=== PATIENT | female | born 1970 ===

== ENCOUNTER 2020-06-12 10:15 | Outpatient (REF) | payer OTHER, SELFPAY ==
--- NOTE | ~2020-06-12 | US_ITS ---
EXAMINATION: US VENOUS ULTRASOUND WITH DOPPLER LOWER EXTREMITY, LEFT CLINICAL INFORMATION: Acute embolism and thrombosis of unspecified deep veins COMPARISON: None TECHNIQUE: Ultrasound of the deep veins is performed from the hip to the calf with compression sonography and color and pulse Doppler assessment. Spectral analysis with color-flow imaging is performed. FINDINGS: There is normal venous compression and respiratory variation and augmented flow. The visualized common femoral vein, superficial femoral vein, profunda femoral vein, popliteal vein, and the trifurcation region shows no evidence of deep venous thrombosis. There is no significant popliteal fossa cyst. US/US venous duplex LE LT IMPRESSION: No DVT demonstrated in the left lower extremity.
== END 2020-06-12 10:16 | disposition home or self-care (01) ==
LOC: HO.HMGCX 10:15
PROVIDERS: PCP Internal Medicine; Visit Provider Nurse Practitioner Family
DX: I82.402 Acute embolism and thrombosis of unspecified deep veins of left lower extremity (principal)
CPT/HCPCS: 93971

== ENCOUNTER 2021-12-08 13:54 | Emergency (ER) | payer MEDICAID, SELFPAY ==
[2021-12-08 14:23] VITALS: BP 141/75; PULSE 91; RESP 18; TEMP 37.2; O2SAT 95; BMI 46.7
[2021-12-08 16:18] LABS: Appearance Urine Clear; Color Urine Yellow; Glucose Urine UA Negative (Negative); Leukocyte Esterase Urine Negative (Negative); Nitrite Urine Negative (Negative); Urine Blood Moderate (2+) (Negative); Urine Ketones Negative (Negative); Urine Protein Trace mg/dL (Neg-Trace)
[2021-12-08 16:23] LABS: Bacteria Urine 4+ (None Seen); Hyaline Casts Urine 0-2 /LPF (0-2); Squamous Epithelial Cell Urine 0-2 /HPF (0-2); WBC Urine 0-5 /HPF (0-5)
== END 2021-12-08 21:51 | disposition left against medical advice (07) ==
LOC: HO.ED 21:42
PROVIDERS: Emergency Provider Emergency Medicine; PCP Internal Medicine
DX: R10.9 Unspecified abdominal pain (principal); R11.2 Nausea with vomiting, unspecified
CPT/HCPCS: 81001; 99282

== ENCOUNTER 2023-02-15 05:46 | Inpatient (IN) | payer MEDICAID, SELFPAY ==
--- NOTE | ~2023-02-15 | US_ITS ---
EXAMINATION: US ABDOMEN LIMITED CLINICAL INFORMATION: Right upper quadrant pain. COMPARISON: None available. TECHNIQUE: Real-time imaging of the right upper quadrant abdominal viscera. FINDINGS: PANCREAS: Obscured. LIVER: The liver is normal in size. The liver contour is normal. There is diffuse increased liver parenchymal echogenicity, consistent with hepatic steatosis. No definite focal lesion is seen, but evaluation is limited due to poor sound beam penetration through the coarse echogenic liver parenchyma. There is no intrahepatic biliary duct dilatation seen. GALLBLADDER: Positive sonographic Wilks's sign. The gallbladder contains multiple stones and sludge with wall thickening/edema and pericholecystic fluid. COMMON BILE DUCT: Dilated in caliber measuring 1.3 cm in diameter. RIGHT KIDNEY: No hydronephrosis. No renal calculi or focal parenchymal lesions. The kidney measures 8.4 cm in maximum dimension. FREE FLUID: None. US/US abdomen limited IMPRESSION: Cholelithiasis with gallbladder wall thickening and pericholecystic fluid. Positive sonographic Wliks's sign. Findings likely represent cholecystitis. Advise clinical correlation and recommend surgical consultation. Dilated common duct at 1.3 cm. This may be further evaluated with MRCP. Hepatic steatosis.
--- NOTE | ~2023-02-15 | CT_ITS ---
EXAMINATION: CT ABDOMEN AND PELVIS WITH CONTRAST CLINICAL INFORMATION: Epigastric pain. COMPARISON: 02/15/2023 TECHNIQUE: Multidetector volumetric images were obtained from the superior aspect of the liver through the pubic symphysis following administration 85 mL of Omnipaque 350 intravenous contrast. Sagittal and coronal reformatted images were obtained on the technologist's workstation. Oral contrast: No This CT examination was performed using dose optimization techniques as appropriate, variously including the following: *Automated exposure control *Adjustment of mA and/or kV according to patient size (this includes techniques or standardized protocols for targeted exams where dose is matched to indication/reason for exam; i.e. extremities or head) *Use of iterative reconstruction technique DLP: 1497 mGy-cm FINDINGS: LUNG BASES: The visualized lung bases are unremarkable. LIVER, GALLBLADDER, AND BILIARY TREE: The liver is decreased in attenuation. The common duct measures 1.2 cm at the naatlie hepatis. Mild central intrahepatic biliary ductal dilatation is present. Distended gallbladder with gallstones. PANCREAS: Unremarkable. SPLEEN: Unremarkable. ADRENAL GLANDS: Unremarkable. KIDNEYS AND URETERS: The kidneys are normal in size, shape, and attenuation. 1.2 cm midpole left renal cyst. No further imaging follow-up is needed. No hydronephrosis or perinephric stranding. BLADDER: Unremarkable. GASTROINTESTINAL TRACT: The small and large bowel are unremarkable. The appendix is unremarkable. ABDOMINAL WALL: No significant hernia is appreciated. LYMPH NODES: No bulky lymphadenopathy. VASCULAR: Normal caliber abdominal aorta. PELVIC VISCERA: Unremarkable. OSSEOUS STRUCTURES: No destructive bone lesions. CT/CT abdomen pelvis w IV con IMPRESSION: Cholelithiasis with gallbladder distention. Please see results of right upper quadrant ultrasound performed concurrently. Intrahepatic and extrahepatic biliary ductal dilatation. MRCP may be performed for further evaluation.
[2023-02-15 05:47] VITALS: BP 156/73; PULSE 85; RESP 18; TEMP 36.8; O2SAT 98; BMI 41.8
[2023-02-15 06:06] VITALS: BP 156/97; PULSE 76; RESP 17; TEMP 37.3; O2SAT 97
--- NOTE | 2023-02-15 06:37 | ED_ITS ---
HPI - Abdominal Pain General Chief Complaint: Abdominal Pain Stated Complaint: gen med Time Seen by Provider: 02/15/23 06:34 Source: patient and RN notes reviewed Mode of arrival: ambulatory Limitations: no limitations History of Present Illness HPI narrative: This is a 52-year-old female, with a history of hypothyroidism and gastritis, presenting to emergency department with complaints of epigastric pain x2 days. Patient states that on Wednesday she had consumed chickpeas and salsa. She immediately started to feel acid in her throat. Patient states that she had 2 episodes of vomiting on wednesday and another episode of vomiting yesterday. She states that she did not take her omeprazole on Wednesday and believes that this had exacerbated her gastritis. She states that her current pain feels like her typical gastritis flares that she has had in the past. She denies any fevers, chills, chest pain, shortness of breath, current nausea, vomiting, diarrhea. She also reports that yesterday she had a bowel movement that relieved some of the pain. She had a D&C several years ago in [place], otherwise no other abdominal surgeries. She tried [id number] [place] for her symptoms which provided her with minimal relief. No other complaints or concerns at this time. MD elicited complaint: abdominal pain Pertinent past history: gastritis Onset (ago): day(s) Pain Consistency: constant Location: epigastric Severity: moderate Quality: cramping Radiation: none Migration to: no migration Exacerbating factors: eating Relieving factors: nothing Associated symptoms: denies other symptoms Related Data Home Medications Medication Instructions Recorded Confirmed albuterol sulfate 2.5 mg/3 mL mg inhalation TID 06/06/20 (0.083 %) solution for nebulization Previous Rx's Medication Instructions Recorded trazodone 100 mg tablet 100 mg PO DAILY #30 tabs 03/08/20 cyclobenzaprine 10 mg tablet 10 mg PO BEDTIME PRN muscle spasm 06/06/20 30 days #30 tabs ibuprofen 800 mg tablet 800 mg PO Q8H PRN pain 15 days #30 06/06/20 tabs albuterol sulfate 90 mcg/actuation 2 puff inhalation Q4H PRN 09/08/20 aerosol inhaler bronchospasm 30 days #6.7 grams levothyroxine 150 mcg tablet 150 mcg PO QAM #30 tabs 05/30/21 omeprazole 20 mg capsule,delayed 20 mg PO DAILY 90 days #90 caps 03/13/22 release Allergies Allergy/AdvReac Type Severity Reaction Status Date / Time No Known Allergies Allergy Verified 02/15/23 05:53 Review of Systems Review of Systems Yes all other systems are reviewed and are negative Constitutional: Reports as per HPI [facility] Past Medical History Medical History (Updated 02/15/23 @ 11:20 by TRUNG Sotelo) Breast pain Breast cancer screening, high risk patient Skin rash Hypothyroidism Left leg pain DVT of leg (deep venous thrombosis) Ectopic Family History Family History Father Diabetes mellitus Mother Unknown family medical history Paternal Grandmother Diabetes mellitus Hypertension Stroke Social History Social History (Updated 06/06/20 @ 11:10 by Kathy Quiñonez) Alcohol intake: never Cigarettes Per Day: 4 Smoked in Last 30 Days: Yes Use of substances other than those prescribed or required for medical reasons: No Advance Directives: No Advance Directives Information Provided: No Physical Exam ED Vital Signs: Vital Signs - 24 hr 02/15/23 05:47 02/15/23 06:06 02/15/23 09:30 Temperature 98.2 F 99.1 F 98.5 F Pulse Rate 85 76 74 Respiratory Rate 18 17 16 Blood Pressure 156/73 H 156/97 H 150/71 H Pulse Oximetry 98 97 96 Oxygen Delivery Method Room Air Room Air Room Air BMI result Body Mass Index 41.8 Const General: cooperative, comfortable and no acute distress Orientation/consciousness: patient oriented x3 Limitations: no limitations [facility] Head: Yes normal to inspection, Yes normocephalic and Yes atraumatic Ears: hearing grossly normal bilaterally General nose exam: Normal external nose present Face and sinus: Yes normal facial exam Mouth: Normal oral and palatal mucosa present, oropharynx normal and moist mucous membranes Throat: Yes posterior oropharynx normal Eyes General: appearance normal, both eyes and all related structures Eyelids: Yes eyelids normal Conjunctivae: conjunctivae normal Sclerae: sclerae normal Pupils: Equal, round and reactive pupils present EOM: EOMs intact bilaterally Neck Neck: Yes normal visual inspection, Yes full ROM and Yes no lymphadenopathy Lymphatic: no lymphadenopathy noted Chest Chest palpation & inspection: normal inspection of the chest Resp Effort & Inspection: normal respiratory effort and able to speak in complete sentences Auscultation: clear to auscultation bilaterally, no crackles, no rales, no rhonchi and no wheezes Cardio Rate: regular rate Rhythm: regular rhythm Heart sounds: S1 normal heart sound present and S2 normal heart sound present GI Other: Abdomen is soft, with mild tenderness to palpation in the epigastrium and right upper quadrant. No rebound or guarding. Inspection: Yes normal to inspection Skin General skin exam: no rashes or lesions noted Trauma: no lacerations or abrasions Wounds: no wounds Neuro General: patient oriented x3 and moves all extremities Cranial nerves: Yes Equal, round and reactive pupils present Extrem General: Yes normal to inspection Right upper extremity: normal to inspection Left upper extremity: normal to inspection Right lower extremity: normal to inspection Left lower extremity: normal to inspection Course Reevaluation(s) Reevaluation #1: Ultrasound returns, cholelithiasis with gallbladder wall thickening in pericholecystic fluid. Positive sonographic Wilks sign. Findings likely represent cholecystitis. The common bile duct is dilated at 1.3 cm. Patient re-evaluated, patient's pain improved to about a 7/10 after receiving GI cocktail. Discussed ultrasound findings with patient. Added lactic, cultures, and GGT. Discussed case with my attending physician, Dr. Yo. Will consult surgery for further evaluation. Time: 08:48 Reevaluation #2: Spoke to Dr. Myers who recommends CT with IV contrast. Time: 08:59 Reevaluation #3: CT with abdomen shows cholelithiasis with gallbladder distention. Intrahepatic and extrahepatic biliary ductal dilation. MRCP may be performed for further evaluation. Discussed case with Dr. Myers who will admit patient for further workup. Transfer care initiated Medical Decision Making Medical Decision Making MDM Narrative: This is a 52-year-old female, with a history of hypothyroidism and gastritis, presenting to the emergency department, with complaints of epigastric pain x2 days. On arrival, patient mildly hypertensive at 156/73, all vital signs within normal limits. Abdomen is soft, with tenderness palpation in the epigastrium and right upper quadrant. Plan: Labs, GI cocktail, reassess Differential Diagnosis Differential Diagnoses: The differential diagnosis associated with the presentation includes Gastritis, gastroenteritis, ACS-unlikely, cholelithiasis, cholangitis Admission/Observation Consideration of admission/observation: Escalation of care including admission/observation considered Patient would have been admitted to the hospital had her work up had any findings where hospital admission was appropriate and her clinical presentation warranted hospital admission. Lab Data MDM Lab Attestation statement: I reviewed the patient's lab results. Leukocytosis noted to be at 12.7, GGT elevated at 36, troponin negative. 02/15/23 06:55 02/15/23 06:55 Labs: Lab Results 02/15/23 02/15/23 02/15/23 Range/Units 06:55 07:18 08:52 WBC 12.7 H (4.8-10.8) X10*3/uL RBC 5.76 H (4.20-5.50) X10*6/uL Hgb 15.4 (12.0-16.0) g/dl Hct 46.7 (37.0-47.0) % MCV 81.1 (80.0-98.0) fL MCH 26.7 L (27.0-33.0) pg MCHC 33.0 (31.0-35.0) g/dl RDW 13.9 (11.0-16.0) % Plt Count 297 (160-400) X10*3/uL MPV 10.1 (9.4-12.3) fL Absolute Nucleated RBC 0.000 (0.0-0.012) X10*3/uL Nucleated RBC % (auto) 0.0 (0.0-0.2) /100WBC Sodium 138 (135-145) mmol/L Potassium 3.7 (3.3-5.1) mmol/L Chloride 103 (96-108) mmol/L Carbon Dioxide 26 (22-29) mmol/L Anion Gap 13 (12-20) BUN 6 L (9-16) mg/dL Creatinine 0.76 (0.5-1.4) mg/dL Estim Creat Clear Calc 103.8 Estimated GFR > 60 Random Glucose 130 H (60-115) mg/dL Lactic Acid 0.9 (0.5-2.0) mmol/L Calcium 9.5 (8.4-10.2) mg/dL Total Bilirubin 0.5 (0.0-1.0) mg/dL GGT (7-33) U/L AST 12 (5-31) U/L ALT 15 (0-31) U/L Alkaline Phosphatase 117 (39-117) U/L Troponin I High Sens < 2.7 (<3.5-17.0) ng/L Total Protein 7.5 (6.5-8.0) g/dL Albumin 4.2 (3.5-5.0) g/dL Lipase 23 (8-78) U/L Urine Color Yellow Urine Appearance Clear Urine pH 7.0 (5.0-9.0) Ur Specific [place] <= 1.005 (1.005-1.025) Urine Protein Negative (Neg-Trace) mg/dL Urine Glucose (UA) Negative (Negative) mg/dL Urine Ketones Negative (Negative) mg/dL Urine Blood Small (1+) H (Negative) Urine Nitrite Negative (Negative) Ur Leukocyte Esterase Negative (Negative) Urine RBC 6-10 H (0-2) /HPF Urine WBC 0-5 (0-5) /HPF Ur Squamous Epith Cells 0-2 (0-2) /HPF Urine Bacteria None Seen (None Seen) Hyaline Casts 0-2 (0-2) /LPF 02/15/23 Range/Units 09:05 WBC (4.8-10.8) X10*3/uL RBC (4.20-5.50) X10*6/uL Hgb (12.0-16.0) g/dl Hct (37.0-47.0) % MCV (80.0-98.0) fL MCH (27.0-33.0) pg MCHC (31.0-35.0) g/dl RDW (11.0-16.0) % Plt Count (160-400) X10*3/uL MPV (9.4-12.3) fL Absolute Nucleated RBC (0.0-0.012) X10*3/uL Nucleated RBC % (auto) (0.0-0.2) /100WBC Sodium (135-145) mmol/L Potassium (3.3-5.1) mmol/L Chloride (96-108) mmol/L Carbon Dioxide (22-29) mmol/L Anion Gap (12-20) BUN (9-16) mg/dL Creatinine (0.5-1.4) mg/dL Estim Creat Clear Calc Estimated GFR Random Glucose (60-115) mg/dL Lactic Acid (0.5-2.0) mmol/L Calcium (8.4-10.2) mg/dL Total Bilirubin (0.0-1.0) mg/dL GGT 36 H (7-33) U/L AST (5-31) U/L ALT (0-31) U/L Alkaline Phosphatase (39-117) U/L Troponin I High Sens (<3.5-17.0) ng/L Total Protein (6.5-8.0) g/dL Albumin (3.5-5.0) g/dL Lipase (8-78) U/L Urine Color Urine Appearance Urine pH (5.0-9.0) Ur Specific [place] (1.005-1.025) Urine Protein (Neg-Trace) mg/dL Urine Glucose (UA) (Negative) mg/dL Urine Ketones (Negative) mg/dL Urine Blood (Negative) Urine Nitrite (Negative) Ur Leukocyte Esterase (Negative) Urine RBC (0-2) /HPF Urine WBC (0-5) /HPF Ur Squamous Epith Cells (0-2) /HPF Urine Bacteria (None Seen) Hyaline Casts (0-2) /LPF Radiology Impression Discussion of test interpretation with radiology: I have reviewed the radiologist's reading. Radiologist Impression: EXAMINATION: CT ABDOMEN AND PELVIS WITH CONTRAST CLINICAL INFORMATION: Epigastric pain. COMPARISON: 02/15/2023 TECHNIQUE: Multidetector volumetric images were obtained from the superior aspect of the liver through the pubic symphysis following administration 85 mL of Omnipaque 350 intravenous contrast. Sagittal and coronal reformatted images were obtained on the technologist's workstation. Oral contrast: No This CT examination was performed using dose optimization techniques as appropriate, variously including the following: *Automated exposure control *Adjustment of mA and/or kV according to patient size (this includes techniques or standardized protocols for targeted exams where dose is matched to indication/reason for exam; i.e. extremities or head) *Use of iterative reconstruction technique DLP: 1497 mGy-cm FINDINGS: LUNG BASES: The visualized lung bases are unremarkable. LIVER, GALLBLADDER, AND BILIARY TREE: The liver is decreased in attenuation. The common duct measures 1.2 cm at the natalie hepatis. Mild central intrahepatic biliary ductal dilatation is present. Distended gallbladder with gallstones. PANCREAS: Unremarkable. SPLEEN: Unremarkable. ADRENAL GLANDS: Unremarkable. KIDNEYS AND URETERS: The kidneys are normal in size, shape, and attenuation. 1.2 cm midpole left renal cyst. No further imaging follow-up is needed. No hydronephrosis or perinephric stranding. BLADDER: Unremarkable. GASTROINTESTINAL TRACT: The small and large bowel are unremarkable. The appendix is unremarkable. ABDOMINAL WALL: No significant hernia is appreciated. LYMPH NODES: No bulky lymphadenopathy. VASCULAR: Normal caliber abdominal aorta. PELVIC VISCERA: Unremarkable. OSSEOUS STRUCTURES: No destructive bone lesions. CT/CT abdomen pelvis w IV con IMPRESSION: Cholelithiasis with gallbladder distention. Please see results of right upper quadrant ultrasound performed concurrently. Intrahepatic and extrahepatic biliary ductal dilatation. MRCP may be performed for further evaluation. Dictated By: Marlon Kat MD Signed By: <Electronically sign EXAMINATION: US ABDOMEN LIMITED CLINICAL INFORMATION: Right upper quadrant pain. COMPARISON: None available. TECHNIQUE: Real-time imaging of the right upper quadrant abdominal viscera. FINDINGS: PANCREAS: Obscured. LIVER: The liver is normal in size. The liver contour is normal. There is diffuse increased liver parenchymal echogenicity, consistent with hepatic steatosis. No definite focal lesion is seen, but evaluation is limited due to poor sound beam penetration through the coarse echogenic liver parenchyma. There is no intrahepatic biliary duct dilatation seen. GALLBLADDER: Positive sonographic Wilks's sign. The gallbladder contains multiple stones and sludge with wall thickening/edema and pericholecystic fluid. COMMON BILE DUCT: Dilated in caliber measuring 1.3 cm in diameter. RIGHT KIDNEY: No hydronephrosis. No renal calculi or focal parenchymal lesions. The kidney measures 8.4 cm in maximum dimension. FREE FLUID: None. US/US abdomen limited IMPRESSION: Cholelithiasis with gallbladder wall thickening and pericholecystic fluid. Positive sonographic Wilks's sign. Findings likely represent cholecystitis. Advise clinical correlation and recommend surgical consultation. Dilated common duct at 1.3 cm. This may be further evaluated with MRCP. Hepatic steatosis. Dictated By: Marlon Kat MD Medications Administered Generic Name Dose Route Start Last Admin Trade Name Freq PRN Reason Stop Dose Admin Lactated Ringer's 1,000 mls @ 80 mls/hr 02/15/23 12:15 02/15/23 12:22 Lr IVCONT 80 mls/hr .[id number] JUWAN Administration Morphine Sulfate 3 mg 02/15/23 12:06 02/15/23 12:22 Morphine Sulfate 4 Mg/Ml Cartridge IVPUSH 3 mg Q3H PRN Administration pain,severe Protocol Discontinued Medications Generic Name Dose Route Start Last Admin Trade Name Kamilla PRN Reason Stop Dose Admin Al Hydroxide/Mg Hydroxide 30 ml 02/15/23 06:48 02/15/23 07:16 Magnesium Hydrox/Alum Hydrox 30 Ml Oral.Susp PO 02/15/23 06:49 30 ml ONCE ONE Administration Sodium Chloride 1,000 mls @ 999 mls/hr 02/15/23 09:03 02/15/23 10:51 Ns IV 02/15/23 10:03 Infused .Q1H1M ONE Infusion Piperacillin Sod/Tazobactam 50 mls @ 100 mls/hr 02/15/23 09:02 02/15/23 10:51 Sod 3.375 gm/ Sodium Chloride IV 02/15/23 09:31 Infused ONCE ONE Infusion Iohexol 100 ml 02/15/23 09:48 02/15/23 09:48 Iohexol 350 Mg/Ml 100 Ml Infus..Btl IV 02/15/23 09:49 85 ml ONCE ONE Administration Lidocaine HCl 15 ml 02/15/23 06:48 02/15/23 07:16 Lidocaine Hcl Viscous 2 % 15 Ml Solution MUCOUS MEM 02/15/23 06:49 15 ml ONCE ONE Administration Morphine Sulfate 4 mg 02/15/23 10:21 02/15/23 10:30 Morphine Sulfate 4 Mg/Ml Cartridge IVPUSH 02/15/23 10:22 4 mg ONCE ONE Administration Protocol Critical Care Time Critical Care Time Critical Care Time: Yes Total Critical Care Time: 35 Attestation: I have personally provided critical care time exclusive of time spent on separately billable procedures. Time includes review of lab data, radiology results, discussion with consultants, and monitoring for potential decompensation. Intervention performed as documented. Discharge Plan Discharge Clinical Impression: Acute cholecystitis Patient Disposition: Admitted As Inpatient
[2023-02-15 07:02] LABS: Hematocrit 46.7 % (37.0-47.0); Hemoglobin 15.4 g/dl (12.0-16.0); Mean Corpuscular Hemoglobin 26.7 pg (27.0-33.0); Mean Corpuscular Volume 81.1 fL (80.0-98.0); Mean Platelet Volume 10.1 fL (9.4-12.3); Platelet Count 297 X10*3/uL (160-400); Red Blood Count 5.76 X10*6/uL (4.20-5.50); Red Cell Distribution Width 13.9 % (11.0-16.0); White Blood Count 12.7 X10*3/uL (4.8-10.8)
[2023-02-15] MEDS: Magnesium Hydrox/Alum Hydrox 30 ML ORAL.SUSP PO (07:16)
[2023-02-15] MEDS: Lidocaine HCl Viscous 2 % 15 ML SOLUTION MUCOUS MEM (07:16)
--- NOTE | 2023-02-15 07:17 | PC.NURSE ---
patient medicated per the MAR, ultrasound at bedside
[2023-02-15 07:21] LABS: Alanine Aminotransferase 15 U/L (0-31); Albumin Level 4.2 g/dL (3.5-5.0); Alkaline Phosphatase 117 U/L (39-117); Anion Gap 13 (12-20); Aspartate Amino Transferase 12 U/L (5-31); Bilirubin Total 0.5 mg/dL (0.0-1.0); Blood Urea Nitrogen 6 mg/dL (9-16); Calcium 9.5 mg/dL (8.4-10.2); Carbon Dioxide 26 mmol/L (22-29); Chloride 103 mmol/L (96-108); Creatinine Clr Calc Pharmacy 103.8; Estimated Glomerular Filt Rate > 60; Glucose Random 130 mg/dL (60-115); Lipase 23 U/L (8-78); Potassium 3.7 mmol/L (3.3-5.1); Sodium 138 mmol/L (135-145); Total Protein 7.5 g/dL (6.5-8.0)
[2023-02-15 07:25] LABS: Troponin-I High Sensitivity < 2.7 ng/L (<3.5-17.0)
[2023-02-15 07:27] LABS: Appearance Urine Clear; Color Urine Yellow; Glucose Urine UA Negative (Negative); Leukocyte Esterase Urine Negative (Negative); Nitrite Urine Negative (Negative); Specific Gravity - Urine <= 1.005 (1.005-1.025); UMIC TRIGGER UACC YES; Urine Blood Small (1+) (Negative); Urine Ketones Negative (Negative); Urine Protein Negative (Neg-Trace)
[2023-02-15 07:32] LABS: Bacteria Urine None Seen (None Seen); Hyaline Casts Urine 0-2 /LPF (0-2); Squamous Epithelial Cell Urine 0-2 /HPF (0-2); WBC Urine 0-5 /HPF (0-5)
[2023-02-15 09:12] LABS: Lactic Acid 0.9 mmol/L (0.5-2.0)
[2023-02-15] MEDS: 0.9 % Sodium Chloride 1,000 ML 999 ML IV (09:25)
[2023-02-15] MEDS: Piperacillin Sodium/Tazobactam 3.375 GM in 0.9 % Sodium Chloride 50 ML IV ×3 (09:26→19:52)
[2023-02-15 09:29] LABS: Gamma Glutamyl Transpeptidase 36 U/L (7-33)
[2023-02-15 09:30] VITALS: BP 150/71; PULSE 74; RESP 16; TEMP 36.9; O2SAT 96
--- NOTE | 2023-02-15 09:32 | PC.NURSE ---
iv established, labs and cultures obtained. iv fluids/antibiotics infusing at this time. family at bedside, call cobb within reach. awaiting CT scan.
[2023-02-15] MEDS: iohexoL 350 MG/ML 100 ML INFUS..BTL IV (09:48)
[2023-02-15] MEDS: Morphine Sulfate 4 MG/ML CARTRIDGE IVPUSH (10:30)
--- NOTE | 2023-02-15 10:33 | PC.NURSE ---
medicated per the [facility] for pain, call cobb remains within reach.
--- NOTE | 2023-02-15 12:08 | P.HPGS_ITS ---
History of Present Illness History of Present Illness Date of Service: 02/17/23 Chief complaint: Acute Cholecystitis Narrative: Elizabeth Ralph is a 52 year old female with morbid obesity, who came to the emergency room this morning because of epigastric pain/upper abdominal pain. She says that this started about 2 days ago. She denies any nausea or vomiting. She says she has had no similar episodes in the past. She denies other GI complaints. She does have a history of gastritis. She denies any fever or chills. She has a history of surgery for tubal in [place] many years ago. Review of Systems Constitutional: Constitutional: Denies chills and Denies fever(s) Cardiovascular: Cardiovascular: Denies chest pain, Denies dyspnea and Denies dyspnea on exertion Respiratory: Respiratory: Denies cough, Denies dyspnea and Denies dyspnea on exertion Gastrointestinal: Gastrointestinal: Denies hematochezia and Denies change in bowel habits Genitourinary: Genitourinary: Denies hematuria Musculoskeletal: Musculoskeletal: Denies back pain and Denies limited range of motion Neurologic: Denies focal weakness and Denies convulsions Psychiatric: Psychiatric: Denies depression and Denies mood swings PMFSH Past Medical History Medical History Tubal ectopic Breast pain Breast cancer screening, high risk patient Skin rash Hypothyroidism Left leg pain DVT of leg (deep venous thrombosis) Ectopic Family History Family History Father Diabetes mellitus Mother Unknown family medical history Paternal Grandmother Diabetes mellitus Hypertension Stroke Social History Social History Household Members: Spouse and Children Housing: House Do you presently have visiting nurse or other home services: No Alcohol intake: never Patient Tobacco Use Status: Former Tobacco user Tobacco use type: Cigarette Cigarette Packs Per Day: 1 Cigarettes Per Day: 1 Years Smoked: 15 Smoked in Last 30 Days: Yes e-Cigarette/Vaping Use: Never Used Patient Interested in Nicotine Replacement: Yes Use of substances other than those prescribed or required for medical reasons: No Currently Displaying Signs/Symptoms of Drug Intoxication Withdrawal: No Have you been hit, kicked, punched, or otherwise hurt by someone within the past year? If so, by whom?: No Do you feel safe in your current relationship?: Yes Is there a partner from a previous relationship who is making you feel unsafe now?: No Are you made to feel afraid or neglected: No Are you DNR?: No Advance Directives: No Advance Directives Information Provided: No Do you have thoughts of harming others: None Do you have a plan to hurt others: No Plan Recently lost weight without trying: No How much weight loss: Not applicable Eating poorly because of decreased appetite: No Nutrition screen score: 0 Nutrition Risks: No Nutritional Risk Patient : No : No Poor oral hygiene: No service: No Meds Allergies Allergy/AdvReac Type Severity Reaction Status Date / Time No Known Allergies Allergy Verified 02/16/23 07:23 Active Medications: Current Medications Heparin Sodium (Porcine) (Heparin Sodium,Porcine 5,000 Unit/Ml Vial) 5,000 unit SUBCUT Q8H JUWAN Lactated Ringer's (Lr) 1,000 mls @ 80 mls/hr IVCONT .[id number] JUWAN Piperacillin Sod/Tazobactam (Sod 3.375 gm/ Sodium Chloride) 50 mls @ 100 mls/hr IV Q6H JUWAN Morphine Sulfate (Morphine Sulfate 4 Mg/Ml Cartridge) 3 mg IVPUSH Q3H PRN; Protocol PRN Reason: pain,severe Ondansetron HCl (Ondansetron Hcl 4 Mg/2 Ml Vial) 4 mg IVPUSH Q6H PRN PRN Reason: nausea Sodium Chloride (0.9 % Sodium Chloride Flush 3 Ml Syringe) 3 ml IVFLUSH QSHIFT JUWAN Home Medications Medication Instructions Recorded Confirmed Last Taken Type fluticasone propionate 110 1 puff inhalation BID 02/15/23 02/15/23 Unknown History mcg/actuation HFA aerosol inhaler (Flovent HFA) Physical Exam Vital Signs: Vital Signs: Last Vital Signs Temp 98.5 F 02/15/23 09:30 Pulse 74 02/15/23 09:30 Resp 16 02/15/23 09:30 BP 150/71 H 02/15/23 09:30 Pulse Ox 96 02/15/23 09:30 O2 Del Method Room Air 02/15/23 09:30 BMI result Body Mass Index 41.8 Const: Other: Morbidly obese General: comfortable and no acute distress Orientation/consciousness: patient oriented x3 Neck: Neck: Yes no lymphadenopathy Resp: Auscultation: clear to auscultation bilaterally Cardio: Rhythm: regular rhythm GI: Other: Tender on the upper abdomen mostly on the right and epigastric area Palpation (GI): Soft to palpation, Tenderness to palpation present (GI) and no guarding Neuro: General: patient oriented x3 Results Results Labs: Short CBC 02/15/23 Range/Units 06:55 WBC 12.7 H (4.8-10.8) X10*3/uL Hgb 15.4 (12.0-16.0) g/dl Hct 46.7 (37.0-47.0) % Plt Count 297 (160-400) X10*3/uL BMP 02/15/23 06:55 Sodium 138 Potassium 3.7 Chloride 103 Carbon Dioxide 26 BUN 6 L Creatinine 0.76 Calcium 9.5 Liver Function 02/15/23 02/15/23 Range/Units 06:55 09:05 Total Bilirubin 0.5 (0.0-1.0) mg/dL GGT 36 H (7-33) U/L AST 12 (5-31) U/L ALT 15 (0-31) U/L Alkaline Phosphatase 117 (39-117) U/L Albumin 4.2 (3.5-5.0) g/dL Urine 02/15/23 Range/Units 07:18 Urine Color Yellow Urine Appearance Clear Urine pH 7.0 (5.0-9.0) Ur Specific [place] <= 1.005 (1.005-1.025) Urine Protein Negative (Neg-Trace) mg/dL Urine Glucose (UA) Negative (Negative) mg/dL Abdomen CT scan report/results: report reviewed and image reviewed Abdominal ultrasound report/results: report reviewed and image reviewed Additional studies: Laboratory Results WBC 12.7 X10*3/uL (4.8-10.8) H 02/15/23 06:55 RBC 5.76 X10*6/uL (4.20-5.50) H 02/15/23 06:55 Hgb 15.4 g/dl (12.0-16.0) 02/15/23 06:55 Hct 46.7 % (37.0-47.0) 02/15/23 06:55 MCV 81.1 fL (80.0-98.0) 02/15/23 06:55 MCH 26.7 pg (27.0-33.0) L 02/15/23 06:55 MCHC 33.0 g/dl (31.0-35.0) 02/15/23 06:55 RDW 13.9 % (11.0-16.0) 02/15/23 06:55 Plt Count 297 X10*3/uL (160-400) 02/15/23 06:55 MPV 10.1 fL (9.4-12.3) 02/15/23 06:55 Absolute Nucleated RBC 0.000 X10*3/uL (0.0-0.012) 02/15/23 06:55 Nucleated RBC % (auto) 0.0 /100WBC (0.0-0.2) 02/15/23 06:55 Sodium 138 mmol/L (135-145) 02/15/23 06:55 Potassium 3.7 mmol/L (3.3-5.1) 02/15/23 06:55 Chloride 103 mmol/L (96-108) 02/15/23 06:55 Carbon Dioxide 26 mmol/L (22-29) 02/15/23 06:55 Anion Gap 13 (12-20) 02/15/23 06:55 BUN 6 mg/dL (9-16) L 02/15/23 06:55 Creatinine 0.76 mg/dL (0.5-1.4) 02/15/23 06:55 Estim Creat Clear Calc 103.8 02/15/23 06:55 Estimated GFR > 60 02/15/23 06:55 Random Glucose 130 mg/dL (60-115) H 02/15/23 06:55 Lactic Acid 0.9 mmol/L (0.5-2.0) 02/15/23 08:52 Calcium 9.5 mg/dL (8.4-10.2) 02/15/23 06:55 Total Bilirubin 0.5 mg/dL (0.0-1.0) 02/15/23 06:55 GGT 36 U/L (7-33) H 02/15/23 09:05 AST 12 U/L (5-31) 02/15/23 06:55 ALT 15 U/L (0-31) 02/15/23 06:55 Alkaline Phosphatase 117 U/L (39-117) 02/15/23 06:55 Troponin I High Sens < 2.7 ng/L (<3.5-17.0) 02/15/23 06:55 Total Protein 7.5 g/dL (6.5-8.0) 02/15/23 06:55 Albumin 4.2 g/dL (3.5-5.0) 02/15/23 06:55 Lipase 23 U/L (8-78) 02/15/23 06:55 Urine Color Yellow 02/15/23 07:18 Urine Appearance Clear 02/15/23 07:18 Urine pH 7.0 (5.0-9.0) 02/15/23 07:18 Ur Specific [place] <= 1.005 (1.005-1.025) 02/15/23 07:18 Urine Protein Negative mg/dL (Neg-Trace) 02/15/23 07:18 Urine Glucose (UA) Negative mg/dL (Negative) 02/15/23 07:18 Urine Ketones Negative mg/dL (Negative) 02/15/23 07:18 Urine Blood Small (1+) (Negative) H 02/15/23 07:18 Urine Nitrite Negative (Negative) 02/15/23 07:18 Ur Leukocyte Esterase Negative (Negative) 02/15/23 07:18 Urine RBC 6-10 /HPF (0-2) H 02/15/23 07:18 Urine WBC 0-5 /HPF (0-5) 02/15/23 07:18 Ur Squamous Epith Cells 0-2 /HPF (0-2) 02/15/23 07:18 Urine Bacteria None Seen (None Seen) 02/15/23 07:18 Hyaline Casts 0-2 /LPF (0-2) 02/15/23 07:18 Impressions Abdomen Ultrasound 02/15/23 07:51 IMPRESSION: Cholelithiasis with gallbladder wall thickening and pericholecystic fluid. Positive sonographic Wilks's sign. Findings likely represent cholecystitis. Advise clinical correlation and recommend surgical consultation. Dilated common duct at 1.3 cm. This may be further evaluated with MRCP. Hepatic steatosis. Abdomen/Pelvis CT 02/15/23 09:49 IMPRESSION: Cholelithiasis with gallbladder distention. Please see results of right upper quadrant ultrasound performed concurrently. Intrahepatic and extrahepatic biliary ductal dilatation. MRCP may be performed for further evaluation. Assessment and Plan (1) Acute cholecystitis: Status: Acute She presented in the ER for upper abdominal pain for about 2 days. I have reviewed her ultrasound and CAT scan. This does show some distension of her gallbladder along with gallstones. She has some thickening as well as mild pericholecystic changes consistent with acute cholecystitis I did review with her the option of proceeding with cholecystectomy. I discussed the technique of laparoscopic cholecystectomy and possible open. I reviewed the risks including but not limited to bleeding, infections, injury to other organs including bowel, liver, bile duct, retained stones, bile leak, as well as the benefits and alternatives. She understands that her perioperative risks are higher than average in view of her morbid obesity with a BMI of 41. She is a little hesitant about surgery but I have put her on the schedule for tomorrow. I have ordered for an MRCP in view of dilated hepatobiliary ducts. There was no obvious CBD stones. Her LFTs are also normal. Quality Stroke Does the patient have a stroke diagnosis?: No VTE Prior VTE?: No VTE Risk Level:: Medical - moderate - high VTE Device Contraindication: N/A - Device Ordered VTE Drug Contraindication: N/A - Med Ordered Procedures Date of Service Date of Service: 02/17/23
[2023-02-15] MEDS: Morphine Sulfate 4 MG/ML CARTRIDGE 3 MG IVPUSH ×3 (12:22→23:17)
[2023-02-15] MEDS: Lactated Ringers 1,000 ML 80 ML IVCONT (12:22)
[2023-02-15 12:27] VITALS: BP 138/70; PULSE 84; RESP 16; O2SAT 98
--- NOTE | 2023-02-15 12:37 | PC.NURSE ---
LR infusing at this time, medicated per the MAR for pain. MRI requesting screening form for patient, will potentially take her in approx 1 hr
--- NOTE | 2023-02-15 12:41 | PHA.MEDREC ---
Pharmacy Consult ? Medication Reconciliation Pharmacy has completed the medication reconciliation. Spoke to patient and confirmed medication list.
[2023-02-15 16:00] VITALS: BP 177/75; PULSE 75; RESP 18; TEMP 36.8; O2SAT 95
--- NOTE | 2023-02-15 16:48 | PM.EVENT ---
Event Note Date of Service: 02/16/23 Event Note: seen on afternoon rounds says pain is a little better unable to tolerate MRI abd soft repeat labs in AM if bili elevated, may need ERCP otherwise , lap manuelito planned in AM reviewed technique of procedure as well as risks, benefits and alternatives significant other in room Time Spent With Patient Time: Total time managing care of this patient today ____ minutes.
[2023-02-15] MEDS: 0.9 % Sodium Chloride Flush 3 ML SYRINGE IVFLUSH (19:52)
[2023-02-15 20:00] VITALS: BP 149/68; PULSE 85; RESP 18; TEMP 36.9; O2SAT 95
[2023-02-16] VITALS (11 sets, daily range): BP systolic 123–162; BP diastolic 52–87; PULSE 80–96; RESP 16–18; TEMP 36.1–37.2; O2SAT 93–100; BMI 41.8
[2023-02-16] MEDS: Lactated Ringers 1,000 ML 80 ML IVCONT ×3 (02:19→12:01)
[2023-02-16] MEDS: Piperacillin Sodium/Tazobactam 3.375 GM in 0.9 % Sodium Chloride 50 ML IV ×3 (02:19→20:38)
[2023-02-16] MEDS: Morphine Sulfate 4 MG/ML CARTRIDGE 3 MG IVPUSH ×2 (02:20→06:01)
[2023-02-16] MEDS: ondansetron HCL 4 MG/2 ML VIAL IVPUSH (02:30)
[2023-02-16] MEDS: Omeprazole 20 MG CAPSULE.DR PO (06:01)
[2023-02-16] MEDS: Levothyroxine Sodium 150 MCG TABLET PO (06:01)
--- NOTE | 2023-02-16 07:23 | HO.ANESPROP2 ---
[facility] Active Problems Active Problems: All Active Problems (Updated 02/16/23 @ 00:55 by Thomas Myers MD) Tubal ectopic (Acute) Acute cholecystitis (Acute) Breast pain (Acute) Breast cancer screening, high risk patient (Acute) Skin rash (Acute) Hypothyroidism (Acute) Left leg pain (Acute) DVT of leg (deep venous thrombosis) (Acute) Past Medical History Medical History Tubal ectopic Breast pain Breast cancer screening, high risk patient Skin rash Hypothyroidism Left leg pain DVT of leg (deep venous thrombosis) Ectopic Family History Family History Father Diabetes mellitus Mother Unknown family medical history Paternal Grandmother Diabetes mellitus Hypertension Stroke Surgical History History of Problems with Anesthesia: No Social History Social History Household Members: Spouse and Children Housing: House Do you presently have visiting nurse or other home services: No Alcohol intake: never Patient Tobacco Use Status: Former Tobacco user Tobacco use type: Cigarette Cigarette Packs Per Day: 1 Cigarettes Per Day: 1 Years Smoked: 15 Smoked in Last 30 Days: Yes e-Cigarette/Vaping Use: Never Used Patient Interested in Nicotine Replacement: Yes Use of substances other than those prescribed or required for medical reasons: No Have you been hit, kicked, punched, or otherwise hurt by someone within the past year? If so, by whom?: No Do you feel safe in your current relationship?: Yes Is there a partner from a previous relationship who is making you feel unsafe now?: No Are you made to feel afraid or neglected: No Are you DNR?: No Advance Directives: No Advance Directives Information Provided: No Do you have thoughts of harming others: None Do you have a plan to hurt others: No Plan Recently lost weight without trying: No How much weight loss: Not applicable Eating poorly because of decreased appetite: No Nutrition screen score: 0 Nutrition Risks: No Nutritional Risk Patient : No : No Poor oral hygiene: No Meds Allergies Allergy/AdvReac Type Severity Reaction Status Date / Time No Known Allergies Allergy Verified 02/16/23 07:23 Active Medications: Current Medications Albuterol Sulfate (Albuterol Sulfate 90 Mcg 8 Gm Inhaler) 2 puff INHALE Q4H PRN PRN Reason: bronchospasm Fluticasone Propionate (Fluticasone Propionate 100 Mcg Blst.W.Dev) 1 puff INHALE RBID [facility] Last Admin: 02/15/23 19:17 Dose: Not Given Heparin Sodium (Porcine) (Heparin Sodium,Porcine 5,000 Unit/Ml Vial) 5,000 unit SUBCUT Q8H [facility] Lactated Ringer's (Lr) 1,000 mls @ 80 mls/hr IVCONT .[id number] [facility] Last Infusion: 02/16/23 07:20 Dose: 0 mls/hr Piperacillin Sod/Tazobactam (Sod 3.375 gm/ Sodium Chloride) 50 mls @ 100 mls/hr IV Q6H [facility] Last Infusion: 02/16/23 03:00 Dose: Infused Levothyroxine Sodium (Levothyroxine Sodium 150 Mcg Tablet) 150 mcg PO DAILY@0600 [facility] Last Admin: 02/16/23 06:01 Dose: 150 mcg Morphine Sulfate (Morphine Sulfate 4 Mg/Ml Cartridge) 3 mg IVPUSH Q3H PRN; Protocol PRN Reason: pain,severe Last Admin: 02/16/23 06:01 Dose: 3 mg Omeprazole (Omeprazole 20 Mg Capsule.Dr) 20 mg PO DAILY@0630 [facility] Last Admin: 02/16/23 06:01 Dose: 20 mg Ondansetron HCl (Ondansetron Hcl 4 Mg/2 Ml Vial) 4 mg IVPUSH Q6H PRN PRN Reason: nausea Last Admin: 02/16/23 02:30 Dose: 4 mg Sodium Chloride (0.9 % Sodium Chloride Flush 3 Ml Syringe) 3 ml IVFLUSH QSHIFT [facility] Last Admin: 02/15/23 19:52 Dose: 3 ml Home Medications Medication Instructions Recorded Confirmed Last Taken Type fluticasone propionate 110 1 puff inhalation BID 02/15/23 02/15/23 Unknown History mcg/actuation HFA aerosol inhaler (Flovent HFA) Exam Exam Date and Time: February 16, 2023722 Height,Weight and Vital Signs: Height 5 ft 3 in Weight 107 kg Last Vital Signs Temp 98.7 F 02/16/23 04:00 Pulse 85 02/16/23 04:00 Resp 16 02/16/23 04:00 BP 147/70 H 02/16/23 04:00 Pulse Ox 95 02/16/23 04:00 O2 Del Method Room Air 02/16/23 04:00 Pertinent Lab Results Pertinent Lab Results: Laboratory Tests 02/15/23 02/15/23 02/15/23 06:55 07:18 08:52 WBC 12.7 H RBC 5.76 H Hgb 15.4 Hct 46.7 MCV 81.1 MCH 26.7 L MCHC 33.0 RDW 13.9 Plt Count 297 MPV 10.1 Absolute Nucleated RBC 0.000 Nucleated RBC % (auto) 0.0 Sodium 138 Potassium 3.7 Chloride 103 Carbon Dioxide 26 Anion Gap 13 BUN 6 L Creatinine 0.76 Estim Creat Clear Calc 103.8 Estimated GFR > 60 Random Glucose 130 H Lactic Acid 0.9 Calcium 9.5 Total Bilirubin 0.5 GGT AST 12 ALT 15 Alkaline Phosphatase 117 Troponin I High Sens < 2.7 Total Protein 7.5 Albumin 4.2 Lipase 23 Urine Color Yellow Urine Appearance Clear Urine pH 7.0 Ur Specific [place] <= 1.005 Urine Protein Negative Urine Glucose (UA) Negative Urine Ketones Negative Urine Blood Small (1+) H Urine Nitrite Negative Ur Leukocyte Esterase Negative Urine RBC 6-10 H Urine WBC 0-5 Ur Squamous Epith Cells 0-2 Urine Bacteria None Seen Hyaline Casts 0-2 02/15/23 09:05 WBC RBC Hgb Hct MCV MCH MCHC RDW Plt Count MPV Absolute Nucleated RBC Nucleated RBC % (auto) Sodium Potassium Chloride Carbon Dioxide Anion Gap BUN Creatinine Estim Creat Clear Calc Estimated GFR Random Glucose Lactic Acid Calcium Total Bilirubin GGT 36 H AST ALT Alkaline Phosphatase Troponin I High Sens Total Protein Albumin Lipase Urine Color Urine Appearance Urine pH Ur Specific [place] Urine Protein Urine Glucose (UA) Urine Ketones Urine Blood Urine Nitrite Ur Leukocyte Esterase Urine RBC Urine WBC Ur Squamous Epith Cells Urine Bacteria Hyaline Casts Airway Mallampati Class: III TM Dist: >3cm Neck ROM: Full Loose/Missing/Broken Teeth: Yes, Upper and Lower Heart: RRR Lungs: CTA Assessment and Plan Assessment Anesthesia Assessment: Anesthesia Plan Discussed and Chart Reviewed Final Anesthetic Review History of Problems with Anesthesia: No NPO: Yes ASA Class: III Final Preanesthetic Review: Meds/Allgs Chart Reviewed, Consent Obtained/Reviewed and Anes Risks/Benef Reviewed Patient Risk: Intermediate Procedure Risk: Intermediate Anesthetic Plan Anesthetic Plan: GA Disposition: Standard PACU
[2023-02-16 07:51] LABS: Hematocrit 45.2 % (37.0-47.0); Hemoglobin 14.6 g/dl (12.0-16.0); Mean Corpuscular HGB Conc 32.3 g/dl (31.0-35.0); Mean Corpuscular Hemoglobin 26.8 pg (27.0-33.0); Mean Corpuscular Volume 82.9 fL (80.0-98.0); Platelet Count 269 X10*3/uL (160-400); Red Blood Count 5.45 X10*6/uL (4.20-5.50); Red Cell Distribution Width 14.1 % (11.0-16.0); White Blood Count 12.9 X10*3/uL (4.8-10.8)
[2023-02-16 08:03] LABS: Alanine Aminotransferase 70 U/L (0-31); Albumin Level 3.7 g/dL (3.5-5.0); Alkaline Phosphatase 124 U/L (39-117); Anion Gap 12 (12-20); Aspartate Amino Transferase 46 U/L (5-31); Bilirubin Direct 0.7 mg/dL (0.0-0.5); Bilirubin Total 1.3 mg/dL (0.0-1.0); Blood Urea Nitrogen 6 mg/dL (9-16); Calcium 8.7 mg/dL (8.4-10.2); Carbon Dioxide 28 mmol/L (22-29); Chloride 105 mmol/L (96-108); Creatinine Clr Calc Pharmacy 114.2; Estimated Glomerular Filt Rate > 60; Glucose Random 109 mg/dL (60-115); Potassium 3.9 mmol/L (3.3-5.1); Sodium 141 mmol/L (135-145); Total Protein 6.8 g/dL (6.5-8.0)
--- NOTE | 2023-02-16 08:09 | PM.EVENT ---
Event Note Date of Service: 02/17/23 Event Note: repeat LFTs mildly elevated - may be secondary to acute inflammation WBC still elevated some tenderness of epig area, RUQ will proceed with lap manuelito if anatomy favorable - may do cholangiogran pt also understands possibility of needing ERCP if she does have CBD stones Will continue to follow LFTs Time Spent With Patient Time: Total time managing care of this patient today ____ minutes.
--- NOTE | 2023-02-16 10:27 | P.OP_ITS ---
Operative Note Operative Note Date of Service: 02/16/23 Narrative: Prep diagnosis: Acute calculous cholecystitis Postop diagnosis: Acute calculous cholecystitis, with severe thickening and induration of the gallbladder wall Procedure: Laparoscopic cholecystectomy Surgeon: Thomas Myers MD guest services assistant: TRUNG Blanco The patient is a 52-year-old female with morbid obesity, admitted yesterday because of upper abdominal pain, with imaging studies including a CT scan and ultrasound showing thickened gallbladder wall, pericholecystic fluid, along with gallstones. There was note of some dilatation in the common bile duct but her LFTs were within normal. There was note of a small bump in her bilirubin this morning. However, her pain had subsided and over all clinical picture was not highly suggestive of CBD stones. She was unable to tolerate MRCP. I therefore decided to proceed with laparoscopic cholecystectomy. She was brought to the operating room. He was placed supine under general seizure via endotracheal tube. The abdomen was prepped and draped in this was sterile fashion. A surgical time-out was done. The patient was receiving scheduled IV antibiotics I made a short incision on the supraumbilical margin using blade 15. This carried down with blunt XX on all the way to the full-thickness of the skin and subcutaneous fat down to the fascia. It is noted the patient was morbidly obese and have very thick amount of subcutaneous fat. The fascia was incised. The peritoneum was entered. Through this incision a Ryan port was introduced. Pneumoperitoneum was introduced to a pressure of 15 mm hg. From here on the rest of the procedure was done under vision with a 10 mm degree scope. We laparoscopic visualization I inserted a 5/ 12 minutes port in the epigastric area below the subcostal margin . Two 5 mm ports were introduced through small incisions in the subcostal margin along the entire sellar and the midclavicular line. Graspers were placed through these working ports. The patient was placed in head-up and [id number] position. the gallbladder was distended and markedly indurated and the graspers therefore could not be applied. I had to therefore decompressed gallbladder using an aspirating needle. This allowed us to grasper in the fundus to retract the gallbladder cephalad. I was able to apply another grasper towards the pouch of the gallbladder to retract this laterally. There was note of a lot of indurated, fatty areolar and fibrous tissue surrounding the neck of the gallbladder all the way to the area the cystic duct. We had to do careful dissection using the [place] dissector. This part of the procedure took an extended period of time because of the dense adhesions and fibrotic inflammatory changes. We had to proceed slowly with the [place] dissector. We divided fine bands until I was able to eventually see what appeared to be thick artery medial to this area of induration. I applied clips and this was transected between clips using endo- scissors We continued to fully use the [place] dissector to keep dissecting the rest of the fibrous tissue off of this indurated area at the neck of the gallbladder. Again this part of the procedure took an extended period of time until was able to actually thin out the neck towards the cystic duct. By doing so, I was able to eventually achieve a critical view of the hepatocystic triangle. There was no other structure that resembled any duct within this area. A1c therefore, as able to applied a large clip across the cystic duct past the neck. The cystic duct was transected between clips with Endo scissors The continue to carefully dissect the indurated and inflamed tissue to at the hilum until was able to reach the interface of the gallbladder wall and the liver bed. I used the hook electrocautery to continue to thin out the wall of the gallbladder at this interface and allowed me to carefully separate the gallbladder wall from the liver bed. We proceeded slowly although the fundus until the entire gallbladder was completely from the liver bed The gallbladder was retrieved through an endobag through the umbilical incision. I reinserted all ports and re-insufflated. I applied Surgicel on the liver bed in view of brisk oozing from a small tear in the muscle. Eventually this achieved good hemostasis I copies irrigated the area. I positioned a LC 7. Drain hepatic space and this was brought out through 1 of the port sites and secured to the skin with nylon 3-0 sutures I observed all 4 quadrants. There was note of a lot of adhesions as well in the right lower quadrant from her previous surgery for tubal After irrigation and suctioning of the again fluid, observed from a stasis. Hemostasis was confirmed. I desufflated to the port sites. Moved all ports under vision with the laparoscope. The fascia of the umbilical incision was closed with the [id number] Polysorb 0 stitch All skin incisions were closed with some 4-0 subcuticular sutures All incisions were infiltrated with Marcaine 0.5% for postop NATACHA. Dressings were applied. The procedure was completed The patient tolerated procedure well. There were no immediate complications. Estimated blood loss was about 200 cc The patient was extubated without difficulty and transferred to the recovery room with stable vital signs.
--- NOTE | 2023-02-16 13:01 | MHC.CM.PN ---
pt lives her spouse ,she has a ride home and is independent home no services
--- NOTE | 2023-02-16 14:05 | PM.EVENT ---
Event Note Date of Service: 02/17/23 Event Note: Seen postop Underwent difficult laparoscopic cholecystectomy earlier Sitting up on recliner Appears to have good pain control LC drain with dark old blood Incisions dry Abdomen soft Continue pain management Follow LFTs Significant other updated at bedside Patient seems to be doing well postop Time Spent With Patient Time: Total time managing care of this patient today ____ minutes.
[2023-02-16] MEDS: Heparin Sodium,Porcine 5,000 UNIT/ML VIAL 5000 UNIT SUBCUT (14:57)
[2023-02-16] MEDS: 0.9 % Sodium Chloride Flush 3 ML SYRINGE IVFLUSH (15:04)
[2023-02-16] MEDS: oxyCODONE HCl Immed Release 5 MG TABLET PO (20:36)
[2023-02-17] MEDS: Heparin Sodium,Porcine 5,000 UNIT/ML VIAL 5000 UNIT SUBCUT ×2 (00:02→08:26)
[2023-02-17] MEDS: Lactated Ringers 1,000 ML 80 ML IVCONT (00:05)
[2023-02-17] MEDS: Piperacillin Sodium/Tazobactam 3.375 GM in 0.9 % Sodium Chloride 50 ML IV ×2 (03:18→08:26)
[2023-02-17] MEDS: Morphine Sulfate 4 MG/ML CARTRIDGE IVPUSH ×2 (03:28→10:13)
[2023-02-17 03:42] VITALS: BP 109/56; PULSE 78; RESP 18; TEMP 36.4; O2SAT 94
[2023-02-17] MEDS: Levothyroxine Sodium 150 MCG TABLET PO (06:10)
[2023-02-17] MEDS: Omeprazole 20 MG CAPSULE.DR PO (06:10)
[2023-02-17 06:59] LABS: Alanine Aminotransferase 75 U/L (0-31); Albumin Level 3.3 g/dL (3.5-5.0); Alkaline Phosphatase 96 U/L (39-117); Aspartate Amino Transferase 35 U/L (5-31); Bilirubin Direct 0.2 mg/dL (0.0-0.5); Bilirubin Total 0.4 mg/dL (0.0-1.0)
[2023-02-17 07:46] VITALS: BP 120/73; PULSE 78; RESP 18; TEMP 36.8; O2SAT 95
[2023-02-17] MEDS: Fluticasone Propionate 100 MCG BLST.W.DEV 1 PUFF INHALE (07:59)
[2023-02-17 08:00] VITALS: PULSE 84; RESP 18; O2SAT 95
--- NOTE | 2023-02-17 08:22 | P.PNGS_ITS ---
Subjective Subjective Date of Service: 02/17/23 <Christa Blnaco PA-C - Last Filed: 02/17/23 08:28> 02/17/23 <Thomas Myers MD - Last Filed: 02/17/23 11:06> Interval history: Feels overall better, mild soreness at drain site. Tolerating solid diet. OOB to bathroom. <Christa Blanco PA-C - Last Filed: 02/17/23 08:28> Physical Exam 2 Vital Signs: Vital Signs: Last Vital Signs Temp 98.2 F 02/17/23 07:46 Pulse 84 02/17/23 08:00 Resp 18 02/17/23 08:00 BP 120/73 02/17/23 07:46 Pulse Ox 95 02/17/23 07:46 O2 Del Method Room Air 02/17/23 07:46 O2 Flow Rate 2.0 02/16/23 12:01 BMI result Body Mass Index 41.8 <Christa Blanco PA-C - Last Filed: 02/17/23 08:28> Const: General: comfortable, no acute distress and alert <Christa Blanco PA-C - Last Filed: 02/17/23 08:28> Orientation/consciousness: patient oriented x3 <CHICHO Cramer Last Filed: 02/17/23 08:28> Resp: Effort & Inspection: normal respiratory effort <Christa Blanco PA-C - Last Filed: 02/17/23 08:28> GI: Other: LC output nonbilious, scant <Christa Blanco PA-C - Last Filed: 02/17/23 08:28> Inspection: No distended and Yes incision (dressings c/d/i) <CHICHO Cramer Last Filed: 02/17/23 08:28> Palpation (GI): Soft to palpation, Tenderness to palpation present (GI) (mild incisional), no guarding and not rigid <CHICHO Cramer Last Filed: 02/17/23 08:28> Skin: General skin exam: no rashes or lesions noted <CHICHO Cramer Last Filed: 02/17/23 08:28> Neuro: General: patient oriented x3 <Christa Blanco PA-C - Last Filed: 02/17/23 08:28> Objective Data Active Medications Acetaminophen (Acetaminophen 325 Mg Tablet) 650 mg PO Q6H PRN PRN Reason: fever, pain Albuterol Sulfate (Albuterol Sulfate 90 Mcg 8 Gm Inhaler) 2 puff INHALE Q4H PRN PRN Reason: bronchospasm Fluticasone Propionate (Fluticasone Propionate 100 Mcg Blst.W.Dev) 1 puff INHALE RBID [facility] Last Admin: 02/17/23 07:59 Dose: 1 puff Documented By: LINDA Heparin Sodium (Porcine) (Heparin Sodium,Porcine 5,000 Unit/Ml Vial) 5,000 unit SUBCUT Q8H [facility] Last Admin: 02/17/23 00:02 Dose: 5,000 unit Documented By: TING Lactated Ringer's (Lr) 1,000 mls @ 80 mls/hr IVCONT .[id number] [facility] Last Infusion: 02/17/23 03:50 Dose: 80 mls/hr Documented By: TING Piperacillin Sod/Tazobactam (Sod 3.375 gm/ Sodium Chloride) 50 mls @ 100 mls/hr IV Q6H [facility] Last Infusion: 02/17/23 03:49 Dose: Infused Documented By: TING Levothyroxine Sodium (Levothyroxine Sodium 150 Mcg Tablet) 150 mcg PO DAILY@0600 [facility] Last Admin: 02/17/23 06:10 Dose: 150 mcg Documented By: TING Morphine Sulfate (Morphine Sulfate 4 Mg/Ml Cartridge) 4 mg IVPUSH Q4H PRN; Protocol PRN Reason: Pain, Severe (Pain Scale 7-10) Last Admin: 02/17/23 03:28 Dose: 4 mg Documented By: TING Omeprazole (Omeprazole 20 Mg Capsule.) 20 mg PO DAILY@0630 [facility] Last Admin: 02/17/23 06:10 Dose: 20 mg Documented By: TING Ondansetron HCl (Ondansetron Hcl 4 Mg/2 Ml Vial) 4 mg IVPUSH Q6H PRN PRN Reason: nausea Last Admin: 02/16/23 02:30 Dose: 4 mg Documented By: ORALIA Oxycodone HCl (Oxycodone Hcl Immed Release 5 Mg Tablet) 5 mg PO Q4H PRN PRN Reason: Pain, Moderate(Pain Scale 4-6) Last Admin: 02/16/23 20:36 Dose: 5 mg Documented By: LINDA Oxycodone HCl (Oxycodone Hcl Immed Release 5 Mg Tablet) 10 mg PO Q4H PRN PRN Reason: Pain, Severe (Pain Scale 7-10) Sodium Chloride (0.9 % Sodium Chloride Flush 3 Ml Syringe) 3 ml IVFLUSH [facility] Last Admin: 02/17/23 00:07 Dose: Not Given Documented By: TING Non-Admin Reason: IV Running <Christa Blanco PA-C - Last Filed: 02/17/23 08:28> Labs CBC & Chem 7: 02/16/23 07:42 02/16/23 07:42 <Christa Blanco PA-C - Last Filed: 02/17/23 08:28> Labs: Laboratory Results - last 24 hr 02/16/23 02/17/23 02/17/23 07:42 06:06 06:35 Hold Purple Top SEE NOTE Total Bilirubin 0.4 Direct Bilirubin 0.2 AST 35 H ALT 75 H Alkaline Phosphatase 96 Total Protein 6.0 L Albumin 3.3 L Blood Type B Negative Antibody Screen NEGATIVE <Christa Blanco PA-C - Last Filed: 02/17/23 08:28> Microbiology Microbiology Results: Microbiology 02/15/23 09:05 Blood Culture - Preliminary Blood - Venous No growth after 24 hours. 02/15/23 08:52 Blood Culture - Preliminary Blood - Venous No growth after 24 hours. <Christa Blanco PA-C - Last Filed: 02/17/23 08:28> Procedures Date of Service Date of Service: 02/17/23 <Christa Blanco PA-C - Last Filed: 02/17/23 08:28> 02/17/23 <Thomas Myers MD - Last Filed: 02/17/23 11:06> Progress Note: A&P Assessment and plan (1) Acute cholecystitis: Status: Acute <Christa Blanco PA-C - Last Filed: 02/17/23 08:28> Assessment and Plan: feels much better no events reported tolerating diet LC drain with old blood, low output possible discharge home later today will removed LC prior to discharge LFTs within normal seen and examined independently <Thomas Myers MD - Last Filed: 02/17/23 11:06> (2) S/P laparoscopic cholecystectomy: Status: Acute <Christa Blanco PA-C - Last Filed: 02/17/23 08:28> Assessment and Plan: POD #1 s/p lap manuelito. Doing well post op- pain minimal and tolerating solid diet. Abd benign with appropriate post op tenderness. LC output nonbilious and scanty. LFTs improved this am and bilirubin normalized. Will reassess later today for dc to home. Will remove drain prior. Patient encouraged OOB/ambulation of halls. Patient comfortable with plan. <Christa Blanco PA-C - Last Filed: 02/17/23 08:28> Time Spent With Patient Time: Total time managing care of this patient today ____ minutes. <Christa Blanco PA-C - Last Filed: 02/17/23 08:28> Quality Stroke Does the patient have a stroke diagnosis?: No <Christa Blanco PA-C - Last Filed: 02/17/23 08:28> VTE Prior VTE?: No <Christa Blanco PA-C - Last Filed: 02/17/23 08:28> VTE Risk Level:: Medical - moderate - high <Christa Blanco PA-C - Last Filed: 02/17/23 08:28> VTE Device Contraindication: N/A - Device Ordered <Christa Blanco PA-C - Last Filed: 02/17/23 08:28> VTE Drug Contraindication: N/A - Med Ordered <Christa Blanco PA-C - Last Filed: 02/17/23 08:28>
[2023-02-17] MEDS: 0.9 % Sodium Chloride Flush 3 ML SYRINGE IVFLUSH (08:26)
[2023-02-17] MEDS: oxyCODONE HCl Immed Release 5 MG TABLET PO (08:29)
--- NOTE | 2023-02-17 10:47 | HO.POSTANES ---
Post Anesthesia Evaluation Post Anesthesia Evaluation Date of Service: 02/17/23 Vital Signs: Vital Signs Temp Pulse Resp BP Pulse Ox O2 Del Method 02/17/23 08:00 84 18 02/17/23 07:46 98.2 F 78 18 120/73 95 Room Air 02/17/23 03:42 97.5 F 78 18 109/56 L 94 Room Air Anesthesia: General Endotracheal-GETA Mental Status: Awake Pain Control: Satisfactory Nausea/Vomiting: None Hydration: Adequate Anesthesia-Related Issues: No Anes. Related Issues
--- NOTE | 2023-02-17 11:30 | PM.DS ---
DS: Providers Provider Date of Service: 02/17/23 Date of admission: 02/15/23 12:03 Primary care physician: Tommy Physician Attending physician on admission: Thomas Myers Attending physician on discharge: Thomas Myers DS: Diagnosis Discharge Diagnosis (1) Acute cholecystitis: Status: Acute (2) S/P laparoscopic cholecystectomy: Status: Acute DS: Summary Hospital Course Hospital Course: HPI AT ADMISSION: Elizabeth Ralph is a 52 year old female with morbid obesity, who came to the emergency room this morning because of epigastric pain/upper abdominal pain. She says that this started about 2 days ago. She denies any nausea or vomiting. She says she has had no similar episodes in the past. She denies other GI complaints. She does have a history of gastritis. She denies any fever or chills. She has a history of surgery for tubal in [place] many years ago. CT scan showed distension of her gallbladder along with gallstones. She has some thickening as well as mild pericholecystic changes consistent with acute cholecystitis HOSPITAL COURSE: She was admitted to the surgical service for further treatment of acute cholecystitis. It was recommended to proceed with laparoscopic cholecystectomy and possible open. She was added onto the OR schedule for the following day. There was no obvious CBD stones and her LFTs were normal but an MRCP was ordered in view of dilated hepatobiliary ducts. She however could not tolerate this and therefore her LFTs were trended. There was a small bump in her bilirubin however her pain had subsided and overall clinical picture was not highly suggestive of CBD stone. On 02/16/23, a laparoscopic cholecystectomy was performed by Dr. Myers without complication. The gallbladder wall was severely thickened and indurated. She tolerated the procedure well. A LC was placed intraoperatively. She had an uncomplicated recovery course. On POD #1, she felt well with minimal pain and was tolerating a solid diet. Her abdomen was benign with clean intact dressings and her LC had nonbilious scant output and was therefore removed. Her LFTs improved and bilirubin normalized. She felt ready for discharge to home. She was discharged to home on 02/17/23 in stable condition. She is to follow up in the office in 2 weeks. Status at Discharge Functional status at discharge: independent ambulation Overall status at discharge: patient is progressing back to baseline Time Attestation Discharge coordination time: Less than 30 minutes Quality: Safe Use of Opioids Does Pt have an Active Cancer Diagnosis on the Problem List?: No Quality: Stroke Does the patient have a stroke diagnosis?: No Physical Exam Vital Signs: Vital Signs: Last Vital Signs Temp 98.2 F 02/17/23 07:46 Pulse 84 02/17/23 08:00 Resp 18 02/17/23 08:00 BP 120/73 02/17/23 07:46 Pulse Ox 95 02/17/23 07:46 O2 Del Method Room Air 02/17/23 07:46 O2 Flow Rate 2.0 02/16/23 12:01 BMI result Body Mass Index 41.8 DS: Data Data Completed and Pending Pending studies at discharge: 02/16/23 10:08 Surgical [PTH] Routine Gallbladder, cholecystectomy: Acute on chronic cholecystitis with hemorrhage and necrosis, and cholelithiasis Labs on day of discharge: Laboratory Results - last 24 hr 02/17/23 02/17/23 06:06 06:35 Hold Purple Top SEE NOTE Total Bilirubin 0.4 Direct Bilirubin 0.2 AST 35 H ALT 75 H Alkaline Phosphatase 96 Total Protein 6.0 L Albumin 3.3 L Preliminary micro results at discharge 02/15/23 09:05 Blood Culture - Preliminary Blood - Venous No growth after 48 hours. 02/15/23 08:52 Blood Culture - Preliminary Blood - Venous No growth after 48 hours. Discharge Plan Discharge Anticipated Discharge Date/Time: 02/17/23 12:10 Patient Disposition: Home, Self-Care Discharge Diagnosis: acute cholecystitis s/p laparoscopic cholecystectomy Referrals: Thomas Myers MD [Physician] - 2 Weeks Physician,Unknown J [Primary Care Provider] - 1 Week Discharge Medications: New ibuprofen 600 mg tablet 600 mg PO Q6H PRN (Reason: pain) Qty: 30 0RF oxycodone 5 mg tablet 5 mg PO Q4H PRN (Reason: pain (scale score 7-10)) Qty: 24 0RF Rx Instructions: Partial Fill upon patient request. docusate sodium [Colace] 100 mg capsule 100 mg PO BID PRN (Reason: constipation) Qty: 180 0RF Continued albuterol sulfate 90 mcg/actuation HFA aerosol inhaler 2 puff inhalation Q4H PRN (Reason: bronchospasm) 30 Days Qty: 6.7 3RF levothyroxine 150 mcg tablet 150 mcg PO QAM Qty: 30 6RF omeprazole 20 mg capsule,delayed release(DR/EC) 20 mg PO DAILY 90 Days Qty: 90 1RF fluticasone propionate [Flovent HFA] 110 mcg/actuation HFA aerosol inhaler 1 puff INHALATION BID ibuprofen 800 mg tablet 800 mg PO Q8H PRN (Reason: pain) 15 Days Qty: 30 0RF Discharge Orders: Discharge Order (Routine); Ordered 02/17/23 Ordered By: Christa Blanco Diet: Advance to usual diet Activity on Discharge: No heavy lifting Stand Alone Forms: Patient Portal Discharge page, Work/School Release Activity Restrictions/Additional Instructions: If the incision area is tender, you may apply an ice pack for short intervals (No more than 20 minutes on, followed by at least 20 minutes off). Do not apply heat. Do not use creams, lotions, or topical antibiotics. These can cause infection or allergic reaction. Ok to shower 24 hours after your surgery. Remove bandaids in 2 days and replace. You have steri strips (small white cloth strips) covering your incision- these will fall off ~1 week. Follow up in office with Dr. Myers in 2 weeks. ([phone]) No heavy lifting (>10-20lbs) or strenuous activity! Call Your Doctor If: -Your temperature exceeds 101.5? F -You experience excessive pain or swelling -You have an unexpected reaction to medication -You have excessive bleeding -You experience continued vomiting/nausea -Your incision begins to separate -Your incision shows signs of infection such as increased redness, swelling, excessive pain, drainage (light blood or clear fluid is normal) or heat Care Plan Goals: Return to baseline health and resume normal activities following recovery period. Health Concerns: acute cholecystitis Plan of Treatment: s/p laparoscopic cholecystectomy LC drain removal f/u in office in 2 weeks Assessment: Doing well post op.
--- NOTE | 2023-02-17 12:10 | MHC.CM.PN ---
Patient discharged to home with family assist and transport.
[2023-02-17] MEDS: oxyCODONE HCl Immed Release 5 MG TABLET 10 MG PO (13:07)
--- NOTE | 2023-02-17 14:01 | PM.EVENT ---
Event Note Date of Service: 02/17/23 Event Note: Seen on afternoon she continues feel well tolerating diet well abdomen soft LC drain removed she looks well okay to DC home discharge instructions reviewed will see in the office for follow-up Time Spent With Patient Time: Total time managing care of this patient today ____ minutes.
== END 2023-02-17 13:58 | disposition home or self-care (01) | DRG 263 ==
LOC: HO.ED 11:20 → HO.EDOVER 12:09 → HO.S3 14:45
PROVIDERS: Emergency Medicine; Physician Assistant Medical; Physician Assistant Surgical; Admitting Provider Surgery; Emergency Provider Emergency Medicine; Visit Provider Surgery
PROC: 0FT44ZZ Resection of Gallbladder, Percutaneous Endoscopic Approach (ICD-10-PCS; CPT 47562; principal; 2023-02-16 07:30)
DX: K80.00 Calculus of gallbladder with acute cholecystitis without obstruction (principal); E66.01 Morbid (severe) obesity due to excess calories; Z79.51 Long term (current) use of inhaled steroids; Z68.41 Body mass index [BMI] 40.0-44.9, adult; Z87.891 Personal history of nicotine dependence; Z79.899 Other long term (current) drug therapy
CPT/HCPCS: 36415; 74177; 76705; 80048; 80053; 80076; 81001; 82977; 83605; 83690; 84484; 85027; 86850; 86900; 86901; 87040; 88304; 94640; 99285; J0665; J1100; J1170; J1643; J2250; J2270; J2371; J2405; J2543; J3010; Q9967

== ENCOUNTER → 2023-02-15 12:03 | Outpatient (BNV) | payer MEDICAID, SELFPAY | PROVIDERS: Admitting Provider Surgery; Emergency Provider Emergency Medicine; Visit Provider Surgery | DX: K80.00 Calculus of gallbladder with acute cholecystitis without obstruction (principal) | CPT/HCPCS: 47562; 99024; 99222; 99238; 99499 ==

== ENCOUNTER 2023-03-01 09:55 | Outpatient (AMB) | payer MEDICAID, SELFPAY ==
--- NOTE | 2023-03-01 10:20 | A.OFFVIS_ITS ---
Intake Vital Signs 03/01/23 10:32 Height 56 ft Weight 250 lb BMI 0.4 BP 142/69 H Blood Pressure Location Lt brachial Position Sitting Pulse 92 Intake Visit Reasons: post lap manuelito Intake Note: Patient is seen in office for post op assessment post laparoscopic cholecystectomy. Patient c/o: denies any concerns after surgery [employer] Regulatory Lead Required: No Allergies No Known Allergies Allergy (Verified 02/16/23 07:23) HPI post lap manuelito HPI Details 52-year-old female here for postop visit . She had undergone laparoscopic cholecystectomy as an inpatient for acute cholecystitis last 02/16/2023. She tolerated procedure well and was discharged on postop day 1. She feels well overall and denies any significant complaints. [facility] Medical History Tubal ectopic Breast pain Breast cancer screening, high risk patient Skin rash Hypothyroidism Left leg pain DVT of leg (deep venous thrombosis) Ectopic Surgical History History of laparoscopic cholecystectomy (02/16/23) Family History Father Diabetes mellitus Mother Unknown family medical history Paternal Grandmother Diabetes mellitus Hypertension Stroke Social History Household Members: Spouse and Children Housing: House Do you presently have visiting nurse or other home services: No Alcohol intake: never Patient Tobacco Use Status: Former Tobacco user Tobacco use type: Cigarette Cigarette Packs Per Day: 1 Cigarettes Per Day: 1 Years Smoked: 15 e-Cigarette/Vaping Use: Never Used service: No Review of Systems Const Denies chills and Denies fever(s) Card Denies chest pain, Denies dyspnea and Denies dyspnea on exertion Resp Denies cough, Denies dyspnea and Denies dyspnea on exertion GI Denies hematochezia and Denies change in bowel habits Denies hematuria Musc Denies back pain and Denies limited range of motion Neuro Denies focal weakness and Denies convulsions Psych Denies depression and Denies mood swings Physical Exam Vital Signs: Last Vital Signs Pulse 92 03/01/23 10:32 BP 142/69 H 03/01/23 10:32 BMI result Body Mass Index 0.4 Const Other: Morbidly obese General: comfortable and no acute distress Eyes Other: Nonicteric sclerae GI Other: Obese, soft, incisions well healed, no guarding, no rebound, no tenderness Assessment & Plan Assessment & Plan (1) S/P laparoscopic cholecystectomy: Code(s): Z90.49 - Acquired absence of other specified parts of digestive tract Plan: She is doing very well postoperatively. All incisions are well healed. She de nies GI complaints. She was advised to avoid any lifting more than 20 lb for at least 3 more weeks. She can follow up on a p.r.n. basis. Coding Level of Care Code Global (21653) Diagnoses S/P laparoscopic cholecystectomy Z90.49
[2023-03-01 10:32] VITALS: BP 142/69; PULSE 92
== END 2023-03-01 10:53 | disposition home or self-care (01) ==
PROVIDERS: Visit Provider Surgery
DX: Z90.49 Acquired absence of other specified parts of digestive tract (principal)
CPT/HCPCS: 99024

== ENCOUNTER → 2023-03-01 09:55 | Outpatient (BNVA) | payer MEDICAID, SELFPAY | PROVIDERS: Visit Provider Surgery ==

== ENCOUNTER 2023-11-19 09:21 | Outpatient (REF) | payer MEDICAID, SELFPAY ==
[2023-11-19 10:55] LABS: MANUAL DIFF FLAG NO
[2023-11-19 11:08] LABS: Basophils Absolute Auto 0.1 X10*3/uL (0.0-0.2); Basophils Percent Auto 0.7 % (0-2); Eosinophils Absolute Auto 0.2 X10*3/uL (0.0-0.4); Eosinophils Percent Auto 2.8 % (0-4); Hematocrit 42.8 % (37.0-47.0); Hemoglobin 13.8 g/dl (12.0-16.0); Imm Gran Abs Auto 0.02 X10*3/uL (0.00-0.03); Imm Gran Pct Auto 0.3 % (0.0-0.4); Lymphocytes Percent Auto 39.8 % (20-40); Mean Corpuscular HGB Conc 32.2 g/dl (31.0-35.0); Mean Corpuscular Volume 80.8 fL (80.0-98.0); Mean Platelet Volume 10.3 fL (9.4-12.3); Monocytes Absolute Auto 0.5 X10*3/uL (0.1-1.2); Monocytes Percent Auto 6.8 % (2-11); Neutrophils Absolute Auto 3.7 x10*3/uL (2.0-8.3); Neutrophils Percent Auto 49.6 % (45-73); Platelet Count 266 X10*3/uL (160-400); Red Cell Distribution Width 14.3 % (11.0-16.0); White Blood Count 7.5 X10*3/uL (4.8-10.8)
[2023-11-19 11:44] LABS: Alanine Aminotransferase 19 U/L (0-31); Albumin Level 3.8 g/dL (3.5-5.0); Alkaline Phosphatase 125 U/L (39-117); Anion Gap 12 (12-20); Aspartate Amino Transferase 16 U/L (5-31); Bilirubin Total 0.3 mg/dL (0.0-1.0); Blood Urea Nitrogen 10 mg/dL (9-16); Calcium 9.2 mg/dL (8.4-10.2); Carbon Dioxide 26 mmol/L (22-29); Chloride 107 mmol/L (96-108); Cholesterol 208 mg/dL (<200); Estimated Glomerular Filt Rate > 60; Glucose Random 109 mg/dL (60-115); HDL Cholesterol 35 mg/dL (>40); LDL Cholesterol Calculated 128 mg/dL (<100); Potassium 3.9 mmol/L (3.3-5.1); Sodium 141 mmol/L (135-145); Total Protein 6.9 g/dL (6.5-8.0); Triglycerides 229 mg/dL (<150)
[2023-11-19 11:46] LABS: TSH reflex Free T4 0.38 uIU/mL (0.32-4.0)
[2023-11-19 12:10] LABS: Estimated Average Glucose 131 mg/dL; Hemoglobin A1c % 6.2 % (<6.0)
== END 2023-11-19 09:22 | disposition home or self-care (01) ==
LOC: HO.HHCL 09:21
PROVIDERS: Visit Provider Internal Medicine Geriatric Medicine
DX: E66.01 Morbid (severe) obesity due to excess calories (principal)
CPT/HCPCS: 36415; 80053; 80061; 83036; 84443; 85025

== ENCOUNTER 2024-01-20 13:01 | Outpatient (REF) | payer MEDICAID, SELFPAY ==
--- NOTE | ~2024-01-20 | XR_ITS ---
EXAMINATION: XR KNEE, LEFT CLINICAL INFORMATION: Atraumatic left knee pain COMPARISON: None available. TECHNIQUE: Four views of the left knee. FINDINGS: No evidence for acute fracture or dislocation. Mild to moderate narrowing in the medial joint space compartment. Small femoral condylar and tibial plateau spurring. No erosive process or osteochondral lesions. There is a small suprapatellar effusion. Small spurring changes of the patella are observed. XR/XR knee LT 3V IMPRESSION: 1. No acute process. Degenerative changes. 2. Small suprapatellar effusion. Electronically signed by: Edmundo Dewitt MD 01/20/2024 04:15 PM EDT
== END 2024-01-20 13:02 | disposition home or self-care (01) ==
LOC: HO.HHCX 13:01
PROVIDERS: Visit Provider Emergency Medicine
DX: M25.562 Pain in left knee (principal)
CPT/HCPCS: 73562

== ENCOUNTER 2024-02-08 13:00 | Outpatient (AMB) | payer MEDICAID, SELFPAY ==
--- NOTE | 2024-02-08 13:17 | MHC.OFFVIS ---
Intake Visit Reasons: SPECIALTY TRIMMER VV Intake Note: SPECIALTY TRIMMER. VV bilateral LE with pain. Pt states left is worse than the right side. Government Service Executive Required: Yes Government Service Executive Name: homa/ Bhaskar You [id number] Accompanied by: Self / Same As Patient Allergies No Known Allergies Allergy (Verified 02/08/24 13:19) HPI HPI SPECIALTY TRIMMER VV: Details: Elizabeth is a pleasant 53-year-old female patient presenting today on referral from her PCP for concerns of varicose veins, for over a year. Complaints include pain over varicosities, swelling of lower extremities, cramping, fatigue, and heaviness of the lower extremities. It has been affecting their daily activities including walking, standing, and working. It is noted more so in left leg; however, she states the right leg is affected as well. She states the left leg gets more swollen and painful. She is a former smoker and is a nondiabetic. Patient denies any previous venous surgery or injections. Patient denies any history of DVT/ PE. Her medical hx states DVT; however, she denies any hx of it and there is no information from her PCP about a DVT. Patient denies any history of phlebitis. Trial of compression includes - elevation, which helps slightly. She has not tried compression stockings. They now present for vascular evaluation regarding their varicose veins. [facility] Medical History Tubal ectopic Breast pain Breast cancer screening, high risk patient Skin rash Hypothyroidism Left leg pain DVT of leg (deep venous thrombosis) Ectopic Surgical History History of laparoscopic cholecystectomy (02/16/23) Family History Father Diabetes mellitus Mother Unknown family medical history Paternal Grandmother Diabetes mellitus Hypertension Stroke Social History Household Members: Spouse and Children Housing: House Do you presently have visiting nurse or other home services: No Alcohol intake: never Comment: counts done and correct Patient Tobacco Use Status: Former Tobacco user Tobacco use type: Cigarette Cigarette Packs Per Day: 1 Cigarettes Per Day: 1 Years Smoked: 15 e-Cigarette/Vaping Use: Never Used service: No Review of Systems Const Denies chills, Denies daytime sleepiness, Denies fatigue, Denies fever(s), Denies poor appetite, Denies snoring, Denies stops breathing during sleep, Denies weakness, Denies weight gain and Denies weight loss Eyes Denies loss of vision ENT Reports Normal hearing present, Denies dizziness and Denies hearing loss Card Denies chest pain, Denies irregular heart rhythm, Denies claudication, Denies leg edema, Denies lightheadedness, Denies palpitations, Denies dyspnea on exertion and Denies orthopnea Resp Denies cough, Denies excessive phlegm production, Denies dyspnea on exertion, Denies snoring and Denies wheezing GI Denies abdominal pain, Denies hematochezia, Denies change in bowel habits, Denies nausea and Denies vomiting Denies urinary frequency and Denies dysuria Musc Denies arthralgias, Denies muscle weakness, Denies numbness and Denies other Skin/Breast Denies nail changes and Denies rash Neuro Reports Normal hearing present, Denies Abnormal speech present, Denies dizziness, Denies loss of vision, Denies memory loss, Denies numbness, Denies Sensory deficit (Neuro) and Denies weakness Psych Denies depression and Denies memory loss Endo Denies fatigue and Denies palpitations Doron/Lymph Denies easy bruising Aller/Immun Denies wheezing Physical Exam Const General: healthy appearing and no acute distress Orientation/consciousness: patient oriented x3 HEENT Head: Yes normal to inspection Ears: hearing grossly normal bilaterally Mouth: Normal oral and palatal mucosa present Resp Effort & Inspection: normal respiratory effort and able to speak in complete sentences Auscultation: clear to auscultation bilaterally Cardio Jugular venous distension: no JVD Rate: regular rate Rhythm: regular rhythm Heart sounds: S1 normal heart sound present and S2 normal heart sound present Bruits: no abdominal aortic bruits, no carotid bruits, no femoral bruits and no renal bruits Peripheral pulses: Peripheral pulses 2+ throughout GI Inspection: Yes normal to inspection Palpation (GI): No Abdominal aortic bruit present Skin General skin exam: no rashes or lesions noted Wounds: no wounds Hair: normal Neuro General: patient oriented x3 Cranial nerves: Yes Normal hearing present Cognition (Neuro): normal cognition Speech: No Abnormal speech present Gait exam (Neuro): Normal gait present Motor exam (neuro): 5/5 motor strength present throughout Sensory Exam: No Sensory deficit (Neuro) Extrem Other: Spider veins and telangiectases noted on the medial and lateral aspects of both knees. Left lower extremity: 1+ peripheral edema noted. Right lower extremity: trace peripheral edema noted CEAP: C - 3 E - primary A - superficial P - reflux General: Yes normal to inspection, Yes full ROM, Yes capillary refill normal and Yes normal gait Assessment & Plan Assessment & Plan (1) Varicose veins of both lower extremities with inflammation: Code(s): I83.11 - Varicose veins of right lower extremity with inflammation; I83.12 - Varicose veins of left lower extremity with inflammation Category: Medical Plan: Elizabeth is presenting today for history of varicose veins on referral from her PCP. She states he has used some elevation with some relief but has not tried any compression stockings. She states at nighttime it gets worse. In short, the patient has evidence of venous insufficiency. I have discussed the pathophysiology with the patient. In addition I have provided informational material regarding venous disease to the patient. We have discussed conservative measures including compression, elevation, and exercise. I have also provided a handout regarding appropriate use of compression stockings and where to purchase good compression stockings as well. I have taken the liberty of ordering venous insufficiency testing with the patient. They will follow up with me after testing. The patient had an opportunity to ask questions regarding the treatment plan. All questions were answered. No major barriers to understanding were identified. The patient expressed understanding and agreement with the above treatment plan. The patient is aware they should contact our office by phone for worsening of the current condition or the appearance of new symptoms. Thank you for allowing me to participate in the vascular care of this patient. If you have any questions or concerns regarding the treatment for the above condition please do not hesitate to contact me. The office telephone contact is [phone]. This note is constructed using voice recognition software. While every effort has been made to ensure accuracy, racetrack steward errors may have been included. Thank you for allowing me to participate in the care of your patient. Yours sincerely, TRUNG Call Orders: Orders US venous duplex LE BI 1 Week I83.11 - Varicose veins of right lower extremity with inflammation, I83.12 - Varicose veins of left lower extremity with inflammation Coding Level of Care Code New Pt New Pt Level 4 (38672) Patient Type New Diagnoses Varicose veins of both lower extremities with inflammation I83.11; I83.12
== END 2024-02-08 13:45 | disposition home or self-care (01) ==
LOC: HO.HVS 13:00
PROVIDERS: PCP Internal Medicine Geriatric Medicine; Visit Provider Physician Assistant Surgical
DX: I83.11 Varicose veins of right lower extremity with inflammation (principal); I83.12 Varicose veins of left lower extremity with inflammation
CPT/HCPCS: 99204

== ENCOUNTER → 2024-02-08 13:00 | Outpatient (BNVA) | payer MEDICAID, SELFPAY | PROVIDERS: PCP Internal Medicine Geriatric Medicine; Visit Provider Physician Assistant Surgical | DX: I83.11 Varicose veins of right lower extremity with inflammation (principal); I83.12 Varicose veins of left lower extremity with inflammation; I83.813 Varicose veins of bilateral lower extremities with pain; Z87.891 Personal history of nicotine dependence | CPT/HCPCS: 99212 ==

== ENCOUNTER 2024-02-16 11:39 | Outpatient (REF) | payer MEDICAID, SELFPAY | END 2024-02-16 11:40 | disposition home or self-care (01) | LOC: HO.HOSX 11:39 | PROVIDERS: Visit Provider Physician Assistant | DX: M25.562 Pain in left knee (principal); M17.12 Unilateral primary osteoarthritis, left knee | CPT/HCPCS: 20610; 73560; 99212; J1010; J2003 ==

== ENCOUNTER 2024-02-16 13:43 | Outpatient (AMB) | payer MEDICAID, SELFPAY ==
--- NOTE | 2024-02-16 14:14 | A.OFFVIS_ITS ---
Vital Signs 02/16/24 14:30 Height 5 ft 6 in Weight 250 lb BMI 40.3 Intake Visit Reasons: NUMEROLOGIST -left knee pain Intake Note: Elizabeth a 53 year old female who presents today for a new patient evaluation of left knee pain. Patient reports her pain has been present for about a year that has been getting worse. States pain is worse in her calf. Her knee feels warm to the touch and mentions having a lump at the lateral aspect of knee. Her pain is constant and radiates down her leg. States feeling a pulse sensation in the posterior aspect of knee. Denies injury. Hx of varicose veins. Finds little relief with taking naproxen and no relief with ibuprofen. Plant Protection Superintendent Name: Georgette [id number] Allergies No Known Allergies Allergy (Verified 02/16/24 14:30) Medication List - Last Reconciled 02/16/24 by Bernarda Nuno PA-C albuterol sulfate 90 mcg/actuation 2 puffs inhalation Q4H PRN 30 days docusate sodium (Colace) 100 mg PO BID PRN fluticasone propionate 110 mcg/actuation (Flovent HFA) 1 puff inhalation BID ibuprofen 600 mg PO Q6H PRN ibuprofen 800 mg PO Q8H PRN 15 days levothyroxine 150 mcg PO QAM omeprazole 20 mg PO DAILY 90 days oxycodone 5 mg PO Q4H PRN HPI HPI NUMEROLOGIST -left knee pain: Details: 53-year-old female who presents to the office today for an evaluation of left knee pain for about a year. She states she has constant pain in her knee that radiates down her leg. She also reports a lump at the lateral aspect of her knee and her knee is warm to touch. Her pain is aggravated with walking and stairs use. She experiences a pulse sensation at the posterior aspect of her knee. She has not had any treatment in the past. She finds mild relief with naproxen and no relief with ibuprofen. She has a history of varicose veins. [facility] Medical History Tubal ectopic Breast pain Breast cancer screening, high risk patient Skin rash Hypothyroidism Left leg pain DVT of leg (deep venous thrombosis) Ectopic Surgical History History of laparoscopic cholecystectomy (02/16/23) Family History Father Diabetes mellitus Mother Unknown family medical history Paternal Grandmother Diabetes mellitus Hypertension Stroke Social History (Updated 02/16/24 @ 14:19 by Zuri Castro [facility]) Household Members: Spouse and Children Housing: House Do you presently have visiting nurse or other home services: No Alcohol intake: never Comment: counts done and correct Patient Tobacco Use Status: Former Tobacco user Tobacco use type: Cigarette Cigarette Packs Per Day: 1 Cigarettes Per Day: 1 Years Smoked: 15 e-Cigarette/Vaping Use: Never Used service: No 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 Review of Systems Const All systems reviewed & are unremarkable except as noted in HPI and below Physical Exam Vital Signs: BMI result Body Mass Index 40.3 Const General: cooperative, healthy appearing, comfortable, no acute distress, well developed and alert Orientation/consciousness: patient oriented x3 HEENT Head: Yes normal to inspection, Yes normocephalic and Yes atraumatic Eyes General: appearance normal, both eyes and all related structures Resp Effort & Inspection: normal respiratory effort and able to speak in complete sentences Cardio Rate: regular rate Peripheral pulses: Peripheral pulses 2+ throughout GI Palpation (GI): Soft to palpation Skin Lesions: no lesions Rashes: no rashes Neuro General: patient oriented x3 Extrem Other: Left knee: Skin intact, no erythema or joint effusion. Tenderness along the medial and lateral joint line. Full ROM with crepitus. Negative Cristi?s. No ligamentous laxity. NVI. Office Procedures AMB Joint Injection/Aspiration Joint Injection/Aspiration Primary Site: left knee Prep: site was prepped using aseptic technique, ethochloride spray was applied and injection warnings given Injected: 80 mg of, DepoMedrol, with 8 mL of, 1% plain lidocaine and in the joint Approach Used: anterolateral Procedure: The patient tolerated the procedure well and there was some relief with the local anesthesia Coding 52390 - Glenohumeral/Tronchanteric Bursa/Intraarticular Procedure code (CPT) selection complete Results Reviewed Results Reviewed: Xrays were obtained in the office today and personally reviewed by me of the left knee show PF oa Assessment & Plan Assessment & Plan (1) Osteoarthritis of left knee: Code(s): M17.12 - Unilateral primary osteoarthritis, left knee Category: Medical Plan We discussed options today, which include steroid injection. The patient did consent to move forward with the left knee injection, which was tolerated well. I recommended rest, ice, and elevation and OTC anti-inflammatories as needed for discomfort. She was also given a prescription of Celebrex to her pharmacy. If symptoms persist or worsens over the next 6-8 weeks, patient will contact the office, otherwise follow-up as needed. Orders: Orders XR knee LT 1V Today M25.562 - Pain in left knee PT Evaluation and Treatment Today M17.12 - Unilateral primary osteoarthritis, left knee Medications: New celecoxib (Celebrex) 200 mg PO BID 60 caps 3RF 30 days Discontinued oxycodone Partial Fill upon patient request. Discontinued Reason: No Longer Medically Relevant 5 mg PO Q4H PRN 24 tabs 0RF pain (scale score 7-10) Patient Instructions: Scribed for Bernarda Nuno PA-C, by Mu Bolanos medical writer, on 02/16/2024 at 2:15 PM EST.? I, Bernarda Nuno PA-C, have personally reviewed and agree with the information entered by the scribe. Coding Level of Care Code New Pt Level 3 (46486) Complex EM visit Add On G2211 Diagnoses Osteoarthritis of left knee M17.12 CPT Codes Coding - Joint 7: 24541 - Glenohumeral/Tronchanteric Bursa/Intraarticular ([id number])
[2024-02-16 14:30] VITALS: BMI 40.3
== END 2024-02-16 15:06 | disposition home or self-care (01) ==
LOC: HO.HOS 13:44
PROVIDERS: PCP Internal Medicine Geriatric Medicine; Visit Provider Physician Assistant
DX: M17.12 Unilateral primary osteoarthritis, left knee (principal)
CPT/HCPCS: 20610; 99203

== ENCOUNTER 2024-02-25 10:01 | Outpatient (REF) | payer MEDICAID, SELFPAY ==
--- NOTE | ~2024-02-25 | US_ITS ---
EXAMINATION: US LOWER EXTREMITY VENOUS (REFLUX EXAM), BILATERAL CLINICAL INDICATION: Varicose veins of right lower extremity with inflammation COMPARISON: Venous duplex ultrasound of the left lower extremity dated 06/12/2020 TECHNIQUE: Color flow triplex imaging and compression Doppler was performed to evaluate both the deep and the superficial systems bilaterally. To evaluate the superficial system, the examination was performed in the upright position. Color-flow Doppler ultrasound and compression ultrasound were utilized. In addition, maneuvers were utilized to demonstrate reflux. FINDINGS: 1. DEEP VENOUS ULTRASOUND OF THE RIGHT LOWER EXTREMITY: Common Femoral Vein: Compressible, normal respiratory variation and augmented flow. Femoral Vein: Compressible, normal color flow and augmentation. Popliteal Vein: Compressible, normal augmentation. Deep Reflux: There is no evidence of reflux in the deep system in either the common femoral vein, superficial femoral or the popliteal vein. There is no evidence of a Girard's cyst. 2. SUPERFICIAL ULTRASOUND WITH DOPPLER OF RIGHT LOWER EXTREMITY: GREAT SAPHENOUS VEIN: Saphenofemoral Junction: 0.4 cm; Reflux: 0 ms Proximal Thigh: 0.4 cm; Reflux: 0 ms Mid Thigh: 0.2 cm; Reflux: 0 ms Above Knee: 0.2 cm; Reflux: 0 ms At Knee: 0.2 cm; Reflux: 0 ms Below Knee: 0.1 cm; Reflux: 0 ms Mid Calf: 0.1 cm; Reflux: 0 ms Ankle: 0.1 cm; Reflux: 0 ms DUPLICATED LATERAL GREAT SAPHENOUS VEIN: Saphenofemoral Junction: 0.2 cm; Reflux: 0 ms Mid Thigh: 0.2 cm; Reflux: 0 ms SMALL SAPHENOUS VEIN: Saphenopopliteal Junction: 0.1 cm; Reflux: 0 ms Proximal: 0.1 cm; Reflux: 0 ms Distal: 0.2 cm; Reflux: 0 ms PERFORATORS: Location: Proximal calf Size: 0.2; Reflux: 0 ms Location: Mid thigh Size: 0.2; Reflux: 0 ms Location: Mid calf Size: 0.2; Reflux: 0 ms VARICOSITIES: Location: Proximal thigh Size: 0.3; Reflux: 0 ms 3. DEEP VENOUS ULTRASOUND OF THE LEFT LOWER EXTREMITY: Common Femoral Vein: Compressible, normal respiratory variation and augmented flow. Femoral Vein: Compressible, normal color flow and augmentation. Popliteal Vein: Compressible, normal augmentation. Deep Reflux: There is no evidence of reflux in the deep system in either the common femoral vein, superficial femoral or the popliteal vein. There is no evidence of a Girard's cyst. 4. SUPERFICIAL ULTRASOUND WITH DOPPLER OF LEFT LOWER EXTREMITY: GREAT SAPHENOUS VEIN: Saphenofemoral Junction: 0.6 cm; Reflux: 0 ms Proximal Thigh: 0.5 cm; Reflux: 0 ms Mid Thigh: 0.3 cm; Reflux: 0 ms Above Knee: 0.2 cm; Reflux: 0 ms At Knee: 0.2 cm; Reflux: 0 ms Below Knee: 0.2 cm; Reflux: 0 ms Mid Calf: 0.2 cm; Reflux: 0 ms Ankle: 0.2 cm; Reflux: 0 ms DUPLICATED LATERAL GREAT SAPHENOUS VEIN: Saphenofemoral Junction: 0.2 cm; Reflux: 0 ms Mid Thigh: 0.2 cm; Reflux: 0 ms SMALL SAPHENOUS VEIN: Saphenopopliteal Junction: 0.1 cm; Reflux: 0 ms Proximal: 0.1 cm; Reflux: 0 ms Distal: 0.2 cm; Reflux: 0 ms PERFORATORS: Location: Mid thigh Size: 0.2; Reflux: 0 ms Location: Proximal calf Size: 0.2; Reflux: 0 ms Location: Mid calf Size: 0.2; Reflux: 0 ms VARICOSITIES: Location: None Imaged Size: NA; Reflux: 0 ms US/US venous duplex LE BI IMPRESSION: 1. No evidence of deep venous thrombosis or deep venous reflux. 2. No evidence of superficial venous reflux. 3. A few perforators visualized bilaterally, which do not demonstrate reflux. 4. One 3 mm varicose vein visualized in the right proximal thigh, without reflux. Electronically signed by: Honey Hernandez MD 03/22/2024 05:04 PM TIA
== END 2024-02-25 10:02 | disposition home or self-care (01) ==
LOC: HO.US 10:01
PROVIDERS: PCP Internal Medicine Geriatric Medicine; Visit Provider Physician Assistant Surgical
DX: I83.11 Varicose veins of right lower extremity with inflammation (principal); I83.12 Varicose veins of left lower extremity with inflammation
CPT/HCPCS: 93970

== ENCOUNTER → 2024-03-31 09:59 | Outpatient (AMB) | payer MEDICAID, SELFPAY ==
--- NOTE | 2024-03-31 09:59 | A.OFFVIS_ITS ---
Intake Visit Reasons: follow up s/p US 02/25/24 Intake Note: Patient presents for US follow up performed on 02/25/24. Patient states her left leg hurts. Accompanied by: Significant Other Allergies No Known Allergies Allergy (Verified 03/31/24 10:01) HPI HPI follow up s/p US 02/25/24: Details: Elizabeth is presenting today for a follow up to a US performed on 02/24. She is Emir[place] speaking only and we utilized Araceli as an batch and furnace operator. She continues to endorse L>R lower extremity and swelling. It has not worsened. She has no other concerns this morning. [facility] Medical History Tubal ectopic Breast pain Breast cancer screening, high risk patient Skin rash Hypothyroidism Left leg pain DVT of leg (deep venous thrombosis) Ectopic Surgical History History of laparoscopic cholecystectomy (02/16/23) Family History Father Diabetes mellitus Mother Unknown family medical history Paternal Grandmother Diabetes mellitus Hypertension Stroke Social History Household Members: Spouse and Children Housing: House Do you presently have visiting nurse or other home services: No Alcohol intake: never Comment: counts done and correct Patient Tobacco Use Status: Former Tobacco user Tobacco use type: Cigarette Cigarette Packs Per Day: 1 Cigarettes Per Day: 1 Years Smoked: 15 e-Cigarette/Vaping Use: Never Used service: No 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 Review of Systems Const Reports as per HPI and Denies weakness ENT Reports Normal hearing present and Denies dizziness Card Reports as per HPI, Denies chest pain, Denies chest pain at rest, Denies chest pain with activity, Denies dyspnea and Denies dyspnea on exertion Resp Reports as per HPI, Denies cough, Denies dyspnea and Denies dyspnea on exertion GI Reports as per HPI, Denies abdominal pain, Denies nausea and Denies vomiting Musc Denies numbness Skin/Breast Reports as per HPI, Denies erythema and Denies wounds Neuro Reports Normal hearing present, Denies dizziness, Denies numbness, Denies Sensory deficit (Neuro) and Denies weakness Psych Reports no additional complaints Endo Reports no additional complaints Physical Exam Const General: healthy appearing and no acute distress Orientation/consciousness: patient oriented x3 HEENT Head: Yes normal to inspection Ears: hearing grossly normal bilaterally Mouth: Normal oral and palatal mucosa present Resp Effort & Inspection: normal respiratory effort and able to speak in complete sentences Auscultation: clear to auscultation bilaterally Cardio Jugular venous distension: no JVD Rate: regular rate Rhythm: regular rhythm Heart sounds: S1 normal heart sound present and S2 normal heart sound present Bruits: no abdominal aortic bruits, no carotid bruits, no femoral bruits and no renal bruits Peripheral pulses: Peripheral pulses 2+ throughout GI Inspection: Yes normal to inspection Palpation (GI): No Abdominal aortic bruit present Skin General skin exam: no rashes or lesions noted Wounds: no wounds Hair: normal Neuro General: patient oriented x3 Cranial nerves: Yes Normal hearing present Cognition (Neuro): normal cognition Gait exam (Neuro): Normal gait present Motor exam (neuro): 5/5 motor strength present throughout Sensory Exam: No Sensory deficit (Neuro) Extrem Other: Spider veins and telangiectases noted on the medial and lateral aspects of both knees. Left lower extremity: 1+ peripheral edema noted. Right lower extremity: trace peripheral edema noted General: Yes normal to inspection, Yes full ROM, Yes capillary refill normal and Yes normal gait Results Reviewed Results Reviewed: Brief summary of venous insufficiency testing is as follows: right great saphenous vein: negative right small saphenous vein: negative right accessory vein: none present left great saphenous vein: negative left small saphenous vein: negative left accessory vein: none present Please note there is no evidence of any venous aneurysms or significant tortuosity Assessment & Plan Assessment & Plan (1) Varicose veins of both lower extremities with inflammation: Code(s): I83.11 - Varicose veins of right lower extremity with inflammation; I83.12 - Varicose veins of left lower extremity with inflammation Category: Medical Plan: Elizabeth is presenting today for a follow up to US, performed on 02/24. The US was negative for any venous insufficiency. She continues to endorse swelling and pain, worse on the left. We discussed that there are no vascular explanations for the swelling and pain and she will need to reach back out to her PCP for further follow up/evaluation. She did mention that she has not been able to obtain Celebrex, which had been prescribed to her last month. We discussed that she will need to reach out to the provider that prescribed it. We discussed to continue with elevation, compression stockings, and physical activity/walking. We were able to provide her with compression stockings. We discussed to wear them daily but not at night. If there are any questions or concerns, please do not hesitate to reach out to us. We will follow up only as needed. Coding Level of Care Code Est Pt Level 4 (77338) Diagnoses Varicose veins of both lower extremities with inflammation I83.11; I83.12 Comment Review of US
== END ==
PROVIDERS: PCP Internal Medicine Geriatric Medicine; Visit Provider Physician Assistant Surgical
DX: I83.11 Varicose veins of right lower extremity with inflammation (principal); I83.12 Varicose veins of left lower extremity with inflammation
CPT/HCPCS: 99214

== ENCOUNTER → 2024-03-31 09:59 | Outpatient (BNVA) | payer MEDICAID, SELFPAY | PROVIDERS: PCP Internal Medicine Geriatric Medicine; Visit Provider Physician Assistant Surgical | DX: I83.11 Varicose veins of right lower extremity with inflammation (principal); I83.12 Varicose veins of left lower extremity with inflammation | CPT/HCPCS: 99212 ==

== ENCOUNTER 2024-06-28 08:04 | Outpatient (AMB) | payer MEDICAID, SELFPAY ==
--- NOTE | 2024-06-28 08:09 | MHC.OFFVIS ---
Vital Signs 06/28/24 08:12 Height 5 ft 6 in Weight 269 lb BMI 43.4 BP 146/70 H Blood Pressure Location Lt brachial Position Sitting Pulse 100 Intake Visit Reasons: EIC~ Rt ant chest Intake Note: Patient referred by Dr. Jorge Tomas for evaluation of cyst on Rt ant chest. Present for ? Patient c/o: denies any pain, only itchy sensation on her chest cyst Belt Loop Maker Required: Yes Belt Loop Maker Name: Christina Myers/ KIMBERLY Allergies No Known Allergies Allergy (Verified 03/31/24 10:01) HPI Comments Details: Patient presents with a symptomatic cyst involving anterior upper chest. It is increasing in size and become more symptomatic. She would like to have removed. She has no such lesions elsewhere. Chart was reviewed and patient evaluated [facility] Medical History Tubal ectopic Breast pain Breast cancer screening, high risk patient Skin rash Hypothyroidism Left leg pain DVT of leg (deep venous thrombosis) Ectopic Surgical History History of laparoscopic cholecystectomy (02/16/23) Family History Father Diabetes mellitus Mother Unknown family medical history Paternal Grandmother Diabetes mellitus Hypertension Stroke Social History Household Members: Spouse and Children Housing: House Do you presently have visiting nurse or other home services: No Alcohol intake: never Comment: counts done and correct Patient Tobacco Use Status: Former Tobacco user Tobacco use type: Cigarette Cigarette Packs Per Day: 1 Cigarettes Per Day: 1 Years Smoked: 15 e-Cigarette/Vaping Use: Never Used service: No 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 Physical Exam Vital Signs: Last Vital Signs Pulse 100 06/28/24 08:12 BP 146/70 H 06/28/24 08:12 BMI result Body Mass Index 43.4 Chest Other: Patient was a roughly 3 x 2 cm upper right chest sebaceous cyst with punctum. Assessment & Plan Assessment & Plan (1) Epidermal inclusion cyst: Code(s): L72.0 - Epidermal cyst Category: Surgical Plan Patient was like to have this excised but is unavailable to have this done today because of other obligations. She will reschedule and cyst excision will be undertaken in the office. All questions answered. Coding Level of Care Code New Pt Level 4 (67805) Diagnoses Epidermal inclusion cyst L72.0
--- OUTSIDE RECORDS SUMMARY | 2024-06-28 08:10 | XMS_ITS | Encounter Summary ---
Author Organization [facility] Address [address] 7t [place] [address] Care Team Providers Care Behavioral Consultant Name Role Phone Name, Jorge BEASLEY Primary Care Provider Encounter Details Date Type Department Care Team (Latest Contact Info) Description 06/14/2024 Travel Social History Tobacco Use Types Packs/Day Years Used Date Smoking Tobacco: Every Day Cigarettes Last attempted to quit: 04/13/2022 Passive Smoke Exposure: Past Smokeless Tobacco: Former Alcohol Use Standard Drinks/Week Comments Never 0 (1 standard drink = 0.6 oz pur e alcohol) Depression Answer Date Recorded Patient Health Questionnaire-9 Score 15 06/14/2024 Patient Health Questionnaire-9 Score 15 06/14/2024 Last PHQ-9: Questionnaire Data Not on file 0 06/14/2024 Housing Stability Answer Date Recorded What is your housing situation today? I have porter williamson 11/02/[address] you li ve. Do you have problems with any of the following? None of the above 11/02/2023 Food Insecurity Answer Date Recorded Within the past 12 months, y ou worried that your food would run out before you got money to buy more: Never True 11/02/2023 Within the past 12 months,th e food you bought just didn't last and you didn't have enough money to get more: Never True Transportation Answer Date Recorded In the past 12 months, has l ack of transportation kept you from medical appts, meetings, work or from getting things needed for daily living? No 11/02/2023 Utilities Answer Date Recorded In the past 12 months, has t he electric, gas, oil or water company threatened to shut off services in your home? No 11/02/2023 Depression Answer Date Recorded Patient Health Questionnaire-2 Score 2 06/14/2024 Internet Access Answer Date Recorded Internet Access Q1 Yes 12/13/2023 Internet Access Q2 Not on file 12/13/2023 Comments Unknown Sex and Gender Information Value Date Recorded Sex Assigned at Female 02/09/2022 10:29 AM EDT Legal Sex Female 10:29 AM EDT Gender Identity Female 02/09/2022 10:29 AM EDT Sexual Orientation Straight 02/09/2022 10 :29 AM EDT documented as of this encounter Plan of Treatment Upcoming Encounters Date Type Department Care Team (Late st Contact Info) Description 07/04/2024 2:00 PM EDT Nutrition [facility] DIABETES/NUTRITION [address] [place] [address] Alexa Louis, KAYLA [address] [place] [address] 07/18/2024 3:30 PM EDT Medication Management [facility] MEDICINE [address] [place] [address] Kina Soria, PharmD [address] [place] [address] documented as of this encounter Visit Diagnoses Not on filedocumented in this encounter Additional Health Concerns Assessment Noted Time PHQ-9 Depression Total Score: 15 025 3:56 PM EST documented as of this encounter Care Teams Behavioral Consultant Relationship Specialty Start Date End Date Name, MD Jorge [address] [place] [id number] PCP - General Internal Medicine 03/10/22 documented as of this encounter
--- OUTSIDE RECORDS SUMMARY | 2024-06-28 08:10 | XMS_ITS | Encounter Summary ---
Author Organization [facility] Address [address] [facility] 7t [place] [address] Care Team Providers Care Glue Line Operator Name Role Phone Name, Jorge BEASLEY Primary Care Provider [phone] Encounter Details Date Type Department Care Team ([facility] st Contact Info) Description 06/23/2024 Population Health Risk Score [facility] (C3) Department [address] [place] [phone] Provider, Population Health Generic Social History Tobacco Use Types Packs/Day Years [...] Info) Description 07/04/2024 2:00 PM EDT Nutrition [facility] DIABETES/NUTRITION [address] [place] [address] Alxea Louis, KAYLA [address] [place] [address] 07/18/2024 3:30 PM EDT Medication Management [facility] MEDICINE [address] [place] [address] Kina Soria, PharmD [address] [place] [address] documented as of this encounter Visit Diagnoses Not on filedocumented in this encounter Additional Health Concerns Assessment Noted Time PHQ-9 Depression Total Score: 15 025 3:56 PM EST documented as of this encounter Care Teams Glue Line Operator Relationship Specialty Start Date End Date Name, MD Jorge [address] [place] [address] PCP - General Internal Medicine 03/10/22 documented as of this encounter
--- OUTSIDE RECORDS SUMMARY | 2024-06-28 08:10 | XMS_ITS | Clinical Summary ---
Author Organization [facility] Address [address] [place] [address] 7t [place] [address] Care Team Providers Care Water Softener Service Supervisor Name Role Phone Name, Jorge BEASLEY Primary Care Provider [phone] Allergies No known active allergies Medications * This document contains information received from the source organization and may not represent a complete record from that organization. levothyroxine (Synthroid, Levoxyl) 150 MCG tablet TAKE 1 TABLET BY MOUTH EVERY DAY 90 tablet 3 4 Active omeprazole (PriLOSEC) [address] capsule TAKE 1 CAPSULE BY MOUTH EVERY DAY IN THE MORNING DO NOT BREAK, CRUSH, DISSOLVE OR CHEW 90 capsule 3 4 Active albuterol 108 (90 Base) MCG/ACT inhaler Inhale 1 puff every 6 (six) hours if needed for wheezing. 18 g 11 4 Active fluticasone furoate (Arnuity Ellipta) 100 MCG/ACT inhaler Inhale 1 puff Once per day. Rinse mouth with water after use to reduce aftertaste and incidence of candidiasis. Do not swallow. 1 each 11 4 11/09/19 25 Active nicotine (Nicoderm CQ) 14 MG/24HR patch Place 1 patch on the skin 1 (one) time each day at the same time for 14 days. 14 patch 1 4 Active nicotine (Nicoderm CQ) 21 MG/24HR patch Place 1 patch on the skin 1 (one) time each day at the same time. 42 patch 1 4 Active nicotine (Nicoderm CQ) 7 MG/24HR patch Place 1 patch on the skin 1 (one) time each day at the same time. 14 patch 1 4 Active nicotine polacrilex (Commit) 4 MG lozenge Dissolve 1 lozenge (4 mg) in the mouth every 2 (two) hours if needed for smoking cessation. 100 lozenge 4 Active Spacer/Aero-Hol ding Chambers (OptiChamber Nikole) misc 1 each every 4 (four) hours if needed (asthma). 1 each 4 Active lidocaine (Lidoderm) 5 % patch Apply 1 patch topically Once per day. Remove & discard patch within 12 hours or as directed by MD. May use 2 patches at a time. 60 patch 2 4 01/20/20 25 Active acetaminophen (Tylenol) 500 MG tablet Take 2 tablets (1,000 mg) by mouth every 6 (six) hours if needed for moderate pain or fever for up to 25 doses. 30 tablet 4 Active dextran 70-hypromellose (artificial tears) 0.1-0.3 % ophthalmic solutionIndicat ions:Dry eyes, bilateral Administer 1 drop into both eyes if needed in the morning, at noon, and at bedtime for dry eyes. 15 mL 6 4 02/21/20 25 Active latanoprost (Xalatan) 0.005 % ophthalmic solution Administer 1 drop into both eyes at bedtime. 4 Active Artificial Tear Solution (GenTeal Tears) 0.1-0.2-0.3 % solution Administer 1 inch into both eyes at bedtime. 4 Active Tirzepatide-Meng ght Management (Zepbound) 2.5 MG/0.5ML solution auto-injectorIn dications:Morbi d obesity (CMS/HCC) Inject 0.5 mL (2.5 mg) under the skin 1 (one) time per week. 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 Date Type Department Care Team Description 06/23/2024 Population Health Risk Score [facility] (C3) Department [address] [phone] Provider, Population Health Generic 06/15/2024 Travel 06/14/2024 3:30 PM EST Office Visit [facility] [address] [place] [address] NameJorge MD Morbid obesity (CMS/HCC) (Primary Dx); Tobacco use disorder; Grief; Depression, unspecified depression type; Skin cyst 06/14/2024 Travel 06/13/2024 Telephone [facility] [address] [place] [address] NameJorge MD telephone call 05/23/2024 2:30 PM EST Office Visit [facility] [address] [place], [place] [phone] Deya Owens, OD Ocular hypertension, bilateral (Primary Dx); Aphakia of left eye 05/23/2024 Travel 04/13/2024 Telephone [facility] [address] [place] [address] ReddyElizabeth garcia [place] lina recalls 04/04/2024 10:45 AM EST Office Visit [facility] [address] [place], [place] [phone] VitalyAmauryn, OD Presbyopia (Primary Dx) from Last 3 Months Immunizations Name Administration Dates Next Due TD (adult), 2 Lf tetanus tox oid, preservative free, adsorbed 11/11/2012 Td (adult), 5 Lf tetanus tox oid, preservative free, adsorbed 11/11/2012 Tdap 11/10/2012 Social History Tobacco Use Types Packs/Day Years Used Date Smoking Tobacco: Every Day Cigarettes Last attempted to quit: 04/13/2022 Passive Smoke Exposure: Past Smokeless Tobacco: Former Tobacco Cessation:Ready to Q uit: Not Asked; Counseling Given: Not Answered Alcohol Use Standard Drinks/Week Comments Never 0 [...] Orientation Straight 02/09/2022 10 :29 AM EDT Last Filed Vital Signs Vital Sign Reading Time Taken Comments Blood Pressure 101/72 06/14/2024 3:41 PM EST Pulse 99 06/14/2024 3:41 PM EST Temperature 36.3 ??C (97.4 ??F) 06/14/2024 3:41 PM ES T Respiratory Rate 21 06/14/2024 3:41 PM EST Oxygen Saturation 98% 06/14/2024 3:41 PM EST Inhaled Oxygen Concentration - - Weight 123 kg (271 lb 12.8 oz) 06/14/2024 3:41 P M EST Height 160 cm (5' 3 ) 06/14/2024 3:41 PM EST Body Mass Index 48.15 06/14/2024 3:41 PM EST Plan of Treatment Upcoming Encounters Date Type Department Care Team (Late st Contact Info) Description 07/04/2024 2:00 PM EDT Nutrition [facility] DIABETES/NUTRITION [address] [place] [address] Alexa Louis, RD [address] [place] [address] 07/18/2024 3:30 PM EDT Medication Management [facility] [address] [place] [address] IvaniaKina, PharmD [address] [place] [address] Health Maintenance Due Date Last Done Comments CT Colonography 1972 Colonoscopy 1972 Colorectal Cancer Screening 1972 FIT DNA/Cologuard 1972 FIT 1972 FOBT 1972 HIV Screening 1972 Sigmoidoscopy 1972 Alcohol/Substance Use Screening 1984 Family Planning (PISQ) 10/25/1987 Hepatitis C Screening 1990 Hepatitis B Vaccines (1 of 3 - 19+ 3-dose series) 10/25/1991 Pneumococcal Vaccine: 50+ Years (1 of 2 - PCV) 10/25/1991 Pap Smear 1993 Cervical Cancer Screening 2002 HPV/Cotest 2002 Mammogram 2012 Zoster Vaccines (1 of 2) 2022 DTaP/Tdap/Td Vaccines (4 - T d or Tdap) 11/11/2022 11/11/2012, 11/11/2012, 11/10/2012 COVID-19 Vaccine ( - 2023-2 5 season) 2023 Influenza Vaccine (#1) 2023 Diabetes: Hemoglobin A1C 11/18/2024 11/19/2023 Depression Monitoring (PHQ-9) 12/15/2024, 06/14/2024 Depression Screening 06/14/2025 06/14/2024, 06/14/2024 SDOH Screening 06/14/2025 06/14/2024 Tobacco Screening 06/14/2025 06/14/2024 Lipid Panel 11/18/2028 11/19/2023 RSV Patients and Patients Aged 60 years or older (1 - 1-dose 75+ series) 10/25/2047 HIB Vaccines Aged Out No longer eligi ble based on patient's age to complete this topic HPV Vaccines Aged Out No longer eligi ble based on patient's age to complete this topic Hepatitis A Vaccines Aged Out No long er eligible based on patient's age to complete this topic IPV Vaccines Aged Out No longer eligi ble based on patient's age to complete this topic Meningococcal Vaccine Aged Out No kathryn sarah eligible based on patient's age to complete this topic RSV under 20 months Aged Out No longe r eligible based on patient's age to complete this topic Rotavirus Vaccines Aged Out No longer eligible based on patient's age to complete this topic Procedures Procedure Name Priority Date/Time Associated Diagnosis Comments HEMOGLOBIN A1C Routine 11/19/2023 9:30 AM EDT Morbid obesity (CMS/HCC) LIPID PANEL, STANDARD Routine 11/19/2023 9:30 AM EDT Morbid obesity (CMS/HCC) from Last 3 Months or Most Recently Relevant to Health Maintenance Results * (ABNORMAL) Hemoglobin A1c (11/19/2023 9:30 AM EDT) Hemoglobin A1c 6.2(H) <6.0 % [facility] Comment:Hemoglobin A1C Refer ence Range Adults: 4.8 - 6.0 % Non diabetic: < 6.0 % Goal: < 7.0 %Additional Action Suggested: > 8.0 %Note: Hemoglobin A1c results are invalid for patients with abnormal amounts of HbF. Blood transfusions may impact the HbA1c concentration in the patient sample. Estimated Average Glucose 131 mg/dL [facility] Comment:eAG = Estimated ave rage glucose which is %A1C expressed asaverage glucose, using the formula of the G4F-[id number] Glucose study (ADAG), Diabetes Care, Vol.31,#8,Nov. 2007 Blood Venous blood specimen / Unknown 11/19/2023 9:30 AM EDT 11/19/2023 10:51 AM EDT Jorge Tomas MD LAB BLOOD ORDERABLES Final Resul t Performing Organization Address [facility]/ZIP Co de Phone Number [facility] [address] [place] [address] [phone] * (ABNORMAL) Lipid Panel, Standard (11/19/2023 9:30 AM EDT) Triglycerides 229(H) <150 mg/dL [facility] Comment:Desirable Triglyceri de: less than 150 mg/dLBorderline High Triglyceride 150-199 mg/dLHigh Triglyceride: 200-499 mg/dLVery High Triglyceride: greater than or equal to 5OO mg/dL Cholesterol 208(H) <200 mg/dL [facility] Comment:Desirable Cholestero l: less than 200 mg/dLBorderline High Cholesterol: 200-239 mg/dLHigh Cholesterol: greater than 239 mg/dL LDL Cholesterol Calculated 128(H) <100 mg/dL [facility] Comment:Desirable LDL: less than 100 mg/dLNear Optimal/Above Optimal LDL: 110- 129 mg/dLBorderline High LDL: 130-159 mg/dLHigh LDL: 160-189 mg/dLVery High LDL: greater than or equal to 190 mg/dL HDL Cholesterol 35(L) >40 mg/dL [facility] Comment:Desirable HDL: great er than 40 mg/dL Note: This HDL assay may give artificially low results in patients with liver disease. Blood Venous blood specimen / Unknown 11/19/2023 9:30 AM EDT 11/19/2023 10:51 AM EDT Jorge Tomas MD LAB BLOOD ORDERABLES Final Resul t Performing Organization Address [facility]/ZIP Co de Phone Number [facility] [address] [place] [address] [phone] from Last 3 Months or Most Recently Relevant to Health Maintenance Insurance [employer] [facility] [employer] Care Teams Water Softener Service Supervisor Relationship Specialty Start Date End Date Name, MD Jorge [address] [place] [id number] PCP - General Internal Medicine 03/10/22
--- OUTSIDE RECORDS SUMMARY | 2024-06-28 08:10 | XMS_ITS | Clinical Summary ---
Author Organization [facility] Address [address] [place] [address] Care Team Providers Care Supervisor Kosher Dietary Service Name Role Phone Unavailable Primary Care Provider Unavailabl e Social History Tobacco Use Types Packs/Day Years Used Date Smoking Tobacco: Never Assessed Comments Unknown Sex and Gender Information Value Date Recorded Sex Assigned at Not on file Legal Sex Female 4:50 AM EST Gender Identity Not on file Sexual Orientation Not on file Plan of Treatment Health Maintenance Due Date Last Done Comments Breast Cancer Screening 1972 DTaP,Tdap,and Td Vaccines (1 - Tdap) 10/25/1991 Hepatitis B Vaccines (1 of 3 - 19+ 3-dose series) 10/25/1991 Cervical Cancer Screening: P ap Smear 1993 Colorectal Cancer Screening: Colonoscopy 03/15/2022 Depression Screening 03/15/2022 HIV Screening 03/15/2022 Hepatitis C Screening 03/15/2022 Social Influencers of Health Screening 03/15/2022 Pneumococcal Vaccine: 50+ Ye ars (1 of 1 - PCV) 2022 Zoster Vaccines (1 of 2) 2022 COVID-19 Vaccine ( - 2023-2 5 season) 2023 Influenza Vaccine (#1) 2023 HIB Vaccines Aged Out No longer eligi [...] on patient's age to complete this topic MMR Vaccines Aged Out No longer eligi ble based on patient's age to complete this topic Meningococcal ACWY Vaccine Aged Out N o longer eligible based on patient's age to complete this topic Meningococcal B Vacine Aged Out No lo nger eligible based on patient's age to complete this topic Pneumococcal Vaccine: Pediat rics (0 to 5 Years) and At-Risk Patients (6 to 64 Years) Aged Out No longer eligible b ased on patient's age to complete this topic RSV Immunization Patients Un frank 20 months Aged Out No longer eligible b ased on patient's age to complete this topic Varicella Vaccines Aged Out No longer eligible based on patient's age to complete this topic
--- OUTSIDE RECORDS SUMMARY | 2024-06-28 08:10 | XMS_ITS | Encounter Summary ---
Author Organization [facility] Address [address] [facility] 7t [place] [address] Care Team Providers Care Levi Maker Name Role Phone Name, Jorge BEASLEY Primary Care Provider [phone] Encounter Details Date Type Department Care Team (Latest Contact Info) Description 06/15/2024 Travel Social History Tobacco Use Types Packs/Day [...] Info) Description 07/04/2024 2:00 PM EDT Nutrition [facility] DIABETES/NUTRITION [address] [place] [address] Alexa Louis, KAYLA [address] [place] [address] 07/18/2024 3:30 PM EDT Medication Management [facility] MEDICINE [address] [place] [address] Kina Soria, PharmD [address] [place] [address] documented as of this encounter Visit Diagnoses Not on filedocumented in this encounter Additional Health Concerns Assessment Noted Time PHQ-9 Depression Total Score: 15 025 3:56 PM EST documented as of this encounter Care Teams Levi Maker Relationship Specialty Start Date End Date Name, MD Jorge [address] [place] [address] PCP - General Internal Medicine 03/10/22 documented as of this encounter
--- OUTSIDE RECORDS SUMMARY | 2024-06-28 08:11 | XMS_ITS | Encounter Summary ---
Author Organization [facility] Address [address] [facility] 7t [place] [address] Care Team Providers Care Investment Manager Name Role Phone Name, Jorge BEASLEY Primary Care Provider [phone] Reason for Visit * Reason Onset Date Comments telephone call 06/13/2024 Encounter Details Date Type Department Care Team ([facility] st Contact Info) Description 06/13/2024 Telephone [facility] [address] [place], [place] [phone] Name, MD Jorge [address] [place] [address] telephone call Social History Tobacco Use Types Packs/Day Years [...] AM EDT documented as of this encounter Miscellaneous Notes * Telephone Encounter - Soheila Julian - 06/13/2024 6:32 PM EST Tc to patient due to eligibility, patient was aware that her insurance is inactive. Advised patientto walk in to insurance enrollment to fix insurance. Patient agreed with the outcome. documented in this encounter Plan of Treatment Upcoming Encounters Date Type Department Care Team (Late st Contact Info) Description 07/04/2024 2:00 PM EDT Nutrition [facility] DIABETES/NUTRITION [address] [place] [address] Alexa Louis, RD [address] [place] [address] 07/18/2024 3:30 PM EDT Medication Management [facility] MEDICINE [address] [place] [address] PuiaKina, PharmD [address] [place] [address] documented as of this encounter Visit Diagnoses Not on filedocumented in this encounter Additional Health Concerns Assessment Noted Time PHQ-9 Depression Total Score: 10 024 2:00 PM EDT documented as of this encounter Care Teams Investment Manager Relationship Specialty Start Date End Date Name, MD Jorge [address] [place] [address] PCP - General Internal Medicine 03/10/22 documented as of this encounter
--- OUTSIDE RECORDS SUMMARY | 2024-06-28 08:11 | XMS_ITS | Encounter Summary ---
Author Organization [facility] Address [address] [place] [address] 7[address] [place] [address] Care Team Providers Care Home Designer Name Role Phone Jorge Tomas MD Primary Care Provider [phone] Reason for Referral * Consultation (Routine) - Pending Review Specialty Diagnoses / Procedures Referred By Alejandro jacobson Referred To Contact Nutrition Diagnoses Morbid obesity (CMS/HCC) Jorge Tomas MD [address] [place] [address] Phone: tel: fax: Referral ID Status Reason Start Date Expiration Date Visits Requested Visits Authorized [id number] Pending Review Consult and Treat 06/14/2024 06/14/2025 1 1 * Consultation (Routine) - Pending Review Specialty Diagnoses / Procedures Referred By Alejandro jacobson Referred To Contact Pharmacy Diagnoses Tobacco user Jorge Tomas MD [address] [place] [address] Phone: tel: fax: Referral ID Status Reason Start Date Expiration Date Visits Requested Visits Authorized [id number] Pending Review Consult and Treat 06/14/2024 06/14/2025 6 6 * Consultation (Urgent) - Closed Specialty Diagnoses / Procedures Referred By Alejandro jacobson Referred To Contact Behavioral Health Diagnoses Grief Depression, unspecified depression type Jorge Tomas MD [address] [place] [address] Phone: tel: fax: Referral ID Status Reason Start Date Expiration Date V isits Requested Visits Authorized [id number] Closed Specialty Services Required 06/14/2024 06/14/2025 1 1 * Consultation (Routine) - Authorized Specialty Diagnoses / Procedures Referred By Alejandro t Referred To Contact General Surgery Diagnoses Skin cyst Jorge Tomas MD [address] [place] [address] Phone: tel: fax: [facility] General Surgeons [address] Floor [place], [place] Phone: tel: fax: Referral ID Status Reason Start Date Expiration Date Visits Requested Visits Authorized [id number] Authorized Specialty Services Required 06/14/2024 06/14/2025 12 12 Reason for Visit * Reason Comments Follow-up Encounter Details Date Type Department Care Team (Late st Contact Info) Description 06/14/2024 3:30 PM EST Office Visit [facility] [address] [place] [address] Jorge Tomas MD [address] [place] [address] Morbid obesity (CMS/HCC) (Primary Dx); Tobacco use disorder; Grief; Depression, unspecified depression type; Skin cyst Social History Tobacco Use Types Packs/Day Years [...] AM EDT documented as of this encounter Last Filed Vital Signs Vital Sign Reading [...] Mass Index 48.15 06/14/2024 3:41 PM EST documented in this encounter Progress Notes * Jorge Tomas MD - 06/14/2024 3:30 PM EST Subjective Patient ID: Elizabeth Ralph is a 53 y.o. female who presents for Follow-up. Patient comes for a follow-up visit. She is morbidly obese. She was started on treatment with Wegovy to help her with weight loss last year in January. The patient used the medication for 2 weeks only. She noted significant decreased appetite but at the time she traveled to [place], her mother passed, she became quite depressed and stopped using the medication. She tells me that she started overeating because of her depression. She has gained weight compared to her last visit. She denies any suicidal or homicidal ideation. She is not drinking alcohol or using illicit drugs. She is smoking cigarettes daily. She is interested in referral to behavioral health. She is interested in restarting treatment for weight loss. She does not have any personal or familyhistory of thyroid cancer. No history of pancreatitis. Review of Systems Constitutional: Negative for chills and fever. HENT: Negative for sore throat. Respiratory: Negative for cough, shortness of breath and wheezing. Cardiovascular: Negative for chest pain, palpitations and leg swelling. Gastrointestinal: Negative for abdominal pain. Psychiatric/Behavioral: Negative for suicidal ideas. Visit Vitals BP 101/72 (BP Location: Left arm, Patient Position: Sitting, BP Cuff Size: Large adult) Pulse 99 Temp 97.4 ??F (36.3 ??C) (Temporal) Resp 21 Ht 5' 3 (1.6 m) Wt 271 lb 12.8 oz (123 kg) SpO2 98% BMI 48.15 kg/m?? Smoking Status Every Day BSA 2.34 m?? Objective Physical Exam Constitutional: Appearance: Normal appearance. She is obese. Cardiovascular: Rate and Rhythm: Normal rate and regular rhythm. Heart sounds: No murmur heard. No gallop. Pulmonary: Effort: Pulmonary effort is normal. No respiratory distress. Breath sounds: Normal breath sounds. No wheezing. Musculoskeletal: Right lower leg: No edema. Left lower leg: No edema. Skin: Comments: She has a small skin cyst on the right upper chest that she would like removed. Neurological: Mental Status: She is alert. Assessment/Plan Diagnoses and all orders for this visit: Morbid obesity (CMS/HCC) Comments: I will restart treatment for morbid obesity with comorbidities including pre- diabetes. She was prescribed Zepbound. I recommended to avoid sweets, soda, sweetened drinks, processed foods. She is recommended to walk daily. Referral to relocation commissioner. Follow-up in 2 to 3 months. We discussed the GI side effects of the medication. My plan is to increase her dose to 5 mg next month. Orders: - Tirzepatide-Weight Management (Zepbound) 2.5 MG/0.5ML solution auto-injector; Inject 0.5 mL (2.5mg) under the skin 1 (one) time per week. Tobacco use disorder Comments: I will refer the patient to smoking cessation program Orders: - Referral to Pharmacy CDTM Grief Comments: Patient is not suicidal. She agreed with referral to behavioral health. Orders: - Referral to Behavioral Health; Future Depression, unspecified depression type Comments: See above. Orders: - Referral to Behavioral Health; Future Skin cyst Comments: Most likely benign inclusion cyst. I referred the patient to surgery as requested. Orders: - Referral to General Surgery; Future documented in this encounter Plan of Treatment Upcoming Encounters Date Type Department Care Team (Late st Contact Info) Description 07/04/2024 2:00 PM EDT Nutrition [facility] [address] [place] [address] Alexa Louis, RD [address] [place] [address] 07/18/2024 3:30 PM EDT Medication Management [facility] [address] [place] [address] Kina Soria, AgathaD [address] [place] [address] Scheduled Referrals Name Type Priority Associated Diagnoses Orde r Schedule Referral to General Surgery Outpatient Referral Routine Skin cyst Expected: 06/14/2024 (Approximate), Expires: 06/14/2025 Referral to Behavioral Health Outpatient Referral Routine Grief Depression, unspecified depression type Expected: 06/14/2024 (Approximate), Expires: 06/14/2025 Referral to Pharmacy CDTM Outpatient Referral Routine Tobacco use disorder Ordered: 06/14/2024 Referral to Nutrition Therapy Outpatient Referral Routine Morbid obesity ([facility]/HCC) Expected: 06/14/2024 (Approximate), Expires: 06/14/2025 documented as of this encounter Visit Diagnoses Diagnosis Morbid obesity (CMS/HCC)- Primary Morbid obesity Tobacco use disorder Grief Adjustment disorder with depressed mood Depression, unspecified depression type Skin cyst Sebaceous cyst documented in this encounter Additional Health Concerns Assessment Noted Time PHQ-9 Depression Total Score: 15 025 3:56 PM EST documented as of this encounter Care Teams Home Designer Relationship Specialty Start Date End Date Name, MD Jorge [address] [place] [address] PCP - General Internal Medicine 03/10/22 documented as of this encounter
[2024-06-28 08:12] VITALS: BP 146/70; PULSE 100; BMI 43.4
== END 2024-06-28 08:33 | disposition home or self-care (01) ==
LOC: HO.HGS 08:05
PROVIDERS: PCP Internal Medicine Geriatric Medicine; Visit Provider Surgery
DX: L72.0 Epidermal cyst (principal)
CPT/HCPCS: 99204

== ENCOUNTER → 2024-06-28 08:04 | Outpatient (BNVA) | payer MEDICAID, SELFPAY | PROVIDERS: PCP Internal Medicine Geriatric Medicine; Visit Provider Surgery | DX: L72.0 Epidermal cyst (principal) | CPT/HCPCS: 99202 ==

== ENCOUNTER 2024-07-04 12:57 | Outpatient (REF) | payer MEDICAID, SELFPAY | END 2024-07-04 12:58 | disposition home or self-care (01) | LOC: HO.LNP 12:57 | PROVIDERS: PCP Internal Medicine Geriatric Medicine; Visit Provider Surgery | DX: N60.89 Other benign mammary dysplasias of unspecified breast (principal) | CPT/HCPCS: 11402; 88304; J2004 ==

== ENCOUNTER 2024-07-04 12:57 | Outpatient (AMB) | payer MEDICAID, SELFPAY ==
--- NOTE | 2024-07-04 13:07 | A.OFFVIS_ITS ---
Vital Signs 07/04/24 13:08 Height 5 ft 6 in Weight 266 lb 12.149 oz BMI 43.1 Intake Visit Reasons: Excision EIC~ Rt ant chest Allergies No Known Allergies Allergy (Verified 07/04/24 13:08) Medication List - Last Reconciled 07/04/24 by Kenan Sorto MD albuterol sulfate 90 mcg/actuation 2 puffs inhalation Q4H PRN 30 days celecoxib (Celebrex) 200 mg PO BID 30 days docusate sodium (Colace) 100 mg PO BID PRN fluticasone propionate 110 mcg/actuation (Flovent HFA) 1 puff inhalation BID ibuprofen 600 mg PO Q6H PRN ibuprofen 800 mg PO Q8H PRN 15 days levothyroxine 150 mcg PO QAM omeprazole 20 mg PO DAILY 90 days HPI Comments Details: Patient presents for excision of her anterior chest wall sebaceous cyst. Risks, benefits, alternatives of procedure reviewed with the patient included but not limited to bleeding, infection, recurrence, numbness, pain, scarring the patient wished to proceed. All questions answered. [facility] Medical History Tubal ectopic Breast pain Breast cancer screening, high risk patient Skin rash Hypothyroidism Left leg pain DVT of leg (deep venous thrombosis) Ectopic Surgical History History of laparoscopic cholecystectomy (02/16/23) Family History Father Diabetes mellitus Mother Unknown family medical history Paternal Grandmother Diabetes mellitus Hypertension Stroke Social History Household Members: Spouse and Children Housing: House Do you presently have visiting nurse or other home services: No Alcohol intake: never Comment: counts done and correct Patient Tobacco Use Status: Former Tobacco user Tobacco use type: Cigarette Cigarette Packs Per Day: 1 Cigarettes Per Day: 1 Years Smoked: 15 e-Cigarette/Vaping Use: Never Used service: No 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 Physical Exam Vital Signs: BMI result Body Mass Index 43.1 Office Procedures Excision Details: After appropriate positioning, patient underwent 1% lidocaine Betadine prepped and an oblique by elliptical incision was made around the cyst in question with dimensions as described earlier. Specimen sent to pathology. Wound was irrigated, secured hemostasis, and closed using running subcuticular 3-0 Vicryl suture followed by Steri-Strips and sterile dressings. Patient tolerated procedure well. 00412-euizt/arms/legs 2.1-3cm Procedure code (CPT) selection complete Office Meds lidocaine 1 %-epinephrine 1:100,000 injection solution Performing Provider: Kenan Sorto MD Performing Location: [facility] General Surgeons Administered by: Kenan Sorto MD on 07/04/24 13:52 Dose Route Admin Location Dispensed Lot Number Expiration Date [facility] Skin Carver 20 mL Infiltration 20 mL Assessment & Plan Assessment & Plan (1) Sebaceous cyst of breast: Code(s): N60.89 - Other benign mammary dysplasias of unspecified breast Category: Surgical Plan: Patient and her significant other were given local wound instructions including showering in 2 days removing only outside dressing leaving Steri-Strips intact, Tylenol Motrin for pain, ice periodically and no strenuous activities. They will see me as directed or p.r.n.. All questions answered. Orders: Orders AMB Excision Today N6 - Other benign mammary dysplasias of unspecified breast Medications: New lidocaine-epinephrine 1 %-1:100,000 20 mL Infiltration ONCE 30 mL 0RF N6.89 - Other benign mammary dysplasias of unspecified breast Coding Level of Care Code Est Pt Level 5 (43133) Diagnoses Sebaceous cyst of breast . CPT Codes Trunk/Arms/Legs - CPT: 68663-qbzvs/arms/legs 2.1-3cm ([id number])
[2024-07-04 13:08] VITALS: BMI 43.1
== END 2024-07-04 13:38 | disposition home or self-care (01) ==
LOC: HO.HGS 12:57
PROVIDERS: PCP Internal Medicine Geriatric Medicine; Visit Provider Surgery
DX: L72.0 Epidermal cyst (principal)
CPT/HCPCS: 11402

== ENCOUNTER 2024-07-11 11:57 | Outpatient (AMB) | payer MEDICAID, SELFPAY ==
[2024-07-11 12:04] VITALS: BP 133/58; PULSE 97; O2SAT 100; BMI 43.0
--- NOTE | 2024-07-11 12:04 | A.OFFVIS_ITS ---
Vital Signs 07/11/24 12:04 Height 5 ft 6 in Weight 266 lb 5.094 oz BMI 43.0 BP 133/58 L Blood Pressure Location Lt brachial Position Sitting Pulse 97 Pulse Source Pulse Oximeter Pulse Oximetry (%) 100 Oxygen Delivery Method Room Air Intake Visit Reasons: 1 week s/p Excision EIC~ Rt ant chest Intake Note: Patient here s/p excision on Rt ant chest. Reports incision healing well. WLE: 07-04-2024 Allergies adhesive tape Allergy (Mild, Verified 07/11/24 12:19) Blister HPI Comments Details: Patient presents with her significant other. Status post excision anterior chest wall mass. Pathology was benign. Patient had developed a rash from the Steri-Strips. [facility] Medical History Tubal ectopic Breast pain Breast cancer screening, high risk patient Skin rash Hypothyroidism Left leg pain DVT of leg (deep venous thrombosis) Ectopic Surgical History History of laparoscopic cholecystectomy (02/16/23) Family History Father Diabetes mellitus Mother Unknown family medical history Paternal Grandmother Diabetes mellitus Hypertension Stroke Social History Household Members: Spouse and Children Housing: House Do you presently have visiting nurse or other home services: No Alcohol intake: never Comment: counts done and correct Patient Tobacco Use Status: Former Tobacco user Tobacco use type: Cigarette Cigarette Packs Per Day: 1 Cigarettes Per Day: 1 Years Smoked: 15 e-Cigarette/Vaping Use: Never Used service: No 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 On either side, there was significant dermatitis from the Steri-Strips which have been removed. Assessment & Plan Assessment & Plan (1) Encounter for postoperative wound check: Code(s): Z48.89 - Encounter for other specified surgical aftercare Category: Surgical Plan Patient was been given local instructions as well as to avoid adhesive tape in her future. All questions answered. Patient will otherwise follow-up p.r.n.. Coding Level of Care Code Global (01617) Diagnoses Encounter for postoperative wound check Z48.89
--- OUTSIDE RECORDS SUMMARY | 2024-07-11 14:16 | XMS_ITS | Clinical Summary ---
Author Organization [facility] Address [address] [place] [address] [address]t [place] [address] Care Team Providers Care Separations Scientist Name Role Phone Name, Jorge BEASLEY Primary Care Provider [phone] Allergies No known active allergies Medications * [...] organization. Date Type Department Care Team Description 07/10/2024 Telephone [facility] [address] [place] [address] Elizabeth Reddy MA october recalls 06/23/2024 Population Health Risk Score Community [facility] ([facility]) Department [address] [address] Provider, Population Health Generic 06/15/2024 Travel 06/14/2024 3:30 PM EST Office Visit [facility] [address] [place] [address] Jorge Tomas MD Morbid obesity (CMS/HCC) (Primary Dx); Tobacco use disorder; Grief; Depression, unspecified depression type; Skin cyst 06/14/2024 Travel 06/13/2024 Telephone [facility] [address] [place] [address] Jorge Tomas MD telephone call 05/23/2024 2:30 PM EST Office Visit [facility] [address] [place] [address] Tarka, Deya, OD Ocular hypertension, bilateral (Primary Dx); Aphakia of left eye 05/23/2024 Travel 04/13/2024 Telephone [facility] [address] [place] [address] Elizabeth Reddy MA apr recalls from Last 3 Months Immunizations Name Administration [...] Care Team (Late st Contact Info) Description 07/18/2024 3:30 PM EDT Medication Management [facility] [address] [place] [phone] Kina Soria, PharmD [address] [place], [place] [phone] 3:30 PM EDT Office Visit [facility] [address] [place] [phone] Name, MD Jorge [address] [place], [place] [phone] Health Maintenance Due Date Last Done Comments [...] AM EDT) Hemoglobin A1c 6.2(H) <6.0 % [facility] Comment:Hemoglobin A1C Refer ence Range Adults: 4.8 - 6.0 % Non diabetic: < 6.0 % Goal: < 7.0 %Additional Action Suggested: > 8.0 %Note: Hemoglobin A1c results are invalid for patients with abnormal amounts of HbF. Blood transfusions may impact the HbA1c concentration in the patient sample. Estimated Average Glucose 131 mg/dL [facility] Comment:eAG = Estimated ave rage glucose which is %A1C expressed asaverage glucose, using the formula of the F6E-MljfuicGrsnvhy Glucose study (ADAG), Diabetes Care, Vol.31,#8,Nov. 2007 Blood Venous blood specimen / Unknown 11/19/2023 9:30 AM EDT 11/19/2023 10:51 AM EDT Jorge Tomas MD LAB BLOOD ORDERABLES Final Resul t Performing Organization Address [facility]/ZIP Co de Phone Number [facility] [address] [place] [address] [phone] * (ABNORMAL) Lipid Panel, Standard (11/19/2023 9:30 AM EDT) Triglycerides 229(H) <150 mg/dL [facility] Comment:Desirable Triglyceri de: less than 150 mg/dLBorderline High Triglyceride 150-199 mg/dLHigh Triglyceride: 200-499 mg/dLVery High Triglyceride: greater than or equal to 5OO mg/dL Cholesterol 208(H) <200 mg/dL [facility] Comment:Desirable Cholestero l: less than 200 mg/dLBorderline High Cholesterol: 200-239 mg/dLHigh Cholesterol: greater than 239 mg/dL LDL Cholesterol Calculated 128(H) <100 mg/dL [facility] Comment:Desirable LDL: less than 100 mg/dLNear Optimal/Above Optimal LDL: 110- 129 mg/dLBorderline High LDL: 130-159 mg/dLHigh LDL: 160-189 mg/dLVery High LDL: greater than or equal to 190 mg/dL HDL Cholesterol 35(L) >40 mg/dL [facility] Comment:Desirable HDL: great er than 40 mg/dL Note: This HDL assay may give artificially low results in patients with liver disease. Blood Venous blood specimen / Unknown 11/19/2023 9:30 AM EDT 11/19/2023 10:51 AM EDT us Jorge Tomas MD LAB BLOOD ORDERABLES Final Resul t Performing Organization Address City/[facility]/ZIP Co de Phone Number [facility] [address] [place] [address] [phone] from Last 3 Months or Most Recently Relevant to Health Maintenance Insurance [employer] [facility] [employer] Care Teams Separations Scientist Relationship Specialty Start Date End Date Name, MD Jorge [address] [place] [phone] PCP - General Internal Medicine 03/10/22
--- OUTSIDE RECORDS SUMMARY | 2024-07-11 14:16 | XMS_ITS | Clinical Summary ---
Author Organization [facility] Address [address] [place] [address] Care Team Providers Care Stain Wiper Name Role Phone Unavailable Primary Care Provider [...]
--- OUTSIDE RECORDS SUMMARY | 2024-07-11 14:16 | XMS_ITS | Encounter Summary ---
Author Organization [employer] Address [address] [facility] 7[address] [place] [address] Care Team Providers Care Valet Runner Name Role Phone Name, Jorge BEASLEY Primary Care Provider Reason for Visit * Reason Onset Date Comments october recalls 07/10/2024 Encounter Details Date Type Department Care Team ([facility] st Contact Info) Description 07/10/[address] [facility] [address] [facility] [place] [address] Elizabeth Reddy MA october recalls Social History Tobacco Use Types Packs/Day Years [...] encounter Miscellaneous Notes * Telephone Encounter - Elizabeth Reddy MA - 07/10/2024 1:54 PM EDT Telephone call to patient to schedule the following recall: Visit type: Follow up Appointment notes: pre-Dm Patient agree to appointment on 10/24/24 at 3;30 PM with Name. documented in this encounter Plan of Treatment Upcoming Encounters Date Type Department Care Team (Late st Contact Info) Description 07/18/2024 3:30 PM EDT Medication Management [facility] [address] [place] [phone] Kina Soria, PharmD [address] [place] [phone] 3:30 PM EDT Office Visit [facility] [address] [place] [phone] Jorge Tomas MD [address] [place] [phone] documented as of this encounter Visit Diagnoses Not on filedocumented in this encounter Additional Health Concerns Assessment Noted Time PHQ-9 Depression Total Score: 15 025 3:56 PM EST documented as of this encounter Care Teams Valet Runner Relationship Specialty Start Date End Date Jorge Toams MD [address] [place] [phone] PCP - General Internal Medicine 03/10/22 documented as of this encounter
== END 2024-07-11 12:26 | disposition home or self-care (01) ==
PROVIDERS: PCP Internal Medicine Geriatric Medicine; Visit Provider Surgery
DX: Z48.89 Encounter for other specified surgical aftercare (principal)
CPT/HCPCS: 99024

== ENCOUNTER → 2024-07-11 11:57 | Outpatient (BNVA) | payer MEDICAID, SELFPAY | PROVIDERS: PCP Internal Medicine Geriatric Medicine; Visit Provider Surgery | DX: Z09 Encounter for follow-up examination after completed treatment for conditions other than malignant neoplasm (principal); Z87.2 Personal history of diseases of the skin and subcutaneous tissue; Z98.890 Other specified postprocedural states | CPT/HCPCS: 99212 ==

== ENCOUNTER 2024-07-22 12:24 | Inpatient (IN) | payer MEDICAID, SELFPAY ==
[2024-07-22] VITALS (10 sets, daily range): BP systolic 104–160; BP diastolic 38–83; PULSE 107–128; RESP 18–26; TEMP 37–39.6; O2SAT 89–99; BMI 42.9
--- NOTE | ~2024-07-22 | XR_ITS ---
CLINICAL HISTORY: cough 1 week Two views of the chest. COMPARISON: None FINDINGS: Normal heart and mediastinal contours. Consolidation along the lung base seen best on lateral imaging, likely within the left lower lobe. No definite pleural effusion. No pneumothorax. No fracture identified. IMPRESSION: 1. Probable left lower lobe pneumonia. This document has been electronically signed by: Tonny Sanches MD on 07/22/2024 14:05:42
--- NOTE | 2024-07-22 12:31 | ED_ITS ---
HPI - General Adult General Chief complaint: Dyspnea Stated complaint: Difficulty breathing Time Seen by Provider: 07/22/24 12:30 Source: patient Mode of arrival: ambulatory Limitations: language barrier (Qatari-speaking interpreter deaf utilized) History of Present Illness ED Provider: alyssa gutiérrez np HPI narrative: patient is a 53-year-old female who presents emergency department for evaluation. She reports flu-like symptoms over the past week. Nasal congestion, productive cough with white/green phlegm, shortness of breath, difficulty breathing, fevers, chest pain during periods of coughing. About 5 days ago she developed a sore throat. Four days ago she went to [facility] urgent Care, states she was given acetaminophen and benzonatate neither of which helped her symptoms. She states that she had COVID-19 testing performed which was negative. Had no chest x-ray. She has been using inhalers and nebulizer machine at home without any improvement. Her shortness of breath was far worse today than it has been previously. She is a cigarette smoker, has refrain from smoking cigarettes over the past week since she became ill Related Data Home Medications ?Medication ?Instructions ?Recorded ?Confirmed fluticasone propionate 110 1 puff inhalation BID 02/15/23 07/11/24 mcg/actuation HFA aerosol inhaler (Flovent HFA) Previous Rx's ?Medication ?Instructions ?Recorded ibuprofen 800 mg tablet 800 mg PO Q8H PRN pain 15 days #30 06/06/20 tabs albuterol sulfate 90 mcg/actuation 2 puff inhalation Q4H PRN 09/08/20 aerosol inhaler bronchospasm 30 days #6.7 grams levothyroxine 150 mcg tablet 150 mcg PO QAM #30 tabs 05/30/21 omeprazole 20 mg capsule,delayed 20 mg PO DAILY 90 days #90 caps 03/13/22 release docusate sodium 100 mg capsule 100 mg PO BID PRN constipation 02/17/23 (Colace) #180 caps ibuprofen 600 mg tablet 600 mg PO Q6H PRN pain #30 tabs 02/17/23 celecoxib 200 mg capsule (Celebrex) 200 mg PO BID 30 days #60 caps 02/16/24 Allergies Allergy/AdvReac Type Severity Reaction Status Date / Time adhesive tape Allergy Mild Blister Verified 07/22/24 12:29 Review of Systems 2 Review of Systems: Yes all other systems are reviewed and are negative [facility] Past Medical History Attestation statement: The following information was validated with the patient. Source: old records reviewed Medical History Tubal ectopic Breast pain Breast cancer screening, high risk patient Skin rash Hypothyroidism Left leg pain DVT of leg (deep venous thrombosis) Ectopic Surgical History History of laparoscopic cholecystectomy (02/16/23) Family History Family History Father Diabetes mellitus Mother Unknown family medical history Paternal Grandmother Diabetes mellitus Hypertension Stroke Social History Social History Household Members: Spouse and Children Housing: House Do you presently have visiting nurse or other home services: No Alcohol intake: never Comment: counts done and correct Patient Tobacco Use Status: Former Tobacco user Tobacco use type: Cigarette Cigarette Packs Per Day: 1 Cigarettes Per Day: 1 Years Smoked: 15 Smoked in Last 30 Days: No e-Cigarette/Vaping Use: Never Used Use of substances other than those prescribed or required for medical reasons: No Advance Directives: No Advance Directives Information Provided: No Do you have a plan to hurt others: No Plan service: No Current occupation: [employer] Physical Exam ED Vital Signs: Vital Signs - 24 hr 07/22/24 12:25 07/22/24 12:39 07/22/24 13:05 Temperature 98.7 F 101.1 F H 103.2 F H Pulse Rate 112 H 125 H 121 H Respiratory Rate 22 H 26 H 24 H Blood Pressure 106/66 160/83 H Pulse Oximetry 94 98 95 Oxygen Delivery Method Room Air Room Air Room Air 07/22/24 13:16 07/22/24 14:01 07/22/24 14:43 Temperature 100.5 F H Pulse Rate 116 H 128 H 120 H Respiratory Rate 23 H 18 24 H Blood Pressure 135/68 116/38 L Pulse Oximetry 99 98 Oxygen Delivery Method Room Air Room Air 07/22/24 15:15 07/22/24 16:35 Temperature 99.7 F Pulse Rate 114 H 126 H Respiratory Rate 25 H 26 H Blood Pressure 120/60 Pulse Oximetry 96 89 L Oxygen Delivery Method Room Air Room Air BMI result Body Mass Index 42.9 Appearance: Alert.?Oriented to person, place and time. No acute distress.?Normal affect. Eyes: Pupils equal, round and reactive to light.? ENT: Pharynx normal.?? Neck: Normal inspection.? Neck supple.?? CVS: Heart sounds normal. Normal heart rate and rhythm.? Pulses normal.?? Respiratory: No respiratory distress.? Lung sounds clear to auscultation bilaterally?? Abdomen: Soft and non-tender. Normoactive bowel sounds. Skin: Skin warm and dry.? Normal skin color.? Extremities: No lower extremity edema.? No calf ttp? Neuro: Moves all extremities spontaneously. Sensation intact bilaterally. No focal neuro deficits. Ambulates with normal steady gait. Course Course Course Narrative: This is a rapid medical exam performed by Iona Aceves NP: Additional HPI, ROS, PE not included below will be deferred to primary provider. 07/22/24 12:31 Patient is a 53-year-old Qatari speaking female presenting with complaint of dry nose last Wednesday, Wednesday developed sore throat, shortness of breath. Went to [facility] urgent care, was given two medications but is feeling worse. Plan: EKG, labs, viral panel, CXR Reevaluation(s) Reevaluation #1: Influenza B positive, Group a strep positive. CXR concerning for left lower lobe pneumonia. Lactic acid of 2.1. CBC is without leukocytosis anemia or thrombocytopenia. No electrolyte derangement. No MICK. Elevated LFTs as seen on prior. High sensitive troponin below detectable limits. BNP not elevated not consistent with CHF, clinically without signs of volume overload. Reevaluation #2: At rest she reports improvement in her shortness of breath after being medicated in the emergency department, with ambulation trial she remains notably dyspneic, tachycardic and tachypneic, with O2 saturation down to 89% despite receiving Solu-Medrol, albuterol nebulizer, magnesium. At this point feel that she is appropriate for admission, will speak with hospitalist, Dr. Pereira Time: 17:00 Medications Administered Generic Name Dose Route Start Last Admin Trade Name Freq PRN Reason Stop Dose Admin Doxycycline Monohydrate 100 mg 07/22/24 20:00 07/22/24 20:28 Doxycycline Monohydrate 100 Mg Capsule PO 100 mg Q12H JUWAN Administration Enoxaparin Sodium 40 mg 07/22/24 20:00 07/22/24 20:29 Enoxaparin Sodium 40 Mg/0.4 Ml Syringe SUBCUT 40 mg Q24H JUWAN Administration Methylprednisolone Sodium Succinate 40 mg 07/22/24 21:00 07/22/24 20:28 Methylprednisolone Sod Succ 40 Mg/Ml Vial IVPUSH 40 mg Q8H JUWAN Administration Oseltamivir Phosphate 75 mg 07/22/24 20:00 07/22/24 20:28 Oseltamivir Phosphate 75 Mg Capsule PO 07/27/24 08:01 75 mg Q12H JUWAN Administration Discontinued Medications Generic Name Dose Route Start Last Admin Trade Name Freq PRN Reason Stop Dose Admin Acetaminophen 975 mg 07/22/24 12:49 07/22/24 13:31 Acetaminophen 325 Mg Tablet PO 07/22/24 12:50 975 mg ONCE ONE Administration Ceftriaxone Sodium 1 gm 07/22/24 12:46 07/22/24 13:19 Ceftriaxone Sodium 1 Gm Vial IVPUSH 07/22/24 12:47 1 gm ONCE ONE Administration Albuterol Sulfate 2.5 mg/ 0 mg 07/22/24 13:16 07/22/24 13:21 Albuterol/Ipratropium 3 ml INHALE 07/22/24 13:17 5 dose ONCE ONE Administration Sodium Chloride 1,641 mls @ 1,641 mls/hr 07/22/24 12:49 07/22/24 14:20 Ns IV 07/22/24 13:48 Infused .Q1H STA Infusion Sodium Chloride 1,000 mls @ 999 mls/hr 07/22/24 14:30 07/22/24 15:55 Ns IV 07/22/24 15:30 Infused .Q1H1M JUWAN Infusion Magnesium Sulfate 2 gm in 50 mls @ 150 mls/hr 07/22/24 14:25 07/22/24 15:06 Magnesium Sulfate/H2o IV 07/22/24 14:44 Infused ONCE ONE Infusion Methylprednisolone Sodium Succinate 125 mg 07/22/24 12:46 07/22/24 13:20 Methylprednisolone Sod Succ 125 Mg/2 Ml Vial IVPUSH 07/22/24 12:47 125 mg ONCE ONE Administration Medical Decision Making Medical Decision Making MDM Narrative: Patient is a 53-year-old female past medical history of asthma, hypothyroidism, GERD who presents emergency department for evaluation of shortness a breath and difficulty breathing in the setting of illness over the past week with a associated productive cough, sore throat, and diffuse anterior chest pain during episodes of cough. She arrives tachypneic, tachycardic, and febrile reading sepsis criteria. Sepsis alert was called. Initial sepsis fluid bolus was ordered based on ideal body weight secondary to obesity. Will obtain CBC to evaluate for leukocytosis/ anemia, CMP and lipase to evaluate for abnormal electrolytes /abnormal renal function/ abnormal hepatic/biliary function, EKG and troponin to evaluate for ischemia/ACS. Chest x-ray to evaluate for consolidation/ infiltrate/ mass/ pulmonary congestion, viral serologies, urinalysis, venous blood gas in addition to the blood cultures and lactic acid. She will be covered with Rocephin 1 g IV, she will additionally receive Solu- Medrol 125 mg IV, and have placed orders for ED bronchodilator protocol. 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 No rash or lesions, urticaria, or evidence of angioedema to suggest allergic reaction/anaphylaxis. No swallowing difficulties to suggest aspiration. No recent trauma or injury, no tracheal deviation, unlikely tension pneumothorax. No history of diabetes, unlikely DKA. No acute bleeding or known anemia, no associated dizziness fatigue or chest pain to suggest acute anemia. Differential Diagnosis Differential Diagnoses: The differential diagnosis associated with the presentation includes (See narrative above) Admission/Observation Consideration of admission/observation: Escalation of care including admission/observation considered (See narrative above and course narrative for further detail) Lab Data MDM Lab Attestation statement: I reviewed the patient's lab results. (See course narrative) 07/22/24 13:14 07/22/24 13:14 Labs: Lab Results 07/22/24 07/22/24 07/22/24 Range/Units 13:04 13:14 13:15 WBC 9.6 (4.8-10.8) X10*3/uL RBC 5.45 (4.20-5.50) X10*6/uL Hgb 14.8 (12.0-16.0) g/dl Hct 45.2 (37.0-47.0) % MCV 82.9 (80.0-98.0) fL MCH 27.2 (27.0-33.0) pg MCHC 32.7 (31.0-35.0) g/dl RDW 13.7 (11.0-16.0) % Plt Count 181 D (160-400) X10*3/uL MPV 10.5 (9.4-12.3) fL Immature Gran % (Auto) 0.4 (0.0-0.4) % Neut % (Auto) 64.1 (45-73) % Lymph % (Auto) 33.1 (20-40) % [place] % (Auto) 2.2 (2-11) % Eos % (Auto) 0.1 (0-4) % Baso % (Auto) 0.1 (0-2) % Lymph # (Auto) 3.2 (1.2-4.9) X10*3/uL [place] # (Auto) 0.2 (0.1-1.2) X10*3/uL Eos # (Auto) 0.0 (0.0-0.4) X10*3/uL Baso # (Auto) 0.0 (0.0-0.2) X10*3/uL Abs Immat Gran (auto) 0.04 H (0.00-0.03) X10*3/uL Absolute Neuts (auto) 6.2 (2.0-8.3) x10*3/uL Absolute Nucleated RBC 0.000 (0.0-0.012) X10*3/uL Nucleated RBC % (auto) 0.0 (0.0-0.2) /100WBC PT 10.9 (10.9-12.4) SEC INR 0.9 (0.9-1.1) D-Dimer High Sensitivty 249 NG/ML VBG pH (7.32-7.43) VBG pCO2 mmHg VBG pO2 mmHg VBG HCO3 (22-26) mmol/L VBG O2 Saturation % VBG Base Excess mmol/L Sodium 140 (135-145) mmol/L Potassium 3.8 (3.3-5.1) mmol/L Chloride 104 (96-108) mmol/L Carbon Dioxide 25 (22-29) mmol/L Anion Gap 15 (12-20) BUN 8 L (9-16) mg/dL Creatinine 0.75 (0.5-1.4) mg/dL Estim Creat Clear Calc 109.5 Estimated GFR > 60 Random Glucose 114 (60-115) mg/dL Lactic Acid 2.1 H* (0.5-2.0) mmol/L Lactic Acid F/U @ 2Hr (0.5-2.0) mmol/L Calcium 8.9 (8.4-10.2) mg/dL Magnesium 1.8 (1.6-2.6) mg/dL Total Bilirubin 0.3 (0.0-1.0) mg/dL AST 64 H (5-31) U/L ALT 49 H (0-31) U/L Alkaline Phosphatase 123 H (39-117) U/L Troponin I High Sens < 2.7 (<3.5-17.0) ng/L B-Natriuretic Peptide < 10 (<100) pg/mL Total Protein 7.6 (6.5-8.0) g/dL Albumin 4.3 (3.5-5.0) g/dL Urine Color Urine Appearance Urine pH (5.0-9.0) Ur Specific [place] (1.005-1.025) Urine Protein (Neg-Trace) mg/dL Urine Glucose (UA) (Negative) mg/dL Urine Ketones (Negative) mg/dL Urine Blood (Negative) Urine Nitrite (Negative) Ur Leukocyte Esterase (Negative) Urine RBC (0-2) /HPF Urine WBC (0-5) /HPF Ur Squamous Epith Cells (0-2) /HPF Urine Bacteria (None Seen) Hyaline Casts (0-2) /LPF Influenza Type A (PCR) NEGATIVE (Negative) Influenza Type B (PCR) POSITIVE A (Negative) RSV RNA Qual (PCR) NEGATIVE (Negative) SARS-CoV-2 RNA (RT-PCR) NEGATIVE (Negative) S. pyogenes GrpA YAMEL Positive A (Negative) 07/22/24 07/22/24 07/22/24 Range/Units 13:27 14:40 15:44 WBC (4.8-10.8) X10*3/uL RBC (4.20-5.50) X10*6/uL Hgb (12.0-16.0) g/dl Hct (37.0-47.0) % MCV (80.0-98.0) fL MCH (27.0-33.0) pg MCHC (31.0-35.0) g/dl RDW (11.0-16.0) % Plt Count (160-400) X10*3/uL MPV (9.4-12.3) fL Immature Gran % (Auto) (0.0-0.4) % Neut % (Auto) (45-73) % Lymph % (Auto) (20-40) % [place] % (Auto) (2-11) % Eos % (Auto) (0-4) % Baso % (Auto) (0-2) % Lymph # (Auto) (1.2-4.9) X10*3/uL [place] # (Auto) (0.1-1.2) X10*3/uL Eos # (Auto) (0.0-0.4) X10*3/uL Baso # (Auto) (0.0-0.2) X10*3/uL Abs Immat Gran (auto) (0.00-0.03) X10*3/uL Absolute Neuts (auto) (2.0-8.3) x10*3/uL Absolute Nucleated RBC (0.0-0.012) X10*3/uL Nucleated RBC % (auto) (0.0-0.2) /100WBC PT (10.9-12.4) SEC INR (0.9-1.1) D-Dimer High Sensitivty NG/ML VBG pH 7.48 H (7.32-7.43) VBG pCO2 43 mmHg VBG pO2 42 mmHg VBG HCO3 32 H (22-26) mmol/L VBG O2 Saturation 73.0 % VBG Base Excess 8.3 mmol/L Sodium (135-145) mmol/L Potassium (3.3-5.1) mmol/L Chloride (96-108) mmol/L Carbon Dioxide (22-29) mmol/L Anion Gap (12-20) BUN (9-16) mg/dL Creatinine (0.5-1.4) mg/dL Estim Creat Clear Calc Estimated GFR Random Glucose (60-115) mg/dL Lactic Acid (0.5-2.0) mmol/L Lactic Acid F/U @ 2Hr 1.3 (0.5-2.0) mmol/L Calcium (8.4-10.2) mg/dL Magnesium (1.6-2.6) mg/dL Total Bilirubin (0.0-1.0) mg/dL AST (5-31) U/L ALT (0-31) U/L Alkaline Phosphatase (39-117) U/L Troponin I High Sens (<3.5-17.0) ng/L B-Natriuretic Peptide (<100) pg/mL Total Protein (6.5-8.0) g/dL Albumin (3.5-5.0) g/dL Urine Color Yellow Urine Appearance Clear Urine pH 8.0 (5.0-9.0) Ur Specific [place] 1.010 (1.005-1.025) Urine Protein Negative (Neg-Trace) mg/dL Urine Glucose (UA) Negative (Negative) mg/dL Urine Ketones Negative (Negative) mg/dL Urine Blood Trace H (Negative) Urine Nitrite Negative (Negative) Ur Leukocyte Esterase Negative (Negative) Urine RBC 6-10 H (0-2) /HPF Urine WBC 0-5 (0-5) /HPF Ur Squamous Epith Cells 0-2 (0-2) /HPF Urine Bacteria None Seen (None Seen) Hyaline Casts 0-2 (0-2) /LPF Influenza Type A (PCR) (Negative) Influenza Type B (PCR) (Negative) RSV RNA Qual (PCR) (Negative) SARS-CoV-2 RNA (RT-PCR) (Negative) S. pyogenes GrpA YAMEL (Negative) Independent Interpretation I performed an independent interpretation of an: EKG (Sinus tachycardia with ventricular rate of 123, QTC 452, no ST elevation) and Plain X-Ray Radiology Impression Discussion of test interpretation with radiology: I have reviewed the radiologist's reading. Radiologist Impression: Two views of the chest. COMPARISON: None FINDINGS: Normal heart and mediastinal contours. Consolidation along the lung base seen best on lateral imaging, likely within the left lower lobe. No definite pleural effusion. No pneumothorax. No fracture identified. IMPRESSION: 1. Probable left lower lobe pneumonia. Independent Historian Clinical information obtained from an independent historian. History obtained from or confirmed by: Spouse External Record Review External record reviewed: Outpatient record Chronic Conditions Patient?s care impacted by: Other (see above) Discharge Plan Discharge Clinical Impression: Acute hypoxemic respiratory failure, Acute streptococcal pharyngitis, Influenza, Pneumonia Patient Disposition: Admitted As Inpatient
--- NOTE | 2024-07-22 12:32 | ECG_ITS ---
Test Reason : chest pain Blood Pressure : */* mmHG Vent. Rate : 123 BPM Atrial Rate : 123 BPM P-R Int : 158 ms QRS Dur : 80 ms QT Int : 316 ms P-R-T Axes : 53 33 33 degrees QTcB Int : 452 ms Sinus tachycardia Cannot rule out Anterior infarct , age undetermined Abnormal ECG No previous ECGs available Referred By: Maude Aceves Electronically Signed By: Sam Manuel
--- NOTE | 2024-07-22 13:06 | PC.NURSE ---
Pt is a difficult sick. THis RN was 2nd attempt for IV access and failed.
[2024-07-22] MEDS: cefTRIAXone sodium 1 GM VIAL IVPUSH (13:19)
[2024-07-22] MEDS: methylPREDNISolone Sod Succ 125 MG/2 ML VIAL IVPUSH (13:20)
[2024-07-22] MEDS: Albuterol Sulfate 2.5 MG, Albuterol/Iprat 2.5/0.5MG 3 ML 3 ML INHALE (13:21)
--- NOTE | 2024-07-22 13:24 | PC.NURSE ---
pt difficult stick. 3 RNs attempted. delay in abx due to this.
[2024-07-22 13:25] LABS: MANUAL DIFF FLAG NO
[2024-07-22 13:26] LABS: Basophils Percent Auto 0.1 % (0-2); Eosinophils Percent Auto 0.1 % (0-4); Hematocrit 45.2 % (37.0-47.0); Hemoglobin 14.8 g/dl (12.0-16.0); Imm Gran Abs Auto 0.04 X10*3/uL (0.00-0.03); Imm Gran Pct Auto 0.4 % (0.0-0.4); Lymphocytes Absolute Auto 3.2 X10*3/uL (1.2-4.9); Lymphocytes Percent Auto 33.1 % (20-40); Mean Corpuscular HGB Conc 32.7 g/dl (31.0-35.0); Mean Corpuscular Hemoglobin 27.2 pg (27.0-33.0); Mean Corpuscular Volume 82.9 fL (80.0-98.0); Mean Platelet Volume 10.5 fL (9.4-12.3); Monocytes Absolute Auto 0.2 X10*3/uL (0.1-1.2); Monocytes Percent Auto 2.2 % (2-11); Neutrophils Absolute Auto 6.2 x10*3/uL (2.0-8.3); Neutrophils Percent Auto 64.1 % (45-73); Platelet Count 181 X10*3/uL (160-400); Red Blood Count 5.45 X10*6/uL (4.20-5.50); Red Cell Distribution Width 13.7 % (11.0-16.0); White Blood Count 9.6 X10*3/uL (4.8-10.8)
[2024-07-22 13:30] LABS: Venous Blood Gas Refer to POC result
[2024-07-22] MEDS: Acetaminophen 325 MG TABLET 975 MG PO (13:31)
[2024-07-22 13:32] LABS: VBG Base Excess 8.3 mmol/L; VBG HCO3 32 mmol/L (22-26); VBG pCO2 43 mmHg; VBG pH 7.48 (7.32-7.43); VBG pO2 42 mmHg
[2024-07-22 13:32] LABS: INTERNATIONAL NORM RATIO 0.9 (0.9-1.1); Prothrombin Time 10.9 SEC (10.9-12.4)
[2024-07-22 13:38] LABS: IDNOW Serial# 55D5AD1C; Strep A Nucleic Acid Positive (Negative)
[2024-07-22 13:39] LABS: Magnesium 1.8 mg/dL (1.6-2.6)
[2024-07-22 13:43] LABS: Lactic Acid 2.1 mmol/L (0.5-2.0)
[2024-07-22 13:46] LABS: B Type Natriuretic Peptide < 10 pg/mL (<100)
[2024-07-22 13:47] LABS: Troponin-I High Sensitivity < 2.7 ng/L (<3.5-17.0)
[2024-07-22 14:06] LABS: Alanine Aminotransferase 49 U/L (0-31); Albumin Level 4.3 g/dL (3.5-5.0); Alkaline Phosphatase 123 U/L (39-117); Anion Gap 15 (12-20); Aspartate Amino Transferase 64 U/L (5-31); Bilirubin Total 0.3 mg/dL (0.0-1.0); Blood Urea Nitrogen 8 mg/dL (9-16); Calcium 8.9 mg/dL (8.4-10.2); Carbon Dioxide 25 mmol/L (22-29); Chloride 104 mmol/L (96-108); Creatinine Clr Calc Pharmacy 109.5; Estimated Glomerular Filt Rate > 60; Glucose Random 114 mg/dL (60-115); Potassium 3.8 mmol/L (3.3-5.1); Sodium 140 mmol/L (135-145); Total Protein 7.6 g/dL (6.5-8.0)
[2024-07-22 14:08] LABS: Influenza A PCR NEGATIVE (Negative); Influenza B PCR POSITIVE (Negative); Resp Syncy Virus RNA Qual PCR NEGATIVE (Negative); SARS COV2 PCR INHOUSE NEGATIVE (Negative)
[2024-07-22] MEDS: 0.9 % Sodium Chloride 1,000 ML 999 ML IV (14:36)
[2024-07-22] MEDS: Magnesium Sulfate/H2O 2 GM/50 ML PIGGYBACK IV (14:43)
[2024-07-22 14:56] LABS: Appearance Urine Clear; Color Urine Yellow; Glucose Urine UA Negative (Negative); Leukocyte Esterase Urine Negative (Negative); Nitrite Urine Negative (Negative); UMIC TRIGGER UACC YES; Urine Blood Trace (Negative); Urine Ketones Negative (Negative); Urine Protein Negative (Neg-Trace)
--- NOTE | 2024-07-22 14:56 | PC.NURSE ---
pt comes to ed with cough, shortness of breath, generalized malaise for over 1 week. she went to at [facility] and was given tylenol and tesselon without improvement. she presents today tachy, febrile, and tachypneic. 2 IVs established with difficulty and multiple attempts. IV fluids infused, BPs remain stable. Tylenol given for fever. sinus tach on tele
[2024-07-22 15:01] LABS: Bacteria Urine None Seen (None Seen); Hyaline Casts Urine 0-2 /LPF (0-2); Squamous Epithelial Cell Urine 0-2 /HPF (0-2); WBC Urine 0-5 /HPF (0-5)
[2024-07-22 15:23] LABS: Reflex Lactate? Lactic Acid Added
[2024-07-22 16:01] LABS: ~Lactic Acid-LAB USE ONLY 1.3 mmol/L (0.5-2.0)
--- NOTE | 2024-07-22 17:10 | PC.NURSE ---
ambulation trial. pt dipped as low as 89 and did not get above 91% on RA while walking. she was tachy throughout walk and reported dizziness. helped back to bed - sinus tach on tele. 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
[2024-07-22 19:23] LABS: D Dimer High Sensitivity 249 NG/ML
--- NOTE | 2024-07-22 19:51 | PM.IMHP ---
History of Present Illness Date of Service: 07/22/24 Chief Complaint: sob 53-year-old female with a past medical history of asthma presented to the hospital today with a chief complaint of shortness of breath. Patient reports that she has been having cough and shortness of breath for about a week now. Has been having sore throat. Denies any difficulty swallowing. Denies any change in the voice. Patient denies any nausea vomiting or diarrhea. Denies any chest pain or palpitations. Review of all other systems is negative except mentioned above ER course: Per ER team, patient noted to be wheezing, hypoxic to 88%, tachycardic and tachypneic; not in respiratory distress; placed on supplemental oxygen. Given nebulizations and steroids. Patient also received a dose of IV magnesium. Patient tested positive for influenza and group B Streptococcus. given ceftriaxone. [facility] Medical History Tubal ectopic Breast pain Breast cancer screening, high risk patient Skin rash Hypothyroidism Left leg pain DVT of leg (deep venous thrombosis) Ectopic Family History Father Diabetes mellitus Mother Unknown family medical history Paternal Grandmother Diabetes mellitus Hypertension Stroke Surgical History History of laparoscopic cholecystectomy (02/16/23) Social History Household Members: Significant Other Housing: House Do you presently have visiting nurse or other home services: No Alcohol intake: never Comment: counts done and correct Patient Tobacco Use Status: Former Tobacco user Tobacco use type: Cigarette Cigarette Packs Per Day: 1 Cigarettes Per Day: 1 Years Smoked: 15 e-Cigarette/Vaping Use: Never Used service: No 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 Meds Allergies Allergy/AdvReac Type Severity Reaction Status Date / Time adhesive tape Allergy Mild Blister Verified 07/22/24 12:29 Active Medications: Current Medications Acetaminophen (Acetaminophen 325 Mg Tablet) 650 mg PO Q6H PRN PRN Reason: Pain, Mild 1-3,fever,headache Albuterol/Ipratropium (Albuterol/Iprat 2.5/0.5mg 3 Ml Ampul.Neb) 3 ml INHALE RQ4H WHILE AWAKE PRN PRN Reason: Shortness of Breath Albuterol/Ipratropium (Albuterol/Iprat 2.5/0.5mg 3 Ml Ampul.Neb) 3 ml INHALE Q6H JUWAN Azithromycin (Azithromycin 500 Mg Tablet) 500 mg PO Q24H JUWAN Calcium Carbonate (Calcium Carbonate 750 Mg Tab.Chew) 750 mg PO Q4H PRN PRN Reason: Heartburn Ceftriaxone Sodium (Ceftriaxone Sodium 1 Gm Vial) 1 gm IVPUSH Q24H JUWAN Enoxaparin Sodium (Enoxaparin Sodium 40 Mg/0.4 Ml Syringe) 40 mg SUBCUT Q24H JUWAN Magnesium Hydroxide (Milk Of Magnesia 30 Ml Oral.Susp) 30 ml PO DAILY PRN PRN Reason: Constipation Melatonin (Melatonin 3 Mg Tablet) 6 mg PO BEDTIME PRN PRN Reason: Insomnia Sodium Chloride (0.9 % Sodium Chloride Flush 3 Ml Syringe) 3 ml IVFLUSH QSHIFT JUWAN Home Medications ?Medication ?Instructions ?Recorded ?Confirmed ?Last Taken ?Type acetaminophen 500 mg tablet 1,000 mg PO Q8H PRN pain or fever 07/23/24 07/23/24 Unknown History benzonatate 100 mg capsule 100 mg PO TID PRN cough 07/23/24 07/23/24 Unknown History fluticasone furoate 100 1 inh inhalation DAILY 07/23/24 07/23/24 Unknown History mcg/actuation blister powder for inhalation (Arnuity Ellipta) latanoprost 0.005 % eye drops 1 drp ophthalmic (eye) BEDTIME 07/23/24 07/23/24 Unknown History levothyroxine 150 mcg tablet 150 mcg PO DAILY@0600 07/23/24 07/23/24 Unknown History lidocaine 5 % topical patch 2 patch topical DAILY 07/23/24 07/23/24 Unknown History omeprazole 20 mg capsule,delayed 20 mg PO DAILY@0630 07/23/24 07/23/24 Unknown History release tirzepatide (weight loss) 2.5 2.5 mg subcut MO 07/23/24 07/23/24 07/17/24 History mg/0.5 mL subcutaneous pen injector (Zepbound) Physical Exam Vital Signs and Narrative: Vital Signs: Last Vital Signs Temp 99.7 F 07/22/24 15:15 Pulse 126 H 07/22/24 16:35 Resp 26 H 07/22/24 16:35 BP 120/60 07/22/24 15:15 Pulse Ox 89 L 07/22/24 16:35 O2 Del Method Room Air 07/22/24 16:35 BMI result Body Mass Index 42.9 Gen: Appears be in no acute distress HEENT: NCAT, Moist mucosa. Pulmonary: coarse breath sounds CVS: Normal S1-S2 Abdomen: BS+, Soft, Nontender Extremities: Warm well perfused Neuro: Alert and awake. Results Labs 07/23/24 06:24 07/23/24 06:24 Labs: Laboratory Results - last 24 hr 07/22/24 07/22/24 07/22/24 13:04 13:14 13:15 MCV 82.9 MCH 27.2 MCHC 32.7 RDW 13.7 Plt Count 181 D MPV 10.5 Immature Gran % (Auto) 0.4 Neut % (Auto) 64.1 Lymph % (Auto) 33.1 [place] % (Auto) 2.2 Eos % (Auto) 0.1 Baso % (Auto) 0.1 Lymph # (Auto) 3.2 [place] # (Auto) 0.2 Eos # (Auto) 0.0 Baso # (Auto) 0.0 Abs Immat Gran (auto) 0.04 H Absolute Neuts (auto) 6.2 Absolute Nucleated RBC 0.000 Nucleated RBC % (auto) 0.0 PT 10.9 INR 0.9 D-Dimer High Sensitivty 249 VBG pH VBG pCO2 VBG pO2 VBG HCO3 VBG O2 Saturation VBG Base Excess Anion Gap 15 Estim Creat Clear Calc 109.5 Estimated GFR > 60 Random Glucose 114 Lactic Acid 2.1 H* Lactic Acid F/U @ 2Hr Calcium 8.9 Magnesium 1.8 Total Bilirubin 0.3 AST 64 H ALT 49 H Alkaline Phosphatase 123 H B-Natriuretic Peptide < 10 Total Protein 7.6 Albumin 4.3 Urine Color Urine Appearance Urine pH Ur Specific [place] Urine Protein Urine Glucose (UA) Urine Ketones Urine Blood Urine Nitrite Ur Leukocyte Esterase Urine RBC Urine WBC Ur Squamous Epith Cells Urine Bacteria Hyaline Casts Influenza Type A (PCR) NEGATIVE Influenza Type B (PCR) POSITIVE A RSV RNA Qual (PCR) NEGATIVE SARS-CoV-2 RNA (RT-PCR) NEGATIVE S. pyogenes GrpA YAMEL Positive A 07/22/24 07/22/2407/22/25 13:27 14:40 15:44 MCV MCH MCHC RDW Plt Count MPV Immature Gran % (Auto) Neut % (Auto) Lymph % (Auto) [place] % (Auto) Eos % (Auto) Baso % (Auto) Lymph # (Auto) [place] # (Auto) Eos # (Auto) Baso # (Auto) Abs Immat Gran (auto) Absolute Neuts (auto) Absolute Nucleated RBC Nucleated RBC % (auto) PT INR D-Dimer High Sensitivty VBG pH 7.48 H VBG pCO2 43 VBG pO2 42 VBG HCO3 32 H VBG O2 Saturation 73.0 VBG Base Excess 8.3 Anion Gap Estim Creat Clear Calc Estimated GFR Random Glucose Lactic Acid Lactic Acid F/U @ 2Hr 1.3 Calcium Magnesium Total Bilirubin AST ALT Alkaline Phosphatase B-Natriuretic Peptide Total Protein Albumin Urine Color Yellow Urine Appearance Clear Urine pH 8.0 Ur Specific [place] 1.010 Urine Protein Negative Urine Glucose (UA) Negative Urine Ketones Negative Urine Blood Trace H Urine Nitrite Negative Ur Leukocyte Esterase Negative Urine RBC 6-10 H Urine WBC 0-5 Ur Squamous Epith Cells 0-2 Urine Bacteria None Seen Hyaline Casts 0-2 Influenza Type A (PCR) Influenza Type B (PCR) RSV RNA Qual (PCR) SARS-CoV-2 RNA (RT-PCR) S. pyogenes GrpA YAMEL Assessment and Plan (1) Asthma exacerbation: Qualifiers: Asthma persistence: unspecified Asthma severity: unspecified severity Qualified Code(s): J45.901 - Unspecified asthma with (acute) exacerbation Status: Acute Plan 53-year-old female with a past medical history of asthma presented to the hospital today with a chief complaint of shortness of breath. noted to be in acute asthma exacerbation. Admitted for further management. acute hypoxic respiratory failure: Acute asthma exacerbation: Left lower lobe pneumonia: Influenza: Continue nebulizations standing and p.r.n. Continue supplemental oxygen p.r.n. Continue Solu-Medrol Continue ceftriaxone and doxycycline Tamiflu Trending pulse oximetry and ready for discharge Sore throat: Patient positive for group B Streptococcus: On ceftriaxone as mentioned above. Denies any dysphagia or odynophagia. DVT prophylaxis: Lovenox Code status: Full code Quality Stroke Does the patient have a stroke diagnosis?: No VTE Prior VTE?: No VTE Risk Level:: Medical - moderate - high VTE Device Contraindication: Treatment Not Indicated VTE Drug Contraindication: N/A - Med Ordered
[2024-07-22] MEDS: Doxycycline Monohydrate 100 MG CAPSULE PO (20:28)
[2024-07-22] MEDS: methylPREDNISolone Sod Succ 40 MG/ML VIAL IVPUSH (20:28)
[2024-07-22] MEDS: Oseltamivir Phosphate 75 MG CAPSULE PO (20:28)
[2024-07-22] MEDS: Enoxaparin Sodium 40 MG/0.4 ML SYRINGE SUBCUT (20:29)
--- NOTE | 2024-07-22 20:36 | PC.NURSE ---
Pt a&ox4, no signs of distress. Pt medicated per mar Pt placed on monitor and pulse ox. Pt requested and light dimmed. Plan of care ongoing.
[2024-07-22] MEDS: Albuterol/Iprat 2.5/0.5MG 3 ML AMPUL.NEB INHALE (21:09)
--- NOTE | 2024-07-22 22:59 | PC.NURSE ---
Pt a&Ox4, no signs of distress Pt resting in bed comfortably on cell phone Pt denies pain at this time Plan of care ongoing.
[2024-07-23] VITALS (9 sets, daily range): BP systolic 97–153; BP diastolic 57–75; PULSE 82–111; RESP 18–20; TEMP 36–36.9; O2SAT 94–100
[2024-07-23] MEDS: methylPREDNISolone Sod Succ 40 MG/ML VIAL IVPUSH ×3 (04:58→21:14)
[2024-07-23] MEDS: Benzonatate 100 MG CAPSULE PO (04:58)
[2024-07-23 06:39] LABS: Hematocrit 39.6 % (37.0-47.0); Hemoglobin 12.8 g/dl (12.0-16.0); Mean Corpuscular HGB Conc 32.3 g/dl (31.0-35.0); Mean Corpuscular Hemoglobin 26.8 pg (27.0-33.0); Mean Corpuscular Volume 82.8 fL (80.0-98.0); Mean Platelet Volume 10.5 fL (9.4-12.3); Platelet Count 181 X10*3/uL (160-400); Red Blood Count 4.78 X10*6/uL (4.20-5.50); Red Cell Distribution Width 13.6 % (11.0-16.0); White Blood Count 14.6 X10*3/uL (4.8-10.8)
[2024-07-23 07:01] LABS: Alanine Aminotransferase 41 U/L (0-31); Albumin Level 3.8 g/dL (3.5-5.0); Alkaline Phosphatase 95 U/L (39-117); Anion Gap 14 (12-20); Aspartate Amino Transferase 42 U/L (5-31); Bilirubin Total 0.3 mg/dL (0.0-1.0); Blood Urea Nitrogen 8 mg/dL (9-16); Calcium 8.4 mg/dL (8.4-10.2); Carbon Dioxide 25 mmol/L (22-29); Chloride 108 mmol/L (96-108); Creatinine Clr Calc Pharmacy 122.6; Estimated Glomerular Filt Rate > 60; Glucose Random 155 mg/dL (60-115); Potassium 3.6 mmol/L (3.3-5.1); Sodium 143 mmol/L (135-145); Total Protein 6.7 g/dL (6.5-8.0)
[2024-07-23] MEDS: 0.9 % Sodium Chloride Flush 3 ML SYRINGE IVFLUSH ×2 (07:48→18:15)
[2024-07-23] MEDS: Oseltamivir Phosphate 75 MG CAPSULE PO ×2 (07:49→21:13)
[2024-07-23] MEDS: Doxycycline Monohydrate 100 MG CAPSULE PO ×2 (07:49→21:12)
[2024-07-23] MEDS: Albuterol/Iprat 2.5/0.5MG 3 ML AMPUL.NEB INHALE ×3 (07:53→20:04)
--- NOTE | 2024-07-23 10:34 | PHA.MEDREC ---
Addendum entered by Linda Fregoso RPh 07/23/24 10:50: MED REC HAS BEEN REVIEWED BY [facility] Original Note: Pharmacy Consult ? Medication Reconciliation Pharmacy has completed the medication reconciliation. Spoke with patient through an dispatch associate. She takes Zepbound every Wednesday, had last Wednesday. She is not using nicotine patches. She uses 2 lidocaine patches daily, one on her back and one on her leg. Latanoprost is both eyes. She has not been taking her meds due to feeling sick.
--- NOTE | 2024-07-23 10:38 | P.PNIM_ITS ---
Subjective Subjective Date of Service: 07/23/24 Review of Systems Follow up Flu, PNA, asthma exacerbations feeling better Physical Exam 2 Vital Signs: Vital Signs: Last Vital Signs Temp 98.5 F 07/23/24 08:16 Pulse 105 H 07/23/24 08:16 Resp 20 07/23/24 08:16 BP 120/69 07/23/24 08:16 Pulse Ox 95 07/23/24 08:16 O2 Del Method Room Air 07/23/24 08:16 BMI result Body Mass Index 42.9 Appearing in no acute distress lung sounds are clear to auscultation heart regular rate rhythm, clear S1, S2 positive bowel sounds, abdomen is soft, nontender neuro patient is alert x3, no focal deficits Objective Data Active Medications Acetaminophen (Acetaminophen 325 Mg Tablet) 650 mg PO Q6H PRN PRN Reason: Pain, Mild 1-3,fever,headache Albuterol/Ipratropium (Albuterol/Iprat 2.5/0.5mg 3 Ml Ampul.Neb) 3 ml INHALE RQ4H WHILE AWAKE PRN PRN Reason: Shortness of Breath Albuterol/Ipratropium (Albuterol/Iprat 2.5/0.5mg 3 Ml Ampul.Neb) 3 ml INHALE Q6H [facility] Last Admin: 07/23/24 07:53 Dose: 3 ml Documented By: JANA Benzonatate (Benzonatate 100 Mg Capsule) 100 mg PO TID PRN PRN Reason: Cough Last Admin: 07/23/24 04:58 Dose: 100 mg Documented By: BHAVYA Calcium Carbonate (Calcium Carbonate 750 Mg Tab.Chew) 750 mg PO Q4H PRN PRN Reason: Heartburn Ceftriaxone Sodium (Ceftriaxone Sodium 1 Gm Vial) 1 gm IVPUSH Q24H [facility] Doxycycline Monohydrate (Doxycycline Monohydrate 100 Mg Capsule) 100 mg PO Q12H [facility] Last Admin: 07/23/24 07:49 Dose: 100 mg Documented By: MAGGY Enoxaparin Sodium (Enoxaparin Sodium 40 Mg/0.4 Ml Syringe) 40 mg SUBCUT Q24H [facility] Last Admin: 07/22/24 20:29 Dose: 40 mg Documented By: MIGUE Magnesium Hydroxide (Milk Of Magnesia 30 Ml Oral.Susp) 30 ml PO DAILY PRN PRN Reason: Constipation Melatonin (Melatonin 3 Mg Tablet) 6 mg PO BEDTIME PRN PRN Reason: Insomnia Methylprednisolone Sodium Succinate (Methylprednisolone Sod Succ 40 Mg/Ml Vial) 40 mg IVPUSH Q8H [facility] Last Admin: 07/23/24 04:58 Dose: 40 mg Documented By: BHAVYA Oseltamivir Phosphate (Oseltamivir Phosphate 75 Mg Capsule) 75 mg PO Q12H [facility] Stop: 07/27/24 08:01 Last Admin: 07/23/24 07:49 Dose: 75 mg Documented By: MAGGY Sodium Chloride (0.9 % Sodium Chloride Flush 3 Ml Syringe) 3 ml IVFLUSH QSHIFT [facility] Last Admin: 07/23/24 07:48 Dose: 3 ml Documented By: MAGGY Labs 07/23/24 06:24 07/23/24 06:24 Labs: Laboratory Results - last 24 hr 07/22/24 07/22/24 07/22/24 13:04 13:14 13:15 MCV 82.9 MCH 27.2 MCHC 32.7 RDW 13.7 Plt Count 181 D MPV 10.5 Immature Gran % (Auto) 0.4 Neut % (Auto) 64.1 Lymph % (Auto) 33.1 [place] % (Auto) 2.2 Eos % (Auto) 0.1 Baso % (Auto) 0.1 Lymph # (Auto) 3.2 [place] # (Auto) 0.2 Eos # (Auto) 0.0 Baso # (Auto) 0.0 Abs Immat Gran (auto) 0.04 H Absolute Neuts (auto) 6.2 Absolute Nucleated RBC 0.000 Nucleated RBC % (auto) 0.0 PT 10.9 INR 0.9 D-Dimer High Sensitivty 249 VBG pH VBG pCO2 VBG pO2 VBG HCO3 VBG O2 Saturation VBG Base Excess Anion Gap 15 Estim Creat Clear Calc 109.5 Estimated GFR > 60 Random Glucose 114 Lactic Acid 2.1 H* Lactic Acid F/U @ 2Hr Calcium 8.9 Magnesium 1.8 Total Bilirubin 0.3 AST 64 H ALT 49 H Alkaline Phosphatase 123 H B-Natriuretic Peptide < 10 Total Protein 7.6 Albumin 4.3 Urine Color Urine Appearance Urine pH Ur Specific [place] Urine Protein Urine Glucose (UA) Urine Ketones Urine Blood Urine Nitrite Ur Leukocyte Esterase Urine RBC Urine WBC Ur Squamous Epith Cells Urine Bacteria Hyaline Casts Influenza Type A (PCR) NEGATIVE Influenza Type B (PCR) POSITIVE A RSV RNA Qual (PCR) NEGATIVE SARS-CoV-2 RNA (RT-PCR) NEGATIVE S. pyogenes GrpA YAMEL Positive A 07/22/24 07/22/24 07/22/24 13:27 14:40 15:44 MCV MCH MCHC RDW Plt Count MPV Immature Gran % (Auto) Neut % (Auto) Lymph % (Auto) [place] % (Auto) Eos % (Auto) Baso % (Auto) Lymph # (Auto) [place] # (Auto) Eos # (Auto) Baso # (Auto) Abs Immat Gran (auto) Absolute Neuts (auto) Absolute Nucleated RBC Nucleated RBC % (auto) PT INR D-Dimer High Sensitivty VBG pH 7.48 H VBG pCO2 43 VBG pO2 42 VBG HCO3 32 H VBG O2 Saturation 73.0 VBG Base Excess 8.3 Anion Gap Estim Creat Clear Calc Estimated GFR Random Glucose Lactic Acid Lactic Acid F/U @ 2Hr 1.3 Calcium Magnesium Total Bilirubin AST ALT Alkaline Phosphatase B-Natriuretic Peptide Total Protein Albumin Urine Color Yellow Urine Appearance Clear Urine pH 8.0 Ur Specific [place] 1.010 Urine Protein Negative Urine Glucose (UA) Negative Urine Ketones Negative Urine Blood Trace H Urine Nitrite Negative Ur Leukocyte Esterase Negative Urine RBC 6-10 H Urine WBC 0-5 Ur Squamous Epith Cells 0-2 Urine Bacteria None Seen Hyaline Casts 0-2 Influenza Type A (PCR) Influenza Type B (PCR) RSV RNA Qual (PCR) SARS-CoV-2 RNA (RT-PCR) S. pyogenes GrpA YAMEL 07/23/24 06:24 MCV 82.8 MCH 26.8 L MCHC 32.3 RDW 13.6 Plt Count 181 MPV 10.5 Immature Gran % (Auto) Neut % (Auto) Lymph % (Auto) [place] % (Auto) Eos % (Auto) Baso % (Auto) Lymph # (Auto) [place] # (Auto) Eos # (Auto) Baso # (Auto) Abs Immat Gran (auto) Absolute Neuts (auto) Absolute Nucleated RBC 0.000 Nucleated RBC % (auto) 0.0 PT INR D-Dimer High Sensitivty VBG pH VBG pCO2 VBG pO2 VBG HCO3 VBG O2 Saturation VBG Base Excess Anion Gap 14 Estim Creat Clear Calc 122.6 Estimated GFR > 60 Random Glucose 155 H Lactic Acid Lactic Acid F/U @ 2Hr Calcium 8.4 Magnesium Total Bilirubin 0.3 AST 42 H ALT 41 H Alkaline Phosphatase 95 B-Natriuretic Peptide Total Protein 6.7 Albumin 3.8 Urine Color Urine Appearance Urine pH Ur Specific [place] Urine Protein Urine Glucose (UA) Urine Ketones Urine Blood Urine Nitrite Ur Leukocyte Esterase Urine RBC Urine WBC Ur Squamous Epith Cells Urine Bacteria Hyaline Casts Influenza Type A (PCR) Influenza Type B (PCR) RSV RNA Qual (PCR) SARS-CoV-2 RNA (RT-PCR) S. pyogenes GrpA YAMEL Assessment and Plan (1) Acute streptococcal pharyngitis: Status: Acute Plan 53-year-old female with a past medical history of asthma presented to the hospital today with a chief complaint of shortness of breath. noted to be in acute asthma exacerbation. Admitted for further management. Acute hypoxic respiratory failure secondary to acute asthma exacerbation, Left lower lobe pneumonia and Influenza nebulizations standing and p.r.n. supplemental oxygen p.r.n. Solu-Medrol ceftriaxone and doxycycline Tamiflu Sore throat Patient positive for group B Streptococcus On ceftriaxone as mentioned above. Denies any dysphagia or odynophagia. DVT prophylaxis: Lovenox Code status: Full code Quality Stroke Does the patient have a stroke diagnosis?: No VTE Prior VTE?: No VTE Risk Level:: Medical - moderate - high VTE Device Contraindication: Treatment Not Indicated VTE Drug Contraindication: N/A - Med Ordered
[2024-07-23] MEDS: cefTRIAXone sodium 1 GM VIAL IVPUSH (13:12)
[2024-07-23] MEDS: guaiFENesin LA 600 MG TAB.ER.12H PO ×2 (13:13→21:13)
--- NOTE | 2024-07-23 14:14 | MHC.CM.PN ---
Pt lives with her , who is also her HCP, Chiquis. She does not have home care services, uses a cane. PCP is Dr. Tomas, to transport home at DC, DCP: home, self care. CM to follow for DC needs.
[2024-07-23] MEDS: Acetaminophen 325 MG TABLET 650 MG PO (21:12)
[2024-07-23] MEDS: Enoxaparin Sodium 40 MG/0.4 ML SYRINGE SUBCUT (21:14)
[2024-07-24] VITALS: BP 114/64; PULSE 94; RESP 18; TEMP 36.2; O2SAT 94
[2024-07-24 03:40] VITALS: BP 123/73; PULSE 86; RESP 18; TEMP 36.4; O2SAT 96
[2024-07-24] MEDS: methylPREDNISolone Sod Succ 40 MG/ML VIAL IVPUSH (05:19)
[2024-07-24] MEDS: Levothyroxine Sodium 150 MCG TABLET PO (05:20)
[2024-07-24] MEDS: Omeprazole 20 MG CAPSULE.DR PO (05:20)
[2024-07-24 07:29] VITALS: O2SAT 87
[2024-07-24 07:31] VITALS: BP 179/77; PULSE 84; RESP 18; TEMP 36.6
[2024-07-24] MEDS: Albuterol/Iprat 2.5/0.5MG 3 ML AMPUL.NEB INHALE (08:10)
[2024-07-24 08:11] VITALS: PULSE 87; RESP 18; O2SAT 90
[2024-07-24] MEDS: Doxycycline Monohydrate 100 MG CAPSULE PO (10:48)
[2024-07-24] MEDS: guaiFENesin LA 600 MG TAB.ER.12H PO (10:49)
[2024-07-24] MEDS: 0.9 % Sodium Chloride Flush 3 ML SYRINGE IVFLUSH (10:49)
[2024-07-24] MEDS: Oseltamivir Phosphate 75 MG CAPSULE PO (10:49)
--- NOTE | 2024-07-24 10:53 | PM.DS ---
DS: Providers Provider Date of Service: 07/24/24 Date of admission: 07/22/24 19:49 Date of discharge: 07/24/24 Primary care physician: Jorge Tomas MD DS: Diagnosis Discharge Diagnosis (1) Asthma exacerbation: Status: Acute DS: Summary Hospital Course Hospital Course: History and physical as per admitting provider. 53-year-old female with a past medical history of asthma presented to the hospital today with a chief complaint of shortness of breath. Patient reports that she has been having cough and shortness of breath for about a week now. Has been having sore throat. Denies any difficulty swallowing. Denies any change in the voice. Patient denies any nausea vomiting or diarrhea. Denies any chest pain or palpitations. Review of all other systems is negative except mentioned above ER course: Per ER team, patient noted to be wheezing, hypoxic to 88%, tachycardic and tachypneic; not in respiratory distress; placed on supplemental oxygen. Given nebulizations and steroids. Patient also received a dose of IV magnesium. Patient tested positive for influenza and group B Streptococcus. given ceftriaxone. 53-year-old woman treated for acute hypoxic respiratory failure secondary to acute asthma exacerbation, left lower lobe pneumonia and influenza B. Treated with nebulization, supplemental oxygen, Solu-Medrol, Rocephin and doxycycline as well as Tamiflu for flu. She complained of shortness of breath and patient was positive for acute group B Streptococcus. She did not have any dysphagia or odynophagia. Plan will be to discharge patient to complete antibiotic course, 4 days of steroids and a course of Tamiflu. She is not requiring any oxygen and has not been hypoxic. Time Attestation Discharge Coordination Time (in mins): 40 Quality: Safe Use of Opioids Does Pt have an Active Cancer Diagnosis on the Problem List?: No Quality: Stroke Does the patient have a stroke diagnosis?: No Physical Exam Vital Signs: Vital Signs: Last Vital Signs Temp 97.8 F 07/24/24 07:31 Pulse 87 07/24/24 08:11 Resp 18 07/24/24 08:11 BP 179/77 H 07/24/24 07:31 Pulse Ox 96 07/24/24 03:40 O2 Del Method Room Air 07/24/24 03:40 BMI result Body Mass Index 42.9 Appearing in no acute distress head is normocephalic atraumatic eyes pupils are PERRLA sclera is anicteric mouth throat mucous membranes are intact and moist neck is supple no lymphadenopathy, no JVD noted lung sounds are clear to auscultation heart regular rate rhythm, clear S1, S2 positive bowel sounds, abdomen is soft, nontender neuro patient is alert x3, no focal deficits DS: Data Data Completed and Pending Completed studies during hospitalization [Text1]: Procedures Resection of Gallbladder, Percutaneous Endoscopic Approach (02/15/23) Labs on day of discharge: Preliminary micro results at discharge 07/22/24 13:18 Blood Culture - Preliminary Blood - Venous No growth after 24 hours. 07/22/24 13:14 Blood Culture - Preliminary Blood - Venous No growth after 24 hours. Discharge Plan Discharge Anticipated Discharge Date/Time: 07/24/24 10:03 Patient Disposition: Home, Self-Care Discharge Diagnosis: Acute hypoxic respiratory failure Acute asthma exacerbation Left lower lobe pneumonia Influenza B Group B Streptococcus Referrals: Name,MD Jorge [Primary Care Provider] - 1 Week Discharge Medications: New doxycycline monohydrate 100 mg Capsule 100 mg PO Q12H Qty: 10 0RF oseltamivir [Tamiflu] 75 mg Capsule 75 mg PO Q12H Qty: 6 0RF cefuroxime axetil 500 mg tablet 500 mg PO Q12H Qty: 10 0RF prednisone 10 mg tablet 40 mg PO DIRECTED Qty: 16 0RF Rx Instructions: Take 40 mg daily for 4 days Continued albuterol sulfate 90 mcg/actuation HFA aerosol inhaler 2 puff inhalation Q4H PRN (Reason: bronchospasm) 30 Days Qty: 6.7 3RF latanoprost 0.005 % drops 1 drp ophthalmic (eye) BEDTIME acetaminophen 500 mg tablet 1,000 mg PO Q8H PRN (Reason: pain or fever) benzonatate 100 mg capsule 100 mg PO TID PRN (Reason: cough) lidocaine 5 % adhesive patch,medicated 2 patch topical DAILY Protocol: Apply to: Apply to: BACK AND LEG Patient Comments: Applies to back and leg Arnuity Ellipta 100 mcg/actuation blister with device 1 inh INHALATION DAILY Zepbound 2.5 mg/0.5 mL pen injector 2.5 mg subcut MO omeprazole 20 mg capsule,delayed release(DR/EC) 20 mg PO DAILY@0630 levothyroxine 150 mcg tablet 150 mcg PO DAILY@0600 Discharge Orders: Discharge Order (Routine); Ordered 07/24/24 Ordered By: Suzanne Ralph Diet: Advance to usual diet Activity on Discharge: As tolerated Stand Alone Forms: Patient Portal Discharge page Print Language: Colombian Care Plan Goals: Complete course of antibiotics Health Concerns: Acute hypoxic respiratory failure Acute asthma exacerbation Left lower lobe pneumonia Influenza B Group B Streptococcus Plan of Treatment: Follow up with primary care provider as needed Take all medications as prescribed Assessment: See discharge summary
[2024-07-24 11:24] VITALS: BP 122/66; PULSE 80; RESP 20; TEMP 37; O2SAT 94
--- NOTE | 2024-07-24 11:50 | MHC.CM.PN ---
PT TO DC HOME TODAY WITH ON SERVICES VIA PRIVATE TRANSPORT
--- NOTE | 2024-07-25 15:57 | P.CDIM_ITS ---
PROVIDER RESPONSE TEXT: To clarify, the appropriate diagnosis supported by the clinical indicators: Mild intermittent QUERY TEXT: PHYSICIAN'S DOCUMENTATION REQUEST Date of Query: 07/24/2024 12:22 PM EDT Patient Name: Elizabeth Flores Admit Date: 07/22/2024 Dear Suzanne Ralph LEGAL FINANCIAL SPECIALIST, A review of the medical record indicates additional documentation may be needed. Please review below and update the documentation accordingly. Clinical indicators: Progress notes: Asthma exacerbation Acute hypoxic respiratory failure secondary to acute asthma exacerbation. Solumedrol, nebulizations standing and p.r.n. Patient present to hospital with chief complaint of shortness of breath and noted to be in acute asth ma exacerbation. Based on the above, please clarify in the Progress Notes further specificity regarding the type of as thma: Mild intermittent Mild persistent Moderate persistent Severe persistent Exercise induced Other (explain) Clinically unable to determine (explain) Thank you, Yumiko Brown, CCS, CDIS Use of terms such as suspected, likely, concern for, or probable (associated with a specific diagnosi s that is being evaluated, monitored, or treated as if it exists) are acceptable and can be coded in the inpatient se tting, when documented at the time of discharge. Please use your independent medical judgment in providing your response. THIS QUERY IS PART OF THE PERMANENT MEDICAL RECORD
== END 2024-07-24 13:04 | disposition home or self-care (01) | DRG 113 ==
LOC: HO.ED 13:38 → HO.EDOVER 19:55 → HO.IMC 07-23 10:10
PROVIDERS: Nurse Practitioner Family; Registered Nurse Emergency; Admitting Provider Hospitalist; Emergency Provider Emergency Medicine; PCP Internal Medicine Geriatric Medicine; Visit Provider Nurse Practitioner Acute Care
DX: J02.0 Streptococcal pharyngitis (principal); J96.01 Acute respiratory failure with hypoxia; J10.00 Influenza due to other identified influenza virus with unspecified type of pneumonia; J45.21 Mild intermittent asthma with (acute) exacerbation; E03.9 Hypothyroidism, unspecified; Z20.822 Contact with and (suspected) exposure to COVID-19; Z87.891 Personal history of nicotine dependence; Z79.890 Hormone replacement therapy; Z79.899 Other long term (current) drug therapy
CPT/HCPCS: 0241U; 36415; 71046; 80053; 81001; 82803; 83605; 83735; 83880; 84484; 85025; 85027; 85379; 85610; 87040; 87651; 93005; 94640; 99285; J0696; J1650; J2919; J3475

== ENCOUNTER → 2024-07-22 12:32 | Outpatient (BNV) | payer MEDICAID, SELFPAY | PROVIDERS: Admitting Provider Hospitalist; Emergency Provider Emergency Medicine; Visit Provider Internal Medicine Cardiovascular Disease | DX: R00.0 Tachycardia, unspecified (principal) | CPT/HCPCS: 93010 ==

== ENCOUNTER → 2024-07-22 12:32 | Outpatient (BNV) | payer MEDICAID, SELFPAY | PROVIDERS: Emergency Provider Emergency Medicine; Visit Provider Radiology Diagnostic Radiology | DX: R05.9 Cough, unspecified (principal) | CPT/HCPCS: 71046 ==

== ENCOUNTER → 2024-07-22 19:49 | Outpatient (BNV) | payer MEDICAID, SELFPAY | PROVIDERS: Admitting Provider Hospitalist; Emergency Provider Emergency Medicine; Visit Provider Nurse Practitioner Acute Care | DX: J02.0 Streptococcal pharyngitis (principal); J45.901 Unspecified asthma with (acute) exacerbation | CPT/HCPCS: 99223; 99232 ==

== ENCOUNTER 2024-11-24 14:03 | Emergency (ER) | payer MEDICAID, SELFPAY ==
[2024-11-24 14:37] VITALS: BP 113/73; PULSE 82; RESP 18; TEMP 36.1; O2SAT 99; BMI 43.7
--- NOTE | 2024-11-24 14:37 | ED_ITS ---
HPI - General Adult General Chief complaint: Dental/Oral Stated complaint: Swollen left cheek Related Data Home Medications ?Medication ?Instructions ?Recorded ?Confirmed acetaminophen 500 mg tablet 1,000 mg PO Q8H PRN pain o r fever 07/23/24 07/23/24 benzonatate 100 mg capsule 100 mg PO TID PRN cough 07/23/24 fluticasone furoate 100 1 inh inhalation DAILY 07/2307/23/24 mcg/actuation blister powder for inhalation (Arnuity Ellipta) latanoprost 0.005 % eye drops 1 drp ophthalmic (eye) B EDTIME 07/23/24 07/23/24 levothyroxine 150 mcg tablet 150 mcg PO DAILY@0600 07/23/24 lidocaine 5 % topical patch 2 patch topical DAILY 07/1107/23/24 omeprazole 20 mg capsule,delayed 20 mg PO DAILY@0630 0 07/23/24 07/23/24 release tirzepatide (weight loss) 2.5 2.5 mg subcut MO 5 07/23/24 mg/0.5 mL subcutaneous pen injector (Zepbound) Previous Rx's ?Medication ?Instructions ?Recorded albuterol sulfate 90 mcg/actuation 2 puff inhalation Q 4H PRN 09/08/20 aerosol inhaler bronchospasm 30 days #6.7 gr ams cefuroxime axetil 500 mg tablet 500 mg PO Q12H #10 tab s 07/24/24 doxycycline monohydrate 100 mg 100 mg PO Q12H #10 caps 07/24/24 capsule oseltamivir 75 mg capsule (Tamiflu) 75 mg PO Q12H #6 c aps 07/24/24 prednisone 10 mg tablet 40 mg (4 x 10 mg) PO DIRE CTED 07/24/24 #16 tabs Allergies Allergy/AdvReac Type Severity Reaction Status Date / Time adhesive tape Allergy Mild Blister Verified 11/24/24 14:37 [facility] Past Medical History Medical History Tubal ectopic Breast pain Breast cancer screening, high risk patient Skin rash Hypothyroidism Left leg pain DVT of leg (deep venous thrombosis) Ectopic Surgical History History of laparoscopic cholecystectomy (02/16/23) Family History Family History Father Diabetes mellitus Mother Unknown family medical history Paternal Grandmother Diabetes mellitus Hypertension Stroke Social History Social History Household Members: Significant Other Housing: House Do you presently have visiting nurse or other home services: No Alcohol intake: never Comment: counts done and correct Patient Tobacco Use Status: Former Tobacco user Tobacco use type: Cigarette Cigarette Packs Per Day: 1 Cigarettes Per Day: 1 Years Smoked: 15 e-Cigarette/Vaping Use: Never Used Advance Directives: No Advance Directives Information Provided: No service: No Current occupation: [employer] Physical Exam ED Vital Signs: Vital Signs - 24 hr 11/24/24 14:37 Temperature 97 F Pulse Rate 82 Respiratory Rate 18 Blood Pressure 113/73 Pulse Oximetry 99 Oxygen Delivery Method Room Air BMI result Body Mass Index 43.7 Course Course Course Narrative: 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 Deferred additional HPI, ROS, PE to primary provider. 54 yo female with pmh hypothyroidism, asthma here with complaints of left sided facial swellling since last evening. No trismus in triage. Appears to have abscess to left lower dental area. May need I&D vs imaging. Will obtain labs. VSS Medical Decision Making Lab Data 11/24/24 14:48 11/24/24 14:48 Labs: Lab Results 11/24/24 Range/Units 14:48 WBC 11.7 H (4.8-10.8) X10*3/uL RBC 5.30 (4.20-5.50) X10*6/uL Hgb 14.1 (12.0-16.0) g/dl Hct 43.4 (37.0-47.0) % MCV 81.9 (80.0-98.0) fL MCH 26.6 L (27.0-33.0) pg MCHC 32.5 (31.0-35.0) g/dl RDW 14.1 (11.0-16.0) % Plt Count 267 D (160-400) X10*3/uL MPV 9.7 (9.4-12.3) fL Immature Gran % (Auto) 0.3 (0.0-0.4) % Neut % (Auto) 62.1 (45-73) % Lymph % (Auto) 30.5 (20-40) % [place] % (Auto) 4.9 (2-11) % Eos % (Auto) 1.9 (0-4) % Baso % (Auto) 0.3 (0-2) % Lymph # (Auto) 3.6 (1.2-4.9) X10*3/uL [place] # (Auto) 0.6 (0.1-1.2) X10*3/uL Eos # (Auto) 0.2 (0.0-0.4) X10*3/uL Baso # (Auto) 0.0 (0.0-0.2) X10*3/uL Abs Immat Gran (auto) 0.03 (0.00-0.03) X10*3/uL Absolute Neuts (auto) 7.3 (2.0-8.3) x10*3/uL Absolute Nucleated RBC 0.000 (0.0-0.012) X10*3/uL Nucleated RBC % (auto) 0.0 (0.0-0.2) /100WBC Sodium 141 (135-145) mmol/L Potassium 3.5 (3.3-5.1) mmol/L Chloride 107 (96-108) mmol/L Carbon Dioxide 23 (22-29) mmol/L Anion Gap 15 (12-20) BUN 8 L (9-16) mg/dL Creatinine 0.72 (0.5-1.4) mg/dL Estim Creat Clear Calc 109.9 Estimated GFR > 60 Random Glucose 100 (60-115) mg/dL Calcium 8.9 (8.4-10.2) mg/dL Discharge Plan Discharge Clinical Impression: Toothache Patient Disposition: Left W/O Completing Treatment Prescriptions: No Action albuterol sulfate 90 mcg/actuation HFA aerosol inhaler 2 puff inhalation Q4H PRN (Reason: bronchospasm) 30 Days Qty: 6.7 3RF latanoprost 0.005 % drops 1 drp ophthalmic (eye) BEDTIME acetaminophen 500 mg tablet 1,000 mg PO Q8H PRN (Reason: pain or fever) benzonatate 100 mg capsule 100 mg PO TID PRN (Reason: cough) lidocaine 5 % adhesive patch,medicated 2 patch topical DAILY Protocol: Apply to: Apply to: BACK AND LEG Patient Comments: Applies to back and leg Arnuity Ellipta 100 mcg/actuation blister with device 1 inh INHALATION DAILY Zepbound 2.5 mg/0.5 mL pen injector 2.5 mg subcut MO omeprazole 20 mg capsule,delayed release(DR/EC) 20 mg PO DAILY@0630 levothyroxine 150 mcg tablet 150 mcg PO DAILY@0600 doxycycline monohydrate 100 mg Capsule 100 mg PO Q12H Qty: 10 0RF oseltamivir [Tamiflu] 75 mg Capsule 75 mg PO Q12H Qty: 6 0RF cefuroxime axetil 500 mg tablet 500 mg PO Q12H Qty: 10 0RF prednisone 10 mg tablet 40 mg PO DIRECTED Qty: 16 0RF Rx Instructions: Take 40 mg daily for 4 days Discharge Date/Time: 11/24/24 20:07
[2024-11-24 14:52] LABS: MANUAL DIFF FLAG NO
[2024-11-24 14:53] LABS: Hematocrit 43.4 % (37.0-47.0); Hemoglobin 14.1 g/dl (12.0-16.0); Imm Gran Abs Auto 0.03 X10*3/uL (0.00-0.03); Imm Gran Pct Auto 0.3 % (0.0-0.4); Lymphocytes Absolute Auto 3.6 X10*3/uL (1.2-4.9); Mean Corpuscular HGB Conc 32.5 g/dl (31.0-35.0); Mean Corpuscular Hemoglobin 26.6 pg (27.0-33.0); Mean Corpuscular Volume 81.9 fL (80.0-98.0); NRBC Abs Auto 0.000 X10*3/uL (0.0-0.012); NRBC Pct Auto 0.0 /100WBC (0.0-0.2); Platelet Count 267 X10*3/uL (160-400); Red Blood Count 5.30 X10*6/uL (4.20-5.50); White Blood Count 11.7 X10*3/uL (4.8-10.8)
[2024-11-24 15:10] LABS: Anion Gap 15 (12-20); Blood Urea Nitrogen 8 mg/dL (9-16); Calcium 8.9 mg/dL (8.4-10.2); Carbon Dioxide 23 mmol/L (22-29); Chloride 107 mmol/L (96-108); Creatinine Clr Calc Pharmacy 109.9; Estimated Glomerular Filt Rate > 60; Potassium 3.5 mmol/L (3.3-5.1); Sodium 141 mmol/L (135-145)
--- OUTSIDE RECORDS SUMMARY | 2024-11-24 20:00 | XMS_ITS | Clinical Summary ---
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 Phone Unavailable Primary Care Provider [...] Cervical Cancer Screening: P ap Smear 1993 Pneumococcal Vaccine: 50+ Ye ars (1 of 1 - PCV) 2022 Zoster Vaccines (1 of 2) 2022 COVID-19 Vaccine ( - 2023-2 5 season) 2023 Depression Screening 04/12/2024 Influenza Vaccine (#1) 2024 HIB Vaccines Aged Out No longer eligi [...] age to complete this topic Meningococcal B Vaccine Aged Out No l onger eligible based on patient's age to complete this topic RSV Immunization Patients Un frank 20 months Aged Out No longer eligible b ased on patient's age to complete this topic Varicella Vaccines Aged Out No longer eligible based on patient's age to complete this topic
== END 2024-11-24 20:07 | disposition left against medical advice (07) ==
PROVIDERS: Nurse Practitioner Family; Emergency Provider Emergency Medicine; PCP Internal Medicine Geriatric Medicine
DX: K08.89 Other specified disorders of teeth and supporting structures (principal)
CPT/HCPCS: 36415; 80048; 85025; 99281; 99283